=== PATIENT | male | born 1955 | race Caucasian/White ===

== ENCOUNTER → 2016-12-08 | Outpatient (CLI) | payer BC ==
[2016-12-08 08:08] LABS: ALT 30 U/L (21-72); AST 20 U/L (17-59); Alkaline Phosphatase 100 U/L (38-126); Anion Gap 9 mmol/L; Blood Urea Nitrogen 17 mg/dL (9-20); Calcium 9.3 mg/dL (8.4-10.2); Carbon Dioxide 30 mmol/L (22-30); Chloride 104 mmol/L (98-107); Cholesterol 126 mg/dL (<200); Glucose 113 mg/dL (74-99); HDL Cholesterol 47 mg/dL (40-60); Non-African American GFR(MDRD) >60 (>60 ml/min/1.73 sqM); Sodium 143 mmol/L (137-145); Total Bilirubin 0.6 mg/dL (0.2-1.3); Total Protein 6.4 g/dL (6.3-8.2); Triglycerides 88 mg/dL (<150)
== END | disposition home or self-care (01) ==
LOC: LABWHC1 07:14
PROVIDERS: ATTEND Internal Medicine Interventional Cardiology
DX: E78.2 Mixed hyperlipidemia (principal)
CPT/HCPCS: 36415; 80053; 80061

== ENCOUNTER → 2018-05-24 | Outpatient (CLI) | payer BC ==
[2018-05-24 08:29] LABS: ALT 32 U/L (21-72); AST 27 U/L (17-59); Albumin 4.2 g/dL (3.5-5.0); Alkaline Phosphatase 85 U/L (38-126); Anion Gap 8 mmol/L; Blood Urea Nitrogen 16 mg/dL (9-20); Calcium 9.2 mg/dL (8.4-10.2); Carbon Dioxide 29 mmol/L (22-30); Chloride 104 mmol/L (98-107); Cholesterol 125 mg/dL (<200); Glucose 112 mg/dL (74-99); HDL Cholesterol 41 mg/dL (40-60); LDL Cholesterol,Calculated 67 mg/dL (0-99); Potassium 3.9 mmol/L (3.5-5.1); Sodium 141 mmol/L (137-145); Total Bilirubin 0.4 mg/dL (0.2-1.3); Total Protein 6.6 g/dL (6.3-8.2); Triglycerides 85 mg/dL (<150)
== END | disposition home or self-care (01) ==
LOC: LABWHC1 07:33
PROVIDERS: ATTEND Internal Medicine Interventional Cardiology
DX: E78.2 Mixed hyperlipidemia (principal)
CPT/HCPCS: 36415; 80053; 80061

== ENCOUNTER → 2018-07-12 | Outpatient (CLI) | payer BC ==
[2018-07-12 07:46] LABS: HCT 48.6 % (39.0-53.0); HGB 15.7 gm/dL (13.0-17.5); MCH 29.7 pg (25.0-35.0); MCHC 32.4 g/dL (31.0-37.0); MCV 91.8 fL (80.0-100.0); Mean Platelet Volume 6.8; Platelet Count 315 k/uL (150-450); RDW 13.2 % (11.5-15.5); WBC 8.3 k/uL (3.8-10.6)
== END | disposition home or self-care (01) ==
LOC: LABPAT 07:17
PROVIDERS: ATTEND Surgery Plastic and Reconstructive Surgery
DX: Z01.812 Encounter for preprocedural laboratory examination (principal)
CPT/HCPCS: 36415; 85027

== ENCOUNTER 2018-07-16 05:50 | Day surgery (SDC) | payer BC ==
[2018-07-08 14:10] VITALS: BMI 31.9
[~2018-07-16 05:50] MED LIST: DEXAMETHASONE SOD PHOSPHATE 10 MG/ML 1 ML VIAL IV ONE; HEPARIN SODIUM,PORCINE 5,000 UNIT/ML 1 ML VIAL SQ ONE; LACTATED RINGERS 1,000 ML IV SCH; MIDAZOLAM 2 MG/2 ML VIAL IV PRN; ONDANSETRON 4 MG/2 ML VIAL IVP ONE; SCOPOLAMINE 1.5MG/72HR PATCH TRANSDERM ONE; ceFAZolin IN SWFI 2 GM/20 ML SYRINGE IVP ONE; fentaNYL (PF) 50 MCG/ML 2 ML AMP IV PRN
[2018-07-16] MEDS ORDERED: LIDOCAINE 1% 20 ML VIAL (10MG/ML) FOR IV START INTRADERMA ONE (06:23)
[2018-07-16] MEDS ORDERED: BUPIVACAIN-EPI 0.25%-1:200,000 30 ML VIAL SQ ONE (07:25)
--- NOTE | 2018-07-16 07:36 | P.GSHP ---
History of Present Illness H&P Date: 07/16/18 CHIEF COMPLAINT: Ventral hernia HISTORY OF PRESENT ILLNESS: The patient is a 63-year-old male who presents with a history of swelling and pain along the abdomen from a hernia. Now he presents for surgical intervention. PAST MEDICAL HISTORY: Please see list. PAST SURGICAL HISTORY: Please see list. MEDICATIONS: Please see list. ALLERGIES: Please see list. SOCIAL HISTORY: No illicit drug use FAMILY HISTORY: No reports of Crohn disease or ulcerative colitis. REVIEW OF ORGAN SYSTEMS: CONSTITUTIONAL: No reports of fevers or chills. No reports of weight loss despite prior attempts. GI: Denies any blood in stools or constipation. PHYSICAL EXAM: VITAL SIGNS: Stable GENERAL: Well-developed pleasant male in no acute distress. HEENT: No scleral icterus. Extraocular movements grossly intact. Moist buccal mucosa. NECK: Supple without lymphadenopathy. CHEST: Unlabored respirations. Equal bilateral excursions. CARDIOVASCULAR: Regular rate and rhythm. Distal 2+ pulses. ABDOMEN: Soft, nondistended. Palpable defect of the abdomen. No peritoneal signs. MUSCULOSKELETAL: No clubbing, cyanosis, or edema. ASSESSMENT: 1. Ventral hernia PLAN: 1. Recommend proceeding with robotic ventral hernia repair with mesh. 2. Benefits and risks of surgical intervention was discussed including possibility of open technique. 3. DVT prophylaxis. 4. Antibiotic prophylaxis. Past Medical History Past Medical History: Coronary Artery Disease (CAD), CVA/TIA, Hyperlipidemia, Hypertension, Myocardial Infarction ([place]) Additional Past Medical History / Comment(s): JUN 22. Last Myocardial Infarction Date:: UNKNOWN History of Any Multi-Drug Resistant Organisms: None Reported Past Surgical History: Tonsillectomy Past Anesthesia/Blood Transfusion Reactions: No Reported Reaction Past Alcohol Use History: None Reported - Past Family History Mother Family Medical History: Deep Vein Thrombosis (DVT) Medications and Allergies Home Medications Medication Instructions Recorded Confirmed Type Aspirin EC [Ecotrin] 81 mg PO HS 07/25/14 07/16/18 History Atorvastatin [Lipitor] 20 mg PO HS 07/25/14 07/16/18 History Losartan Potassium 100 mg PO QAM 07/25/14 07/16/18 History Metoprolol Succinate 25 mg PO QAM 07/25/14 07/16/18 History amLODIPine BESYLATE [Norvasc] 10 mg PO HS 07/25/14 07/16/18 History Cholecalciferol (Vitamin D3) 2,000 unit PO DAILY 02/23/15 07/16/18 History [Vitamin D] Tamsulosin HCl 0.4 mg PO DAILY 02/23/15 07/16/18 History Ubidecarenone [Co Q-10] 100 mg PO HS 02/23/15 07/16/18 History Vitamin B Complex 1 cap PO DAILY 02/23/15 07/16/18 History Clopidogrel [Plavix] 75 mg PO DAILY 07/08/18 07/16/18 History Glucosamine Sulfate 500 mg PO DAILY 07/08/18 07/16/18 History Isosorbide Mononitrate [Isosorbide 30 mg PO DAILY 07/08/18 07/16/18 History Mononitrate ER] Updraft DAILY PRN 07/16/18 History Allergies Allergy/AdvReac Type Severity Reaction Status Date / Time naproxen sodium [From Aleve] Allergy Rash/Hives Verified 07/16/18 06:14 Surgical - Exam Vital Signs Temp Pulse Resp BP Pulse Ox 97.8 F 59 L 16 102/69 95 07/16/18 06:10 07/16/18 06:10 07/16/18 06:10 07/16/18 06:10 07/16/18 06:10
[2018-07-16] MEDS ORDERED: GLYCOPYRROLATE 0.2 MG/ML 2 ML VIAL ONE (07:42)
[2018-07-16] MEDS ORDERED: LIDOCAINE 1% INJ 10MG/ML (20 ML MDV) ONE (07:42)
[2018-07-16] MEDS ORDERED: SUCCINYLCHOLINE CHLORIDE 100 MG/5 ML SYR IV ONE (07:42)
[2018-07-16] MEDS ORDERED: PROPOFOL 10 MG/ML 20 ML VIAL IV ONE (07:42)
[2018-07-16] MEDS ORDERED: NEOSTIGMINE 1 MG/ML 10 ML VIAL ONE (07:42)
[2018-07-16] MEDS ORDERED: PHENYLEPHRINE-0.9% NACL SYG 1 MG/10 ML SYRINGE ONE (07:42)
[2018-07-16] MEDS ORDERED: MIDAZOLAM 2 MG/2 ML VIAL ONE (07:42)
[2018-07-16] MEDS ORDERED: ROCURONIUM BROMIDE 10 MG/ML 10 ML VIAL IV ONE (07:42)
[2018-07-16] MEDS ORDERED: ePHEDrine SULFATE/0.9% NACL/PF 50 MG/5 ML SYRINGE IV ONE (07:42)
[2018-07-16] MEDS ORDERED: LACTATED RINGERS 1,000 ML IV ONE ×3 (08:00→10:58)
--- NOTE | 2018-07-16 09:18 | P.OP ---
Date of Procedure: 07/16/18 Description of Procedure: SURGEON: ANNA BLACKMON MD PREOPERATIVE DIAGNOSES: 1. Initial umbilical ventral hernia 2. Ischemic cardiomyopathy 3. Chronic obstructive pulmonary disease 4. Hypertensive heart disease 5. Prostatic hypertrophy disorder 6. Hyperlipidemia 7. Obesity due to excess calories, BMI 32.0 POSTOPERATIVE DIAGNOSES: 1. Initial umbilical ventral hernia, incarcerated 3 cm. 2. Ischemic cardiomyopathy 3. Chronic obstructive pulmonary disease 4. Hypertensive heart disease 5. Prostatic hypertrophy disorder 6. Hyperlipidemia 7. Obesity due to excess calories, BMI 32.0 OPERATION: 1. Robotic-assisted da Torres Xi laparoscopic repair of 3 cm initial incarcerated umbilical ventral hernia mesh, ventralight ST mesh 11.4 cm ANESTHESIA: General with local ESTIMATED BLOOD LOSS: 5 mL. SPECIMENS: None. COMPLICATIONS: None. INDICATIONS: The patient is a 63-year-old male who presents with pain along the epigastrium including periumbilical pain. Surgical intervention with laparoscopic versus robotic and open techniques were reviewed. Placement of mesh was also reviewed. Benefits and risks were thoroughly described. Informed consent was obtained. DESCRIPTION OF PROCEDURE: The patient was brought into the operating room and laid in supine position. After general induction, the abdomen had been prepped and draped in standard sterile fashion. Ioban draping was also placed. Prior to incision, a timeout protocol was confirmed with surgical team regarding the patient's name including procedures to be performed. The robot was primed prior to the procedure. A field block using local anesthetis was placed along hernia site including the proposed port sites. Initial incision was made with an #11 blade along the left upper quadrant. A 0 degree 5 mm laparoscopic trocar entry was performed. An incarcerated ventral hernia of the umbilicus was identified. A 8 mm trocar was placed along the right lateral abdominal wall approximately 12 cm lateral to the lower midline. An 8 mm port was placed along the right lower quadrant under direct localization. An 8-mm port was along the right lateral mid-abdominal wall. Placements of the ports were 15 cm from the target anatomy and 10 cm apart. The [employer] Xi robot was previously primed, prepped and draped then docked along the left side of the patient. I then sat at the robot Mirego Torres Xi console where working arms of the robot including Bovie cautery connected to robotic scissors, needle school bus driver, and graspers placed by the [employer] assistant manager. The incarcerated contents was reduced as the peritoneal fat was cleaned from the abdominal wall. Next, hemostasis was checked with cautery. The hernia defect was oversewn using #1 Stratafix with imbrication 3. Next, ventralight ST mesh 11.4 cm was placed with the rough side towards the abdominal wall. 2-0 VLOC 9 inch sutures were used to fixate the mesh. A final endoscopic imaging was obtained. All instruments and pneumoperitoneum were evacuated from the abdominal cavity. The da Torres Xi robot was undocked from the patient. I re-scrubbed into the case for closure of incisions. The incisions were reapproximated using 4-0 Monocryl in an interrupted subcuticular fashion. Liquid glue was applied to the skin after cleansing the skin with normal saline and dilute hydrogen peroxide. A dressing was placed at the umbilicus ith three(3) 4 x 4 gauze followed by Tegaderm. An abdominal binder was placed. At the end of the procedure, needle, sponge, and instrument count had been verified correct by medical surgical tech. The patient was taken to the postanesthesia care unit in stable condition. FINDINGS: 1. Ventral/Umbilical incarcerated hernia of the epigastrium, 3 x 3 cm 2. Console time 28 minutes Plan - Discharge Summary New Discharge Prescriptions: No Action Aspirin EC [Ecotrin] 81 mg PO HS amLODIPine BESYLATE [Norvasc] 10 mg PO HS Atorvastatin [Lipitor] 20 mg PO HS Metoprolol Succinate 25 mg PO QAM Losartan Potassium 100 mg PO QAM Tamsulosin HCl 0.4 mg PO DAILY Vitamin B Complex 1 cap PO DAILY Ubidecarenone [Co Q-10] 100 mg PO HS Cholecalciferol (Vitamin D3) [Vitamin D] 2,000 unit PO DAILY Isosorbide Mononitrate [Isosorbide Mononitrate ER] 30 mg PO DAILY Clopidogrel [Plavix] 75 mg PO DAILY Glucosamine Sulfate 500 mg PO DAILY Updraft DAILY PRN PRN Reason: Dyspnea Discharge Medication List Aspirin EC [Ecotrin] 81 mg PO HS 07/25/14 [History] Atorvastatin [Lipitor] 20 mg PO HS 07/25/14 [History] Losartan Potassium 100 mg PO QAM 07/25/14 [History] Metoprolol Succinate 25 mg PO QAM 07/25/14 [History] amLODIPine BESYLATE [Norvasc] 10 mg PO HS 07/25/14 [History] Cholecalciferol (Vitamin D3) [Vitamin D] 2,000 unit PO DAILY 02/23/15 [History] Tamsulosin HCl 0.4 mg PO DAILY 02/23/15 [History] Ubidecarenone [Co Q-10] 100 mg PO HS 02/23/15 [History] Vitamin B Complex 1 cap PO DAILY 02/23/15 [History] Clopidogrel [Plavix] 75 mg PO DAILY 07/08/18 [History] Glucosamine Sulfate 500 mg PO DAILY 07/08/18 [History] Isosorbide Mononitrate [Isosorbide Mononitrate ER] 30 mg PO DAILY 07/08/18 [ History] Updraft DAILY PRN 07/16/18 [History]
[2018-07-16] MEDS ORDERED: TAMSULOSIN 0.4 MG CAP.ER.24H PO STA (09:20)
[2018-07-16] MEDS ORDERED: HYDROmorphone 1 MG/ML 1 ML SYRINGE IVP ONE ×3 (09:47→15:19)
[2018-07-16] MEDS ORDERED: HYDROcodone/APAP 5-325MG 1 EACH TAB PO ONE (10:47)
[2018-07-16] MEDS ORDERED: ALBUTEROL NEBULIZED 2.5 MG/3 ML INHALATION ONE (12:49)
[2018-07-16] MEDS ORDERED: TAMSULOSIN 0.4 MG CAP.ER.24H PO ONE (14:14)
[2018-07-16] MEDS ORDERED: HYDROmorphone 1 MG/ML 1 ML SYRINGE IVP PRN (15:19)
[2018-07-16 16:24] VITALS: RESP 18
[2018-07-16] MEDS ORDERED: SODIUM CHLORIDE 0.9% 1,000 ML IV ONE (20:14)
[2018-07-16] MEDS ORDERED: ATORVASTATIN 20 MG TAB PO SCH (21:00)
[2018-07-16] MEDS ORDERED: ASPIRIN 81 MG PO SCH (21:00)
[2018-07-16] MEDS ORDERED: amLODIPine 10 MG TAB PO SCH (21:00)
[2018-07-16] MEDS ORDERED: SODIUM CHLORIDE 0.9% 1,000 ML IV SCH (21:30)
[2018-07-16] MEDS: TAMSULOSIN 0.4 MG CAP.ER.24H PO SCH (21:45)
[2018-07-16] MEDS: HYDROcodone/APAP 5-325MG 1 EACH TAB PO PRN (22:25)
[2018-07-17 01:34] VITALS: PULSE 80
[2018-07-17] MEDS: HYDROcodone/APAP 5-325MG 1 EACH TAB PO PRN ×2 (06:27→13:30)
--- NOTE | 2018-07-17 08:40 | P.PN ---
Subjective Progress Note Date: 07/16/18 HISTORY OF PRESENT ILLNESS: The patient is a 63-year-old gentleman who had a ventral hernia repair. Discharge was held secondary to inability to urinate and intraoperative low tidal volume upon induction of anesthesia. Patient has history of COPD Baseline. At the time of my assessment, pain was controlled. Patient was pending spontaneously voidance of urine. He has history of prostate disorder. PHYSICAL EXAM: GENERAL: Well-developed in no acute distress. HEENT: No scleral icterus. Extraocular movements grossly intact. Hears conversational speech. No nasal drainage. NECK: Supple without lymphadenopathy. CHEST: Nonlabored respirations with equal bilateral excursions. CARDIOVASCULAR: Regular rate and regular rhythm. Distal 2+ pulses. ABDOMEN: Obese, soft, nontender, nondistended. MUSCULOSKELETAL: No clubbing, cyanosis. Gross strength 5/5 distal lower extremities. 2+ pre-tibial pitting edema. NEURO: No focal or lateralizing signs. Cranial nerves 2 through 12 grossly within normal limits. PSYCH: Appropriate affect. Alert and oriented to person, place and time. ASSESSMENT: 1. Status post ventral hernia repair, robotic 2. Moderate to severe COPD 3. Prostatic disorder PLAN: 1. Discharge home pending spontaneous void 2. Pulmonary consultation obtained for moderate severe COPD Objective - Vital Signs Vital signs: Vital Signs Temp 97.6 F 07/16/18 23:26 Pulse 80 07/16/18 23:26 Resp 18 07/16/18 23:26 BP 136/82 07/16/18 23:26 Pulse Ox 93 L 07/16/18 23:26 Intake & Output 07/16/18 07/17/18 07/17/18 18:59 06:59 18:59 Intake Total 3588 1750 Output Total 505 2980 Balance 3083 -1230 Weight 87.09 kg Intake: IV 3050 Intake, IV Titration 1750 Amount Sodium Chloride 0.9% 1, 750 000 ml @ 50 mls/hr IV . Q20H [facility] Rx#:[id number] Sodium Chloride 0.9% 1, 1000 000 ml @ 999 mls/hr IV . Q1H1M [facility] Rx#:[id number] Oral 538 Output: Urine 500 2980 Straight 500 Estimated Blood Loss 5 Other: # Voids 4
--- NOTE | 2018-07-17 08:55 | P.DS ---
Providers Date of admission: 07/16/18 Expected date of discharge: 07/17/18 Attending physician: Erica Escalona Primary care physician: Rolly Randall - Discharge Diagnosis(es) (1) Incarcerated ventral hernia Current Visit: Yes Status: Acute (2) COPD (chronic obstructive pulmonary disease) Current Visit: Yes Status: Acute (3) Prostate disease Current Visit: Yes Status: Acute (4) Ischemic cardiomyopathy Current Visit: Yes Status: Acute Hospital Course: POSTOPERATIVE DIAGNOSES: 1. Initial umbilical ventral hernia, incarcerated 3 cm. 2. Ischemic cardiomyopathy 3. Chronic obstructive pulmonary disease 4. Hypertensive heart disease 5. Prostatic hypertrophy disorder 6. Hyperlipidemia 7. Obesity due to excess calories, BMI 32.0 COURSE: The patient is a 63-year-old male who presents with pain along the epigastrium including periumbilical pain. Surgical intervention with laparoscopic versus robotic and open techniques were reviewed. Placement of mesh was also reviewed. Benefits and risks were thoroughly described. Informed consent was obtained. Postprocedure, his pain was poorly controlled. He also had difficulty voiding. He was placed in outpatient status for prolonged postoperative recovery. Prior to discharge, he was voiding spontaneously. Patient has history of chronic COPD. He will follow up with his primary care provider as well. Follow -up in the office 3 days. Procedures: OPERATION: 1. Robotic-assisted da Torres Xi laparoscopic repair of 3 cm initial incarcerated umbilical ventral hernia mesh, ventralight ST mesh 11.4 cm ANESTHESIA: General with local ESTIMATED BLOOD LOSS: 5 mL. SPECIMENS: None. COMPLICATIONS: None. Patient Condition at Discharge: Stable Plan - Discharge Summary Discharge Rx Participant: Yes New Discharge Prescriptions: New HYDROcodone/APAP 5-325MG [[place]rill 5-325] 1 tab PO Q6HR PRN 3 Days #12 tab PRN Reason: Pain No Action Aspirin EC [Ecotrin] 81 mg PO HS amLODIPine BESYLATE [Norvasc] 10 mg PO HS Atorvastatin [Lipitor] 20 mg PO HS Metoprolol Succinate 25 mg PO QAM Losartan Potassium 100 mg PO QAM Tamsulosin HCl 0.4 mg PO DAILY Vitamin B Complex 1 cap PO DAILY Ubidecarenone [Co Q-10] 100 mg PO HS Cholecalciferol (Vitamin D3) [Vitamin D] 2,000 unit PO DAILY Isosorbide Mononitrate [Isosorbide Mononitrate ER] 30 mg PO DAILY Clopidogrel [Plavix] 75 mg PO DAILY Glucosamine Sulfate 500 mg PO DAILY Updraft DAILY PRN PRN Reason: Dyspnea Discharge Medication List Aspirin EC [Ecotrin] 81 mg PO HS 07/25/14 [History] Atorvastatin [Lipitor] 20 mg PO HS 07/25/14 [History] Losartan Potassium 100 mg PO QAM 07/25/14 [History] Metoprolol Succinate 25 mg PO QAM 07/25/14 [History] amLODIPine BESYLATE [Norvasc] 10 mg PO HS 07/25/14 [History] Cholecalciferol (Vitamin D3) [Vitamin D] 2,000 unit PO DAILY 02/23/15 [History] Tamsulosin HCl 0.4 mg PO DAILY 02/23/15 [History] Ubidecarenone [Co Q-10] 100 mg PO HS 02/23/15 [History] Vitamin B Complex 1 cap PO DAILY 02/23/15 [History] Clopidogrel [Plavix] 75 mg PO DAILY 07/08/18 [History] Glucosamine Sulfate 500 mg PO DAILY 07/08/18 [History] Isosorbide Mononitrate [Isosorbide Mononitrate ER] 30 mg PO DAILY 07/08/18 [ History] HYDROcodone/APAP 5-325MG [Morrill 5-325] 1 tab PO Q6HR PRN 3 Days #12 tab [Rx] Updraft DAILY PRN 07/16/18 [History] Follow up Appointment(s)/Referral(s): Erica Escalona MD [STAFF PHYSICIAN] - 07/19/18 Patient Instructions/Handouts: How to Use an Incentive Spirometer (ED), How to Use an Incentive Spirometer (DC), How to Use an Incentive Spirometer (GEN), Laparoscopic Herniorrhaphy (DC), Abdominal Binder (DC) Activity/Diet/Wound Care/Special Instructions: No lifting for 4 pounds in 4 weeks. May shower. Do not remove dressing. Wear abdominal binder at all times except for showering. Discharge Disposition: HOME SELF-CARE
[2018-07-17] MEDS ORDERED: LOSARTAN 50 MG TAB PO SCH (09:00)
[2018-07-17] MEDS ORDERED: NON-FORMULARY DRUG (Glucosamine Sulfate 500 MG) PO SCH (09:00)
[2018-07-17] MEDS ORDERED: METOPROLOL SUCCINATE (ER) 25 MG TAB.ER.24H PO SCH (09:00)
[2018-07-17] MEDS ORDERED: CLOPIDOGREL 75 MG TAB PO SCH (09:00)
[2018-07-17] MEDS ORDERED: ISOSORBIDE MONONITRATE ER 30 MG TAB.ER.24H PO SCH (09:00)
[2018-07-17] MEDS ORDERED: CHOLECALCIFEROL 1,000 UNIT TAB PO SCH (09:00)
[2018-07-17] MEDS: TAMSULOSIN 0.4 MG CAP.ER.24H PO SCH (09:57)
[2018-07-17 10:56] VITALS: BP 121/83; TEMP 97.8
== END 2018-07-17 13:36 | disposition home or self-care (01) ==
LOC: OR 05:50 → 3SUR 09:18 → OR 07-17 13:36
PROVIDERS: ATTEND Surgery Plastic and Reconstructive Surgery
DX: K43.6 Other and unspecified ventral hernia with obstruction, without gangrene (principal); I25.5 Ischemic cardiomyopathy; J44.9 Chronic obstructive pulmonary disease, unspecified; I25.10 Atherosclerotic heart disease of native coronary artery without angina pectoris; I11.9 Hypertensive heart disease without heart failure; I25.2 Old myocardial infarction; N40.0 Benign prostatic hyperplasia without lower urinary tract symptoms; E78.5 Hyperlipidemia, unspecified; E66.9 Obesity, unspecified; Z68.32 Body mass index [BMI] 32.0-32.9, adult; G47.33 Obstructive sleep apnea (adult) (pediatric); Z99.89 Dependence on other enabling machines and devices; Z86.73 Personal history of transient ischemic attack (TIA), and cerebral infarction without residual deficits; Z79.02 Long term (current) use of antithrombotics/antiplatelets; Z79.82 Long term (current) use of aspirin; Z79.899 Other long term (current) drug therapy; Z88.6 Allergy status to analgesic agent
CPT/HCPCS: 49653; S2900

== ENCOUNTER → 2018-12-16 | Outpatient (CLI) | payer BC ==
[2018-12-16 18:20] LABS: Albumin 4.1 g/dL (3.80-4.90); Albumin/Globulin Ratio 2.16 (1.60-3.17); Anion Gap 9.9 mmol/L (4.00-12.00); Calcium 9.5 mg/dL (8.7-10.3); Carbon Dioxide 26.1 mmol/L (21.6-31.8); Globulin 1.9 g/dL (1.6-3.3); LDL Cholesterol,Calculated 75.6 mg/dL (0.0-131.0); Potassium 4.5 mmol/L (3.5-5.5); Total Bilirubin 0.7 mg/dL (0.2-1.2); VLDL Calculation 26.4 mg/dL (5.00-40.00)
== END | disposition home or self-care (01) ==
LOC: LABWHC1 11:23
PROVIDERS: ATTEND Internal Medicine Interventional Cardiology
DX: E78.2 Mixed hyperlipidemia (principal)
CPT/HCPCS: 36415; 80053; 80061

== ENCOUNTER → 2019-04-14 | Outpatient (CLI) | payer BC ==
[2019-04-14 11:07] LABS: LDL Cholesterol,Calculated 76.4 mg/dL (0.0-131.0); VLDL Calculation 14.6 mg/dL (5.00-40.00)
== END | disposition home or self-care (01) ==
LOC: LABWHC1 06:49
PROVIDERS: ATTEND Internal Medicine Interventional Cardiology
DX: E78.2 Mixed hyperlipidemia (principal)
CPT/HCPCS: 36415; 80061; 84450; 84460

== ENCOUNTER 2019-07-09 11:00 | Emergency (ER) | payer BC ==
[2019-07-09 11:07] VITALS: BP 124/79; PULSE 57; RESP 18; TEMP 97.9
--- NOTE | 2019-07-09 11:34 | ED ---
General Adult HPI - General Chief complaint: Fall Stated complaint: fall, knee pain Time Seen by Provider: 07/09/19 11:12 Source: patient, RN notes reviewed Mode of arrival: ambulatory Limitations: no limitations - History of Present Illness Initial comments: Patient is a pleasant 64-year-old male presents emergency Department with complaints of right knee discomfort. Patient had just slipped and fallen yesterday. Patient slipped on wet floor going down the stairs. Patient twisted his knee. Patient does not believe she really landed on his knee. Patient did lightly strike his head. No headache. No loss of consciousness. No blood thinners. No weakness or confusion. Patient states he is able to ambulate on his right knee however is painful. No history of significant injury to this area previously. Discomfort is mild at rest but severe with movement. - Related Data Home Medications Medication Instructions Recorded Confirmed Aspirin EC [Ecotrin] 81 mg PO HS 07/25/14 07/09/19 Atorvastatin [Lipitor] 20 mg PO HS 07/25/14 07/09/19 Losartan Potassium 100 mg PO HS 07/25/14 07/09/19 Metoprolol Succinate 25 mg PO HS 07/25/14 07/09/19 amLODIPine BESYLATE [Norvasc] 10 mg PO HS 07/25/14 07/09/19 Cholecalciferol (Vitamin D3) 2,000 unit PO HS 02/23/15 07/09/19 [Vitamin D] Tamsulosin HCl 0.4 mg PO HS 02/23/15 07/09/19 Ubidecarenone [Co Q-10] 100 mg PO HS 02/23/15 07/09/19 Vitamin B Complex 1 cap PO HS 02/23/15 07/09/19 Clopidogrel [Plavix] 75 mg PO DAILY 07/08/18 07/16/18 Glucosamine Sulfate 500 mg PO DAILY 07/08/18 07/16/18 Isosorbide Mononitrate [Isosorbide 30 mg PO HS 07/08/18 07/09/19 Mononitrate ER] Updraft DAILY PRN 07/16/18 Tiotropium Br/Olodaterol HCl 1 spray INHALATION RT-BID 07/09/19 07/09/19 [Stiolto Respimat Inhal [place]] Previous Rx's Medication Instructions Recorded HYDROcodone/APAP 5-325MG [[place] 1 tab PO Q6HR PRN 3 Days #12 tab 07/16/18 5-325] Ibuprofen [Motrin] 600 mg PO Q6HR PRN #20 tab 07/09/19 Allergies Allergy/AdvReac Type Severity Reaction Status Date / Time naproxen sodium [From Aleve] Allergy Rash/Hives Verified 07/09/19 11:48 Review of Systems ROS Statement: Those systems with pertinent positive or pertinent negative responses have been documented in the HPI. ROS Other: All systems not noted in ROS Statement are negative. Constitutional: Denies: fever Eyes: Denies: eye pain ENT: Denies: ear pain Respiratory: Denies: cough Cardiovascular: Denies: chest pain Endocrine: Denies: fatigue Gastrointestinal: Denies: abdominal pain Genitourinary: Denies: dysuria Musculoskeletal: Denies: back pain Skin: Denies: rash Neurological: Denies: weakness Past Medical History Past Medical History: Coronary Artery Disease (CAD), CVA/TIA, Hyperlipidemia, Hypertension, Myocardial Infarction ([place]) Additional Past Medical History / Comment(s): JUN 22. Last Myocardial Infarction Date:: UNKNOWN History of Any Multi-Drug Resistant Organisms: None Reported Past Surgical History: Tonsillectomy Additional Past Surgical History / Comment(s): ventral hernia repair Past Anesthesia/Blood Transfusion Reactions: No Reported Reaction Past Psychological History: No Psychological Hx Reported Smoking Status: Former smoker Past Alcohol Use History: None Reported Past Drug Use History: None Reported - Past Family History Mother Family Medical History: Deep Vein Thrombosis (DVT) General Exam Limitations: no limitations General appearance: alert, in no apparent distress Head exam: Present: atraumatic Eye exam: Present: normal appearance Neck exam: Present: normal inspection. Absent: tenderness Respiratory exam: Present: normal lung sounds bilaterally Cardiovascular Exam: Present: regular rate, normal rhythm Expanded Peripheral pulses: 2+: Posterior Tibialis (R), Dorsalis Pedis (R) GI/Abdominal exam: Present: soft. Absent: tenderness Extremities exam: Present: other (Stable on exam. Mild swelling. Moderate tenderness. Distally the extremity is neurovascular intact.) Right Knee exam: Present: tenderness (Moderate tenderness), swelling (Mild swelling). Absent: posterior draw sign, pain/laxity with valgus, pain/laxity with varus Neurological exam: Present: alert. Absent: motor sensory deficit Psychiatric exam: Present: normal affect, normal mood Skin exam: Present: normal color Course Vital Signs 07/09/19 11:04 Temperature 97.9 F Pulse Rate 57 L Respiratory 18 Rate Blood Pressure 124/79 O2 Sat by Pulse 95 Oximetry Medical Decision Making - Medical Decision Making Patient reevaluated. Patient and family updated. - Radiology Data Radiology results: image reviewed (X-ray of the right knee shows possible small effusion, no fracture.) Disposition Clinical Impression: Fall, Knee sprain Disposition: HOME SELF-CARE Condition: Stable Instructions (If sedation given, give patient instructions): Knee Sprain (ED) Additional Instructions: Ice to affected area. Limit weightbearing. Use knee immobilizer. Please follow-up with primary care physician in the next couple days for recheck. If symptoms continue consider orthopedic evaluation. Cannot completely exclude injury to the cartilage or ligaments at this time. [id number] anti- inflammatories as needed. Return for increased pain, swelling, fever, redness, worsening symptoms or other concerns. Motrin 600 prescription has been sent to [facility] in [place] Prescriptions: Ibuprofen [Motrin] 600 mg PO Q6HR PRN #20 tab PRN Reason: Pain Is patient prescribed a controlled substance at d/c from ED?: No Referrals: Rolly Randall MD [Primary Care Provider] - 1-2 days Time of Disposition: 12:46
[2019-07-09] MEDS ORDERED: HYDROmorphone 1 MG/ML 1 ML SYRINGE IM STA (11:44)
--- NOTE | 2019-07-09 12:04 | XR ---
EXAMINATION TYPE: XR knee complete RT , 3 VIEWS DATE OF EXAM ORDERED: 07/09/2019 HISTORY: twist/fallpain. COMPARISON: None. FINDINGS: No fracture or dislocation is seen. There is fullness in the suprapatellar region suggesti ve of an effusion. IMPRESSION: 1. NO ACUTE OSSEOUS LESION. 2. I SUSPECT A SMALL JOINT EFFUSION.
[2019-07-09] MEDS ORDERED: ACET/COD 300 MG/30 MG STARTER PACK 6 TAB BTL PO STA (12:47)
== END 2019-07-09 13:05 | disposition home or self-care (01) ==
LOC: EC 11:00
DX: S83.91XA Sprain of unspecified site of right knee, initial encounter (principal); I25.10 Atherosclerotic heart disease of native coronary artery without angina pectoris; E78.5 Hyperlipidemia, unspecified; I10 Essential (primary) hypertension; I25.2 Old myocardial infarction; Z87.891 Personal history of nicotine dependence; Z88.6 Allergy status to analgesic agent; Z79.02 Long term (current) use of antithrombotics/antiplatelets; Z79.82 Long term (current) use of aspirin; Z79.899 Other long term (current) drug therapy; Z86.73 Personal history of transient ischemic attack (TIA), and cerebral infarction without residual deficits; W01.0XXA Fall on same level from slipping, tripping and stumbling without subsequent striking against object, initial encounter; W10.9XXA Fall (on) (from) unspecified stairs and steps, initial encounter; Y93.01 Activity, walking, marching and hiking
CPT/HCPCS: 73562; 99283; 96372; J1170

== ENCOUNTER → 2019-10-10 | Outpatient (CLI) | payer BC ==
[2019-10-10 17:28] LABS: African American GFR (CKD) 92.4 (60.0-200.0); Albumin 4.3 g/dL (3.80-4.90); Albumin/Globulin Ratio 2.53 (1.60-3.17); Anion Gap 6.8 mmol/L (4.00-12.00); Carbon Dioxide 29.2 mmol/L (21.6-31.8); Chol/HDL Ratio 3.07; Globulin 1.7 g/dL (1.6-3.3); LDL Cholesterol,Calculated 69.6 mg/dL (0.0-131.0); Non-African American GFR(CKD) 79.7 (60.0-200.0); Potassium 3.9 mmol/L (3.5-5.5); Total Bilirubin 0.7 mg/dL (0.2-1.2); VLDL Calculation 21.4 mg/dL (5.00-40.00)
== END | disposition home or self-care (01) ==
LOC: LABWHC1 07:38
PROVIDERS: ATTEND Nurse Practitioner Adult Health
DX: I10 Essential (primary) hypertension (principal); E78.2 Mixed hyperlipidemia; I25.5 Ischemic cardiomyopathy
CPT/HCPCS: 36415; 80053; 80061

== ENCOUNTER 2021-02-05 17:19 | Observation (INO) | payer BC, MEDICARE ==
--- NOTE | 2021-02-05 18:12 | ED ---
Chest Pain HPI - General Chief Complaint: Chest Pain Stated Complaint: Chest Pain, sent from Time Seen by Provider: 02/05/21 17:41 Source: patient, family, RN notes reviewed Mode of arrival: wheelchair Limitations: no limitations - History of Present Illness Initial Comments: This is a 66-year-old male with a parent prior history of MIs but no history of stenting or cardiovascular procedures who states she's been having exertional dyspnea and left-sided chest pain intermittently over last 2 weeks. This is new for him he was actually in [place] when he started noticing his exertional dyspnea. He was seen by his doctor's office today and sent here for further evaluation currently is not short of breath while at rest she has slight amount left-sided chest pain he points to his left lateral costal chondral junction. No cough phlegm production fevers chills sweats or other symptoms patient also states that he has been having some edema of the stroke back from [place] he does get edema after this time he has no Pain. MD Complaint: chest pain, other - Related Data Home Medications Medication Instructions Recorded Confirmed Losartan Potassium 100 mg PO DAILY 07/25/14 02/05/21 Metoprolol Succinate 25 mg PO DAILY 07/25/14 02/05/21 Tamsulosin HCl 0.4 mg PO DAILY 02/23/15 02/05/21 Ubidecarenone [Co Q-10] 100 mg PO DAILY 02/23/15 02/05/21 Vitamin B Complex 1 cap PO DAILY 02/23/15 02/05/21 Glucosamine Sulfate 500 mg PO DAILY 07/08/18 02/05/21 Isosorbide Mononitrate [Isosorbide 30 mg PO DAILY 07/08/18 02/05/21 Mononitrate ER] Albuterol Nebulized [Ventolin 2.5 mg INHALATION RT-Q6H PRN 02/05/21 02/05/21 Nebulized] Atorvastatin Calcium [Lipitor] 20 mg PO DAILY 02/05/21 02/05/21 Furosemide [Lasix] 40 mg PO DAILY PRN 02/05/21 02/05/21 amLODIPine [Norvasc] 10 mg PO DAILY 02/05/21 02/05/21 metFORMIN HCL [Glucophage] 500 mg PO DAILY 02/05/21 02/05/21 Allergies Allergy/AdvReac Type Severity Reaction Status Date / Time naproxen sodium [From Aleve] Allergy Rash/Hives Verified 02/05/21 21:20 Review of Systems ROS Statement: Those systems with pertinent positive or pertinent negative responses have been documented in the HPI. ROS Other: All systems not noted in ROS Statement are negative. EKG Findings - EKG Results: EKG: interpreted by ASHLEY, sinus rhythm (Sinus rhythm a 72 VT interval 162 QRS 102 QT since QTC 414/453 this is consistent with the 1 presented from the office from today.) Past Medical History Past Medical History: Coronary Artery Disease (CAD), CVA/TIA, Hyperlipidemia, Hypertension, Myocardial Infarction ([place]) Additional Past Medical History / Comment(s): JUN 22. Last Myocardial Infarction Date:: UNKNOWN History of Any Multi-Drug Resistant Organisms: None Reported Past Surgical History: Tonsillectomy Additional Past Surgical History / Comment(s): ventral hernia repair Past Anesthesia/Blood Transfusion Reactions: No Reported Reaction Past Psychological History: No Psychological Hx Reported Past Alcohol Use History: None Reported Past Drug Use History: None Reported - Past Family History Mother Family Medical History: Deep Vein Thrombosis (DVT) General Exam - General Exam Comments Initial Comments: This is a well-developed well-nourished awake alert oriented 3 male Limitations: no limitations General appearance: alert, in no apparent distress Head exam: Present: atraumatic, normocephalic, normal inspection Eye exam: Present: normal appearance, PERRL, EOMI. Absent: scleral icterus, conjunctival injection, periorbital swelling ENT exam: Present: normal exam, mucous membranes moist Neck exam: Present: normal inspection, full ROM, other (No stridor JVD or bruits). Absent: tenderness, meningismus, lymphadenopathy Respiratory exam: Present: normal lung sounds bilaterally, chest wall tenderness (Reproducible left-sided chest pain this does reproduce the pain the patient has been experiencing). Absent: respiratory distress, wheezes, rales, rhonchi, stridor Cardiovascular Exam: Present: regular rate, normal rhythm, normal heart sounds. Absent: systolic murmur, diastolic murmur, rubs, gallop, clicks GI/Abdominal exam: Present: soft, normal bowel sounds. Absent: distended, tenderness, guarding, rebound, rigid Extremities exam: Present: normal inspection, full ROM, normal capillary refill, pedal edema. Absent: tenderness, joint swelling, calf tenderness Back exam: Present: normal inspection Neurological exam: Present: alert, oriented X3, CN II-XII intact Psychiatric exam: Present: normal affect, normal mood Skin exam: Present: warm, dry, intact, normal color. Absent: rash Course Vital Signs 02/05/21 02/05/21 02/05/21 17:22 17:59 20:57 Temperature 97.7 F Pulse Rate 78 56 L Pulse Rate [ 72 Legal Practice Manager ] Respiratory 20 16 18 Rate Blood Pressure 174/118 124/79 O2 Sat by Pulse 92 L Oximetry Chest Pain MDM - MDM Imaging reviewed x-ray negative CT ultrasound negative for evidence of clotting. I did discuss findings with the patient and his . Patient be admitted for cardiology consultation the presentation is consistent with unstable angina. Dr. Reynolds who is covering for Dr. Borjas Disposition Clinical Impression: Chest pain, Unstable angina pectoris Disposition: ADMITTED IP TO THIS HOSP Condition: Fair Referrals: Rolly Randall MD [Primary Care Provider] - 1-2 days
[2021-02-05 18:36] LABS: Basophils # (A) 0.1 k/uL (0-0.2); Basophils % (A) 1 %; Eosinophils # (A) 0.4 k/uL (0-0.7); Eosinophils % (A) 5 %; HCT 47.9 % (39.0-53.0); HGB 16.5 gm/dL (13.0-17.5); Lymphocytes # (A) 1.6 k/uL (1.0-4.8); Lymphocytes % (A) 21 %; MCH 30.9 pg (25.0-35.0); MCHC 34.5 g/dL (31.0-37.0); MCV 89.6 fL (80.0-100.0); Mean Platelet Volume 7.7; Monocytes # (A) 0.7 k/uL (0-1.0); Monocytes % (A) 9 %; Neutrophils % (A) 63 %; Platelet Count 270 k/uL (150-450); RBC 5.35 m/uL (4.30-5.90); RDW 13.4 % (11.5-15.5); WBC 7.9 k/uL (3.8-10.6)
[2021-02-05 18:47] LABS: ALT 16 U/L (4-49); AST 26 U/L (17-59); African American GFR (CKD) >90 (>60 ml/min/1.73 sqM); Albumin 4.6 g/dL (3.5-5.0); Alkaline Phosphatase 107 U/L (38-126); Anion Gap 9 mmol/L; Blood Urea Nitrogen 15 mg/dL (9-20); Calcium 9.8 mg/dL (8.4-10.2); Carbon Dioxide 31 mmol/L (22-30); Chloride 100 mmol/L (98-107); Creatine Kinase 216 U/L (55-170); Glucose 93 mg/dL (74-99); Non-African American GFR(CKD) >90 (>60 ml/min/1.73 sqM); Potassium 4.1 mmol/L (3.5-5.1); Sodium 140 mmol/L (137-145); Total Bilirubin 0.5 mg/dL (0.2-1.3); Total Protein 7.4 g/dL (6.3-8.2)
[2021-02-05 18:50] LABS: INR 0.9 (<1.2); Partial Thromboplastin Time 23.9 sec (22.0-30.0); Prothrombin Time 9.6 sec (9.0-12.0)
--- NOTE | 2021-02-05 18:52 | XR ---
EXAMINATION TYPE: XR chest 2V DATE OF EXAM: 02/05/2021 COMPARISON: 07/20/2014 HISTORY: Chest pain TECHNIQUE: FINDINGS: There is no heart failure nor confluent pneumonic infiltrate. There is slight increased int erstitial density at the lung bases. There are no hilar masses. There are chest leads. Bony thorax is intact. IMPRESSION: Multiple fibrotic changes. Normal heart. No adverse change.
--- NOTE | 2021-02-05 20:16 | CT ---
EXAMINATION TYPE: CT angio chest DATE OF EXAM: 02/05/2021 COMPARISON: None HISTORY: chest pain CT DLP: 465.6 mGycm Automated exposure control for dose reduction was used. CONTRAST: Performed with IV Contrast, patient injected with 85cc mL of Isovue 370. Images obtained from the thoracic inlet to the diaphragm with IV contrast and 3-D post processed imag es. There is mild pulmonary emphysema. The lungs are clear of consolidation. There is some mild subsegmen kyrie atelectasis at the lung bases. Heart size is normal. There is no pleural effusion. There is no pe ricardial effusion. There is no mediastinal adenopathy. There are no hilar masses. Thoracic aorta shows mild atheromatous change. 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 There is no dissection. There is normal contrast opacification of the pulmonary arteries. There are no filling defects. Thoracic vertebra have normal spacing and alignment. Posterior elements are intact. There is no compr ession fracture. Sternum is intact. IMPRESSION: No evidence of pulmonary embolism. Normal heart. Subsegmental atelectasis at the posterior lung bases. Mild pulmonary emphysema.
--- NOTE | 2021-02-05 21:14 | US ---
EXAMINATION TYPE: US venous doppler duplex LE DATE OF EXAM: 02/05/2021 8:57 PM COMPARISON: NONE CLINICAL HISTORY: Peripheral edema with elevated d-dimer. Peripheral edema x 5 weeks. Elevated D Dime r. No hx of DVT. Patient not taking blood thinners. SIDE PERFORMED: Bilateral TECHNIQUE: The lower extremity deep venous system is examined utilizing real time linear array sonog kenneth with graded compression, doppler sonography and color-flow sonography. VESSELS IMAGED: Common Femoral Vein Deep Femoral Vein Greater Saphenous Vein * Femoral Vein Popliteal Vein Small Saphenous Vein * Proximal Calf Veins (* superficial vessels) *Limited due to edema. Right Leg: No evidence of DVT in veins imaged at this time from prox calf veins to CFV/GSV. Duplicat e popliteal vein seen. Left Leg: No evidence of DVT in veins imaged at this time from prox calf veins to CFV/GSV. IMPRESSION: No sign of deep vein thrombosis in both legs.
[2021-02-05] MEDS ORDERED: HEPARIN SODIUM 1,000 UN/ML (10ML VL) IV ONE (21:37)
[2021-02-05] MEDS ORDERED: NITROGLYCERIN SL TABS 0.4 MG TAB SUBLINGUAL PRN (21:37)
[2021-02-05] MEDS ORDERED: ASPIRIN 81 MG PO STA (21:37)
[2021-02-05] MEDS ORDERED: ALBUTEROL NEBULIZED 2.5 MG/3 ML INHALATION PRN (21:39)
[2021-02-05] MEDS ORDERED: HEPARIN SOD,PORK IN 0.45% NACL 25,000 UNIT in 0.45% NACL 1 250ML.BAG IV SCH (21:45)
[2021-02-05 23:10] LABS: Glucose,Whole Blood 140 mg/dL (75-99)
[2021-02-06 04:17] LABS: Cholesterol 138 mg/dL (<200); HDL Cholesterol 46 mg/dL (40-60); LDL Cholesterol,Calculated 80 mg/dL (0-99); Triglycerides 62 mg/dL (<150)
[2021-02-06 07:23] LABS: Glucose,Whole Blood 106 mg/dL (75-99)
[2021-02-06] MEDS ORDERED: NON FORMULARY DRUG (Glucosamine Sulfate 500 MG Cap) PO SCH (09:00)
[2021-02-06] MEDS ORDERED: FUROSEMIDE 40 MG TAB PO PRN (09:00)
[2021-02-06] MEDS ORDERED: ASPIRIN 325 MG TAB PO SCH (09:00)
[2021-02-06] MEDS ORDERED: NON FORMULARY DRUG (Ubidecarenone [Co Q-10] 100 MG Capsule) PO SCH (09:00)
[2021-02-06] MEDS: ASPIRIN 81 MG PO SCH (09:05)
[2021-02-06] MEDS: LOSARTAN 50 MG TAB PO SCH (09:05)
[2021-02-06] MEDS: TAMSULOSIN 0.4 MG CAP.ER.24H PO SCH (09:05)
[2021-02-06] MEDS: ATORVASTATIN 20 MG TAB PO SCH (09:06)
[2021-02-06] MEDS: ISOSORBIDE MONONITRATE ER 30 MG TAB.ER.24H PO SCH (09:06)
[2021-02-06] MEDS: amLODIPine 10 MG TAB PO SCH (09:06)
[2021-02-06] MEDS: metFORMIN 500 MG TAB PO SCH (09:06)
[2021-02-06] MEDS: FOLIC ACID-VIT B COMPLEX-VIT C 1 CAP PO SCH (09:39)
--- NOTE | 2021-02-06 10:25 | P.CRDCN ---
History of Present Illness Consult date: 02/06/21 History of present illness: HISTORY OF PRESENT ILLNESS: This is a 66-year-old male with a past medical history significant for myocardial infarction, coronary artery disease, CVA/TIA, hypertension, hyperlipidemia, and former nicotine dependence. Patient follows in the office with Dr. Mcneil. We have been asked to see the patient in consultation for chest pain. Patient examined at the bedside. Patient reports he has been having increased lower extremity edema for the past 4 weeks. He also reports intermittent chest pressure for the last 4 weeks. Patient states the chest pressure is in the left upper chest and occurs only with exertion. He denied any shortness of breath or radiation of the pain. Patient states he was in [place] for 2 weeks and thought his lower extremity edema was just related to the hot weather but it has not improved since being back in [place]. Patient states he went to see his primary care physician yesterday who completed an EKG and recommended that the patient come to the hospital for further evaluation. EKG reveals sinus mechanism with no signs of acute ischemia. Left axis deviation. Chest xray multiple fibrotic changes. Normal heart. Laboratory data: WBC 7.9. Hemoglobin 16.5. Platelet count 270. D-dimer 0.63. Sodium 140. Potassium 4.1. BUN 15. Creatinine 0.84. Troponin negative 3. Current home cardiac medications include Norvasc 10 mg daily, Lasix 40 mg daily, Lipitor 20 mg daily, losartan 100 mg daily, Imdur 30 mg daily, and metoprolol succinate [address]: Negative for CTA Cardiac catheterization history: 2013 revealing chronically occluded mid RCA. Moderate disease of left circumflex with mild to moderate disease of the LAD. Ejection fraction around 50%. REVIEW OF SYSTEMS: At the time of my exam: CONSTITUTIONAL: Denies fever or chills. HEENT: Denies blurred vision, vision changes, or eye pain. Denies hemoptysis CARDIOVASCULAR: Denies chest pain. Denies orthopnea. Denies PND. Denies palpitations RESPIRATORY: Denies shortness of breath. GASTROINTESTINAL: Denies abdominal pain. Denies nausea or vomiting. HEMATOLOGIC: Denies bleeding disorders. GENITOURINARY: Denies any blood in urine. SKIN: Denies pruitis. Denies rash. PHYSICAL EXAM: VITAL SIGNS: Reviewed. GENERAL: Well-developed in no acute distress. HEENT: Head is normocephalic. Pupils are equal, round. Sclerae anicteric. Mucous membranes of the mouth are moist. Neck supple. No JVD or thyromegaly LUNGS: Respirations even and unlabored. Lungs essentially clear to auscultation bilaterally. HEART: Regular rate and rhythm. S1 and S2 heard. ABDOMEN: Soft. Nondistended. Nontender. EXTREMITIES: Normal range of motion. No clubbing or cyanosis. Peripheral pulses intact. No lower extremity edema NEUROLOGIC: Awake and alert. Oriented x 3. ASSESSMENT: Chest pain and increased lower extremity edema 4 weeks Coronary artery disease Hypertension Hyperlipidemia CVA/TIA Former nicotine dependence PLAN: An acute coronary event has been ruled out Decrease aspirin to 81 mg daily Discontinue IV heparin Resume home cardiac medications Patient to undergo Dobutamine stress test today Further recommendations pending patient course Nurse practitioner note has been reviewed by physician. Signing provider agrees with the documented findings, assessment, and plan of care. Past Medical History Past Medical History: Coronary Artery Disease (CAD), CVA/TIA, Hyperlipidemia, Hypertension, Myocardial Infarction ([place]) Additional Past Medical History / Comment(s): JUN 22. Last Myocardial Infarction Date:: UNKNOWN History of Any Multi-Drug Resistant Organisms: None Reported Past Surgical History: Tonsillectomy Additional Past Surgical History / Comment(s): ventral hernia repair Past Anesthesia/Blood Transfusion Reactions: No Reported Reaction Past Psychological History: No Psychological Hx Reported Smoking Status: Former smoker Past Alcohol Use History: None Reported Past Drug Use History: None Reported - Past Family History Mother Family Medical History: Deep Vein Thrombosis (DVT) Medications and Allergies Home Medications Medication Instructions Recorded Confirmed Type Losartan Potassium 100 mg PO DAILY 07/25/14 02/05/21 History Metoprolol Succinate 25 mg PO DAILY 07/25/14 02/05/21 History Tamsulosin HCl 0.4 mg PO DAILY 02/23/15 02/05/21 History Ubidecarenone [Co Q-10] 100 mg PO DAILY 02/23/15 02/05/21 History Vitamin B Complex 1 cap PO DAILY 02/23/15 02/05/21 History Glucosamine Sulfate 500 mg PO DAILY 07/08/18 02/05/21 History Isosorbide Mononitrate [Isosorbide 30 mg PO DAILY 07/08/18 02/05/21 History Mononitrate ER] Albuterol Nebulized [Ventolin 2.5 mg INHALATION RT-Q6H PRN 02/05/21 02/05/21 History Nebulized] Atorvastatin Calcium [Lipitor] 20 mg PO DAILY 02/05/21 02/05/21 History Furosemide [Lasix] 40 mg PO DAILY PRN 02/05/21 02/05/21 History amLODIPine [Norvasc] 10 mg PO DAILY 02/05/21 02/05/21 History metFORMIN HCL [Glucophage] 500 mg PO DAILY 02/05/21 02/05/21 History Allergies Allergy/AdvReac Type Severity Reaction Status Date / Time naproxen sodium [From Aleve] Allergy Rash/Hives Verified 02/05/21 21:20 Physical Exam Vitals: Vital Signs Temp Pulse Pulse Pulse Resp BP BP 02/06/21 09:11 02/06/21 07:00 97.4 F L 63 18 124/65 02/06/21 02:30 97.5 F L 55 L 15 126/73 02/06/21 02:00 17 02/05/21 23:10 97.7 F 65 16 102/65 02/05/21 22:00 97.3 F L 65 18 103/79 02/05/21 20:57 56 L 18 124/79 02/05/21 17:59 72 16 02/05/21 17:22 97.7 F 78 20 174/118 Pulse Ox 02/06/21 09:11 97 02/06/21 07:00 92 L 02/06/21 02:30 92 L 02/06/21 02:00 02/05/21 23:10 90 L 02/05/21 22:00 95 02/05/21 20:57 02/05/21 17:59 02/05/21 17:22 92 L Intake and Output 02/05/21 02/06/21 02/06/21 22:59 06:59 14:59 Intake Total 200 Balance 200 Intake: Oral 200 Other: Voiding Method Toilet Toilet # Voids 1 2 Weight 92.533 kg Results 02/05/21 18:22 02/05/21 18:22 Cardiac Enzymes 02/05/21 02/05/21 02/05/21 Range/Units 18:22 18:22 21:58 AST 26 (17-59) U/L Troponin I <0.012 <0.012 (0.000-0.034) ng/mL 02/06/21 Range/Units 00:28 AST (17-59) U/L Troponin I <0.012 (0.000-0.034) ng/mL Coagulation 02/05/21 02/06/21 Range/Units 18:22 05:36 PT 9.6 (9.0-12.0) sec APTT 23.9 34.9 H (22.0-30.0) sec Lipids 02/06/21 Range/Units 00:28 Triglycerides 62 (<150) mg/dL Cholesterol 138 (<200) mg/dL HDL Cholesterol 46 (40-60) mg/dL CBC 02/05/21 Range/Units 18:22 WBC 7.9 (3.8-10.6) k/uL RBC 5.35 (4.30-5.90) m/uL Hgb 16.5 (13.0-17.5) gm/dL Hct 47.9 (39.0-53.0) % Plt Count 270 (150-450) k/uL Comprehensive Metabolic Panel 02/05/21 Range/Units 18:22 Sodium 140 (137-145) mmol/L Potassium 4.1 (3.5-5.1) mmol/L Chloride 100 (98-107) mmol/L Carbon Dioxide 31 H (22-30) mmol/L BUN 15 (9-20) mg/dL Creatinine 0.84 (0.66-1.25) mg/dL Glucose 93 (74-99) mg/dL Calcium 9.8 (8.4-10.2) mg/dL AST 26 (17-59) U/L ALT 16 (4-49) U/L Alkaline Phosphatase 107 (38-126) U/L Total Protein 7.4 (6.3-8.2) g/dL Albumin 4.6 (3.5-5.0) g/dL Current Medications Generic Name Dose Route Start Last Admin Trade Name Freq PRN Reason Stop Dose Admin Albuterol Sulfate 2.5 mg 02/05/21 21:39 Albuterol Nebulized 2.5 Mg/3 Ml INHALATION RT-Q6H PRN Shortness Of Breath Amlodipine Besylate 10 mg 02/06/21 09:00 02/06/21 09:06 Amlodipine 10 Mg Tab PO 10 mg DAILY AVELINO Administration Aspirin 81 mg 04/14/21 09:00 02/06/21 09:05 Aspirin 81 Mg PO 81 mg DAILY AVELINO Administration Atorvastatin Calcium 20 mg 02/06/21 09:00 02/06/21 09:06 Atorvastatin 20 Mg Tab PO 20 mg DAILY AVELINO Administration Furosemide 40 mg 02/06/21 09:00 Furosemide 40 Mg Tab PO DAILY PRN Edema Isosorbide Mononitrate 30 mg 02/06/21 09:00 02/06/21 09:06 Isosorbide Mononitrate Er 30 Mg Tab.Er.24h PO 30 mg DAILY AVELINO Administration Losartan Potassium 100 mg 02/06/21 09:00 02/06/21 09:05 Losartan 50 Mg Tab PO 100 mg DAILY AVELINO Administration Metformin HCl 500 mg 02/06/21 09:00 02/06/21 09:06 Metformin 500 Mg Tab PO 500 mg DAILY AVELINO Administration Metoprolol Succinate 25 mg 02/06/21 09:00 Metoprolol Succinate (Er) 25 Mg Tab.Er.24h PO DAILY [facility] Multivit/Ca Carb/B Cmplx/FA/Prenat 1 each 02/06/21 09:00 02/06/21 09:39 Folic Acid-Vit B Complex-Vit C 1 Cap PO 1 each DAILY AVELINO Administration Nitroglycerin 0.4 mg 02/05/21 21:37 Nitroglycerin Sl Tabs 0.4 Mg Tab SUBLINGUAL Q5M PRN Chest Pain Tamsulosin HCl 0.4 mg 02/06/21 09:00 02/06/21 09:05 Tamsulosin 0.4 Mg Cap.Er.24h PO 0.4 mg DAILY AVELINO Administration Intake and Output 02/05/21 02/06/21 02/06/21 22:59 06:59 14:59 Intake Total 200 Balance 200 Intake: Oral 200 Other: Voiding Method Toilet Toilet # Voids 1 2 Weight 92.533 kg 02/05/21 18:22 02/05/21 18:22
[2021-02-06] MEDS: METOPROLOL SUCCINATE (ER) 25 MG TAB.ER.24H PO SCH (10:52)
[2021-02-06] MEDS ORDERED: DOBUTamine DRIP for NUC MED 500 MG in DEXTROSE/WATER 1 250ML.BAG IV PRN (11:00)
[2021-02-06] MEDS ORDERED: ATROPINE SULFATE 0.1 MG/ML 10ML SYRINGE ONE (11:22)
--- NOTE | 2021-02-06 11:59 | ECHOF ---
Referral Reason:Chest pain, lv function MEASUREMENTS -------- HEIGHT: 165.1 cm WEIGHT: 92.5 kg BP: 126/73 RVIDd: 3.8 cm (< 3.3) IVSd: 1.5 cm (0.6 - 1.1) LVIDd: 4.0 cm (3.9 - 5.3) LVPWd: 1.4 cm (0.6 - 1.1) IVSs: 2.1 cm LVIDs: 2.7 cm LVPWs: 1.8 cm LA Diam: 3.5 cm (2.7 - 3.8) Ao Diam: 3.3 cm (2.0 - 3.7) AV Cusp: 2.0 cm (1.5 - 2.6) MV EXCURSION: 12.148 mm (> 18.000) MV EF SLOPE: 39 mm/s (70 - 150) EPSS: 0.5 cm MV E Greg: 0.64 m/s MV DecT: 291 ms MV A Greg: 0.83 m/s MV E/A Ratio: 0.78 RAP: 5.00 mmHg RVSP: 34.14 mmHg FINDINGS -------- Resting bradycardia (HR<60bpm). This was a technically adequate study. The left ventricular size is normal. There is moderate concentric left ventricular hypertrophy. O verall left ventricular systolic function is low-normal with, an EF between 50 - 55 %. Basal inferi or LV wall motion is hypokinetic. The right ventricle is mild to moderately enlarged. The left atrium is normal in size. The right atrium is normal in size. 5.0mg of Lumason was utilized for enhancement of images Interatrial and interventricular septum intact. There is mild aortic valve sclerosis. Mild mitral annular calcification present. Mild tricuspid regurgitation present. There is borderline pulmonary artery hypertension. The righ t ventricular systolic pressure, as measured by Doppler, is 34.14mmHg. There is no pulmonic regurgitation present. The aortic root size is normal. Normal inferior vena cava with normal inspiratory collapse consistent with estimated right atrial pre ssure of 5 mmHg. There is no pericardial effusion. CONCLUSIONS -------- 1. Resting bradycardia (HR<60bpm). 2. The left ventricular size is normal. 3. There is moderate concentric left ventricular hypertrophy. 4. Overall left ventricular systolic function is low-normal with, an EF between 50 - 55 %. 5. Basal inferior LV wall motion is hypokinetic. 6. The right ventricle is mild to moderately enlarged. 7. 5.0mg of Lumason was utilized for enhancement of images 8. There is mild aortic valve sclerosis. 9. Mild mitral annular calcification present. 10. Mild tricuspid regurgitation present. 11. There is borderline pulmonary artery hypertension. 12. The right ventricular systolic pressure, as measured by Doppler, is 34.14mmHg. 13. There is no pericardial effusion. FOOD PREPARATION SUPERVISOR: Moon Singleton RDCS
[2021-02-06 12:14] LABS: Glucose,Whole Blood 114 mg/dL (75-99)
[2021-02-06] MEDS: BUDESONIDE 1 MG/2 ML NEBU INHALATION SCH ×2 (12:15→20:25)
[2021-02-06] MEDS: FORMOTEROL FUMARATE 20 MCG/2 ML NEBU INHALATION SCH ×2 (12:15→20:25)
[2021-02-06] MEDS: IPRATROPIUM-ALBUTEROL 3 ML NEB INHALATION SCH ×3 (12:17→20:25)
--- NOTE | 2021-02-06 13:18 | ECHOS ---
STRESS ECHOCARDIOGRAM LUMASON: N/A Vial INDICATIONS: Chest pain. MEDICATIONS: BASELINE HEART RATE: 55 BASELINE BLOOD PRESSURE: 119/79 MAXIMUM HEART RATE: 132 MAXIMUM BLOOD PRESSURE: 119/79 85% MPHR: 132 100% MPHR: 155 METS: N/A MAXIMUM STAGE REACHED: 5 TOTAL EXERCISE TIME: CLINICAL INFORMATION: Baseline EKG shows sinus rhythm, poor R-wave progression. The patient was given intravenous dobutamine over a period of 15 minutes as per protocol. The patient also received 0.5 mg of atropine, achieving 85% of predicted maximal heart rate without chest pain or diagnostic ST-segment depression. Occasional PVCs were noted during dobutamine infusion. Baseline echo shows normal left ventricular size and systolic function with an ejection fraction of 60%. Basal inferior wall is hypokinetic at rest. Post dobutamine infusion, there is normal hyperdynamic response of the anterior wall, lateral wall, septum, proximal and mid inferior wall. Basal inferior wall remains unchanged. CONCLUSIONS: 1. Negative stress test by EKG criteria. 2. Negative dobutamine echo. 3. Basal inferior wall motion abnormality suggestive of prior small inferior wall myocardial infarction. MMODL / IJN: [id number] /
[2021-02-06] MEDS: methylPREDNISolone SOD SUCCI 40 MG/ML 1 ML VIAL IV SCH ×2 (13:19→21:05)
[2021-02-06 17:20] LABS: Glucose,Whole Blood 187 mg/dL (75-99)
[2021-02-06 20:52] LABS: Glucose,Whole Blood 241 mg/dL (75-99)
--- NOTE | 2021-02-06 21:43 | P.HPIM ---
History of Present Illness H&P Date: 02/06/21 Chief Complaint: Chest pain/shortness of breath History of presenting complaint: This is a pleasant 66-year-old patient of Dr. Rolly Randall. Chronic stable medical conditions include coronary artery disease with prior CT in 2013 with no coronary intervention, hypertension, hyperlipidemia. Patient is noticed some leg leg swelling for about a month. Patient has noticed increasing short of breath. Also noticed left infraclavicular chest pain. Increase with activity better with rest. Patient getting easily short winded. On 2 episodes he had some perspiration. No dizziness or lightheadedness. Patient also has been wheezing. No fever no chills. Denies any orthopnea. Review of systems: GEN.: Tired EYES: None HEENT: None NECK: None RESPIRATORY: As above CARDIOVASCULAR: As above GASTROINTESTINAL: None GENITOURINARY: None MUSCULOSKELETAL: None LYMPHATICS: None HEMATOLOGICAL: None PSYCHIATRY: None NEUROLOGICAL: None Past medical history to include: Coronary artery disease with CT in 2014 with no intervention, stroke, hypertension, hyperlipidemia Social history: Patient smoked about 2 packs a day for 45 years stopped about 3 years ago. . Retired from [employer]. No alcohol. Physical examination: VITAL SIGNS: 97.7, 78, 20, 1 24 x 79, 92% room air GENERAL: BMI 33.9, sitting up, awake. EYES: Pupils equal. Conjunctiva normal. HEENT: External appearance of nose and ears normal, oral cavity grossly normal. NECK: JVD not raised; masses not palpable. HEART: First and second heart sounds are normal; no edema. LUNGS: Respiratory rate increased, diminished breath sounds prolonged expiration. ABDOMEN: Soft, nontender, liver spleen not palpable, no masses palpable. PSYCH: Alert and oriented x3; mood and affect normal. NEUROLOGICAL: Cranial nerves grossly intact; no facial asymmetry, power and sensation grossly intact. LYMPHATICS: No lymph nodes palpable in the axilla and neck INVESTIGATIONS, reviewed in the clinical context: WBC 7.9 hemoglobin 16.5 platelets 270 d-dimer 0.63 potassium 4.1 creatinine 0.84 Troponin I 3 negative LDL 80 Coronavirus [PCR] not detected EKG tracing personally reviewed by me-poor R-wave progression. Normal sinus rhythm Doppler ultrasound of lower extremities: Negative in both the legs Chest x-ray film personally reviewed by me-borderline cardiomegaly. Prominent pulmonary artery 2-D echocardiogram: Moderate concentric LVH. EF 50-55% basal inferior LV wall is hypokinetic. Assessment and plan: -Possible unstable angina in a patient with known coronary artery disease. Trop onin 3 negative. Patient having a stress test. Was placed on IV heparin in the ER. Aspirin. Stress test -Coronary artery disease with prior CT 3 years ago On beta dima, Cozaar -Acute COPD exacerbation in a previous smoker Patient be started on nebulized bronchodilators, IV steroids, inhaled steroids, long-acting beta agonist -Diabetes mellitus type 2 on oral hypoglycemic Follow Accu-Cheks BPH: Continue with Flomax Care was discussed with the patient. Questions answered. Stress test pending. Past Medical History Past Medical History: Coronary Artery Disease (CAD), CVA/TIA, Hyperlipidemia, Hypertension, Myocardial Infarction (CT) Additional Past Medical History / Comment(s): JUN 22. Last Myocardial Infarction Date:: UNKNOWN History of Any Multi-Drug Resistant Organisms: None Reported Past Surgical History: Tonsillectomy Additional Past Surgical History / Comment(s): ventral hernia repair Past Anesthesia/Blood Transfusion Reactions: No Reported Reaction Past Psychological History: No Psychological Hx Reported Smoking Status: Former smoker Past Alcohol Use History: None Reported Past Drug Use History: None Reported - Past Family History Mother Family Medical History: Deep Vein Thrombosis (DVT) Medications and Allergies Home Medications Medication Instructions Recorded Confirmed Type Losartan Potassium 100 mg PO DAILY 07/25/14 02/05/21 History Metoprolol Succinate 25 mg PO DAILY 07/25/14 02/05/21 History Tamsulosin HCl 0.4 mg PO DAILY 02/23/15 02/05/21 History Ubidecarenone [Co Q-10] 100 mg PO DAILY 02/23/15 02/05/21 History Vitamin B Complex 1 cap PO DAILY 02/23/15 02/05/21 History Glucosamine Sulfate 500 mg PO DAILY 07/08/18 02/05/21 History Isosorbide Mononitrate [Isosorbide 30 mg PO DAILY 07/08/18 02/05/21 History Mononitrate ER] Albuterol Nebulized [Ventolin 2.5 mg INHALATION RT-Q6H PRN 02/05/21 02/05/21 History Nebulized] Atorvastatin Calcium [Lipitor] 20 mg PO DAILY 02/05/21 02/05/21 History Furosemide [Lasix] 40 mg PO DAILY PRN 02/05/21 02/05/21 History amLODIPine [Norvasc] 10 mg PO DAILY 02/05/21 02/05/21 History metFORMIN HCL [Glucophage] 500 mg PO DAILY 02/05/21 02/05/21 History Aspirin 81 mg PO DAILY #90 chewable 02/06/21 Rx Nitroglycerin Sl Tabs [Nitrostat] 0.4 mg SUBLINGUAL Q5M PRN #25 tab 02/06/21 Rx Allergies Allergy/AdvReac Type Severity Reaction Status Date / Time naproxen sodium [From Aleve] Allergy Rash/Hives Verified 02/05/21 21:20 Physical Exam Vitals: Vital Signs Temp Pulse Pulse Pulse Resp BP BP 02/06/21 09:11 02/06/21 07:00 97.4 F L 63 18 124/65 02/06/21 02:30 97.5 F L 55 L 15 126/73 02/06/21 02:00 17 02/05/21 23:10 97.7 F 65 16 102/65 02/05/21 22:00 97.3 F L 65 18 103/79 02/05/21 20:57 56 L 18 124/79 02/05/21 17:59 72 16 02/05/21 17:22 97.7 F 78 20 174/118 Pulse Ox 02/06/21 09:11 97 02/06/21 07:00 92 L 02/06/21 02:30 92 L 02/06/21 02:00 02/05/21 23:10 90 L 02/05/21 22:00 95 02/05/21 20:57 02/05/21 17:59 02/05/21 17:22 92 L Intake and Output 02/05/21 02/06/21 02/06/21 22:59 06:59 14:59 Intake Total 200 Balance 200 Intake: Oral 200 Other: Voiding Method Toilet Toilet # Voids 1 2 Weight 92.533 kg Results CBC & Chem 7: 02/05/21 18:22 02/05/21 18:22 Labs: Abnormal Lab Results - Last 24 Hours (Table) 02/05/21 02/05/21 02/05/21 Range/Units 18:22 18:22 23:09 APTT (22.0-30.0) sec D-Dimer 0.63 H (<0.60) mg/L FEU Carbon Dioxide 31 H (22-30) mmol/L POC Glucose (mg/dL) 140 H (75-99) mg/dL Creatine Kinase 216 H (55-170) U/L 02/06/21 02/06/21 Range/Units 05:36 07:22 APTT 34.9 H (22.0-30.0) sec D-Dimer (<0.60) mg/L FEU Carbon Dioxide (22-30) mmol/L POC Glucose (mg/dL) 106 H (75-99) mg/dL Creatine Kinase (55-170) U/L Thrombosis Risk Factor Assmnt - Choose All That Apply Any of the Below Risk Factors Present?: Yes Each Factor Represents 1 point: Obesity (BMI >25), Swollen legs (current) Other Risk Factors: Yes Each Risk Factor Represents 2 Points: Age 61-74 years Other congenital or acquired thrombophilia - If yes, enter type in comment: No Thrombosis Risk Factor Assessment Total Risk Factor Score: 4 Thrombosis Risk Factor Assessment Level: Moderate Risk
[2021-02-07] MEDS: methylPREDNISolone SOD SUCCI 40 MG/ML 1 ML VIAL IV SCH (03:49)
[2021-02-07] MEDS: IPRATROPIUM-ALBUTEROL 3 ML NEB INHALATION SCH ×2 (07:04→10:45)
[2021-02-07] MEDS: FORMOTEROL FUMARATE 20 MCG/2 ML NEBU INHALATION SCH (07:04)
[2021-02-07] MEDS: BUDESONIDE 1 MG/2 ML NEBU INHALATION SCH (07:04)
[2021-02-07 07:08] VITALS: RESP 18
[2021-02-07 07:14] LABS: Glucose,Whole Blood 177 mg/dL (75-99)
[2021-02-07] MEDS: metFORMIN 500 MG TAB PO SCH (09:02)
[2021-02-07] MEDS: TAMSULOSIN 0.4 MG CAP.ER.24H PO SCH (09:02)
[2021-02-07] MEDS: ATORVASTATIN 20 MG TAB PO SCH (09:02)
[2021-02-07] MEDS: amLODIPine 10 MG TAB PO SCH (09:02)
[2021-02-07] MEDS: LOSARTAN 50 MG TAB PO SCH (09:02)
[2021-02-07] MEDS: METOPROLOL SUCCINATE (ER) 25 MG TAB.ER.24H PO SCH (09:02)
[2021-02-07] MEDS: ASPIRIN 81 MG PO SCH (09:02)
[2021-02-07] MEDS: ISOSORBIDE MONONITRATE ER 30 MG TAB.ER.24H PO SCH (09:03)
[2021-02-07] MEDS: FOLIC ACID-VIT B COMPLEX-VIT C 1 CAP PO SCH (09:03)
[2021-02-07 09:52] VITALS: BP 119/80; TEMP 97.6
[2021-02-07 10:57] VITALS: PULSE 70
--- NOTE | 2021-02-07 13:35 | P.PN ---
Subjective Progress Note Date: 02/07/21 HISTORY OF PRESENT ILLNESS: This is a 66-year-old male with a past medical history significant for myocardial infarction, coronary artery disease, CVA/TIA, hypertension, hyperlipidemia, and former nicotine dependence. Patient follows in the office with Dr. Mcneil. We have been asked to see the patient in consultation for chest pain. Patient examined at the bedside. Patient reports he has been having increased lower extremity edema for the past 4 weeks. He also reports intermi ttent chest pressure for the last 4 weeks. Patient states the chest pressure is in the left upper chest and occurs only with exertion. He denied any shortness of breath or radiation of the pain. Patient states he was in [place] for 2 weeks and thought his lower extremity edema was just related to the hot weather but it has not improved since being back in [place]. Patient states he went to see his primary care physician yesterday who completed an EKG and recommended that the patient come to the hospital for further evaluation. EKG reveals sinus mechanism with no signs of acute ischemia. Left axis deviation. Chest xray multiple fibrotic changes. Normal heart. Laboratory data: WBC 7.9. Hemoglobin 16.5. Platelet count 270. D-dimer 0.63. Sodium 140. Potassium 4.1. BUN 15. Creatinine 0.84. Troponin negative 3. Current home cardiac medications include Norvasc 10 mg daily, Lasix 40 mg daily, Lipitor 20 mg daily, losartan 100 mg daily, Imdur 30 mg daily, and metoprolol succinate [address]: Negative for CTA Cardiac catheterization history: 2013 revealing chronically occluded mid RCA. Moderate disease of left circumflex with mild to moderate disease of the LAD. Ejection fraction around 50%. 02/07/2021 Patient examined this morning at the bedside. Patient denies chest pain or pressure. He denies shortness of breath. Patient underwent a dobutamine stress test yesterday which was negative for stress-induced ischemia. Echocardiogram completed revealed ejection fraction 50-55%, basal inferior LV wall hypokinesis, mild tricuspid regurgitation, and borderline pulmonary artery hypertension. PHYSICAL EXAM: VITAL SIGNS: Reviewed. GENERAL: Well-developed in no acute distress. HEENT: Head is normocephalic. Pupils are equal, round. Sclerae anicteric. Mucous membranes of the mouth are moist. Neck supple. No JVD or thyromegaly LUNGS: Respirations even and unlabored. Lungs essentially clear to auscultation bilaterally. HEART: Regular rate and rhythm. S1 and S2 heard. ABDOMEN: Soft. Nondistended. Nontender. EXTREMITIES: Normal range of motion. No clubbing or cyanosis. Peripheral pulses intact. No lower extremity edema NEUROLOGIC: Awake and alert. Oriented x 3. ASSESSMENT: Chest pain and increased lower extremity edema 4 weeks Coronary artery disease Hypertension Hyperlipidemia CVA/TIA Former nicotine dependence PLAN: Patient is currently stable from a cardiac standpoint Patient to follow up outpatient with Dr. Mcneil Nurse practitioner note has been reviewed by physician. Signing provider agrees with the documented findings, assessment, and plan of care. Objective - Vital Signs Vital signs: Vital Signs Temp 97.6 F 02/07/21 07:52 Pulse 70 02/07/21 10:57 Resp 18 02/07/21 10:57 BP 119/80 02/07/21 07:52 Pulse Ox 93 L 02/07/21 07:52 Intake & Output 02/06/21 02/07/21 02/07/21 18:59 06:59 18:59 Intake Total 800 Balance 800 Weight 92.53 kg Intake: Oral 800 Other: Voiding Method Toilet Toilet Toilet # Voids 2 - Labs CBC & Chem 7: 02/05/21 18:22 02/05/21 18:22 Labs: Abnormal Lab Results - Last 24 Hours (Table) 02/06/21 02/06/21 02/07/21 Range/Units 17:19 20:51 07:13 POC Glucose (mg/dL) 187 H 241 H 177 H (75-99) mg/dL
--- NOTE | 2021-02-09 00:43 | P.DS ---
Providers Date of admission: 02/05/21 21:40 Expected date of discharge: 02/07/21 Attending physician: Sourav Borjas Consults: 02/05/21 21:37 Consult Physician Urgent Consulting Provider: Danilo Roy Consult Reason/Comments: Chest pain Do you want consulting provider notified?: Yes, Notify in am Primary care physician: Rolly Randall [facility] Course: Chief Complaint: Chest pain/shortness of breath History of presenting complaint: This is a pleasant 66-year-old patient of Dr. Rolly Randall. Chronic stable medical conditions include coronary artery disease with prior NE in 2013 with no coronary intervention, hypertension, hyperlipidemia. Patient is noticed some leg leg swelling for about a month. Patient has noticed increasing short of breath. Also noticed left infraclavicular chest pain. Increase with activity better with rest. Patient getting easily short winded. On 2 episodes he had some perspiration. No dizziness or lightheadedness. Patient also has been wheezing. No fever no chills. Denies any orthopnea. Admitted with some anterior chest pain. And COPD exacerbation. Troponin is negative. Dobutamine stress echocardiogram was negative. Treated with a burst of steroids bronchodilators. Today: Respiratory symptoms are greatly improved. Care was discussed with the patient. Patient to follow-up with cardiology is an outpatient. Consultation: Dr. Haroon Barry from cardiology Past medical history to include: Coronary artery disease with NE in 2013 with no intervention, stroke, hypertension, hyperlipidemia Social history: Patient smoked about 2 packs a day for 45 years stopped about 3 years ago. . Retired from [employer]. No alcohol. Physical examination: VITAL SIGNS: 97.6, 79, 18, 119/80, 93% on room air GENERAL: Sitting up, comfortable EYES: Pupils equal. Conjunctiva normal. HEENT: External appearance of nose and ears normal, oral cavity grossly normal. NECK: JVD not raised; masses not palpable. HEART: First and second heart sounds are normal; no edema. LUNGS: Respiratory rate normal, improved air entry ABDOMEN: Soft, nontender, liver spleen not palpable, no masses palpable. PSYCH: Alert and oriented x3; mood and affect normal. INVESTIGATIONS, reviewed in the clinical context: WBC 7.9 hemoglobin 16.5 platelets 270 d-dimer 0.63 potassium 4.1 creatinine 0.84 Troponin I 3 negative LDL 80 Coronavirus [PCR] not detected EKG tracing personally reviewed by me-poor R-wave progression. Normal sinus rhythm Doppler ultrasound of lower extremities: Negative in both the legs Chest x-ray film personally reviewed by me-borderline cardiomegaly. Prominent pulmonary artery 2-D echocardiogram: Moderate concentric LVH. EF 50-55% basal inferior LV wall is hypokinetic. Dobutamine stress echocardiogram negative for ischemia Assessment and plan: -Possible unstable angina in a patient with known coronary artery disease. Troponin 3 negative. Negative dobutamine stress echocardiogram -Coronary artery disease with prior NE 3 years ago On beta dima, Cozaar -Acute COPD exacerbation in a previous smoker Patient be started on nebulized bronchodilators, IV steroids, inhaled steroids, long-acting beta agonist-improved -Diabetes mellitus type 2 on oral hypoglycemic Follow Accu-Cheks BPH: Continue with Flomax Disposition: Home Patient Condition at Discharge: Fair Plan - Discharge Summary Discharge Rx Participant: No New Discharge Prescriptions: New Aspirin 81 mg PO DAILY #90 chewable Nitroglycerin Sl Tabs [Nitrostat] 0.4 mg SUBLINGUAL Q5M PRN #25 tab PRN Reason: Chest Pain Ipratropium-Albuterol Nebulize [Duoneb 0.5 mg-3 mg/3 ml Soln] 3 ml INHALATION TID #90 ml predniSONE 10 mg PO DAILY #30 tab Budesonide/Formoterol Fumarate [Symbicort 80-4.5 Mcg Inhaler] 1 puff INHALATION BID #1 inhaler Continue Metoprolol Succinate 25 mg PO DAILY Losartan Potassium 100 mg PO DAILY Tamsulosin HCl 0.4 mg PO DAILY Vitamin B Complex 1 cap PO DAILY Ubidecarenone [Co Q-10] 100 mg PO DAILY Isosorbide Mononitrate [Isosorbide Mononitrate ER] 30 mg PO DAILY Glucosamine Sulfate 500 mg PO DAILY Furosemide [Lasix] 40 mg PO DAILY PRN PRN Reason: Edema metFORMIN HCL [Glucophage] 500 mg PO DAILY amLODIPine [Norvasc] 10 mg PO DAILY Atorvastatin Calcium [Lipitor] 20 mg PO DAILY Albuterol Nebulized [Ventolin Nebulized] 2.5 mg INHALATION RT-Q6H PRN PRN Reason: Shortness Of Breath Discharge Medication List Losartan Potassium 100 mg PO DAILY 07/25/14 [History] Metoprolol Succinate 25 mg PO DAILY 07/25/14 [History] Tamsulosin HCl 0.4 mg PO DAILY 02/23/15 [History] Ubidecarenone [Co Q-10] 100 mg PO DAILY 02/23/15 [History] Vitamin B Complex 1 cap PO DAILY 02/23/15 [History] Glucosamine Sulfate 500 mg PO DAILY 07/08/18 [History] Isosorbide Mononitrate [Isosorbide Mononitrate ER] 30 mg PO DAILY 07/08/18 [History] Albuterol Nebulized [Ventolin Nebulized] 2.5 mg INHALATION RT-Q6H PRN 02/05/21 [History] Atorvastatin Calcium [Lipitor] 20 mg PO DAILY 02/05/21 [History] Furosemide [Lasix] 40 mg PO DAILY PRN 02/05/21 [History] amLODIPine [Norvasc] 10 mg PO DAILY 02/05/21 [History] metFORMIN HCL [Glucophage] 500 mg PO DAILY 02/05/21 [History] Aspirin 81 mg PO DAILY #90 chewable 02/06/21 [Rx] Nitroglycerin Sl Tabs [Nitrostat] 0.4 mg SUBLINGUAL Q5M PRN #25 tab 02/06/21 [Rx] Budesonide/Formoterol Fumarate [Symbicort 80-4.5 Mcg Inhaler] 1 puff INHALATION BID #1 inhaler 02/07/21 [Rx] Ipratropium-Albuterol Nebulize [Duoneb 0.5 mg-3 mg/3 ml Soln] 3 ml INHALATION TID #90 ml 02/07/21 [Rx] predniSONE 10 mg PO DAILY #30 tab 02/07/21 [Rx] Follow up Appointment(s)/Referral(s): Nadine Mcneil MD [STAFF PHYSICIAN] - 2 Weeks Rolly Randall MD [Primary Care Provider] - 1-2 days Patient Instructions/Handouts: Chest Pain (DC), COPD (Chronic Obstructive Pulmonary Disease) (DC) Discharge Disposition: HOME SELF-CARE
== END 2021-02-07 12:15 | disposition home or self-care (01) ==
LOC: EC 17:19 → 6NMEDSUR 21:40
PROVIDERS: ADMIT Hospitalist; ATTEND Hospitalist
DX: R07.89 Other chest pain (principal); I25.10 Atherosclerotic heart disease of native coronary artery without angina pectoris; J43.9 Emphysema, unspecified; I10 Essential (primary) hypertension; E78.5 Hyperlipidemia, unspecified; R60.0 Localized edema; E11.9 Type 2 diabetes mellitus without complications; N40.0 Benign prostatic hyperplasia without lower urinary tract symptoms; E66.9 Obesity, unspecified; Z68.33 Body mass index [BMI] 33.0-33.9, adult; I07.1 Rheumatic tricuspid insufficiency; Z20.822 Contact with and (suspected) exposure to COVID-19; Z79.84 Long term (current) use of oral hypoglycemic drugs; Z79.899 Other long term (current) drug therapy; Z88.6 Allergy status to analgesic agent; I25.2 Old myocardial infarction; Z86.73 Personal history of transient ischemic attack (TIA), and cerebral infarction without residual deficits; Z87.891 Personal history of nicotine dependence; Z98.890 Other specified postprocedural states; Z82.49 Family history of ischemic heart disease and other diseases of the circulatory system
CPT/HCPCS: 96376 ×4; 96365 ×2; 96366 ×2; 96375; 93005 ×2; 99285; 36415; 94640 ×4; 94760 ×2; 93351; 85379; 83880; 80061; 80053; 82550; 83735; 84484 ×2; 85025; 85610; 85730 ×2; 87635; 71046; 93970; 71275; G0378 ×3; C8929; J1250; J2920 ×2; J0461; J1644 ×2; Q9950; Q9967; 93306

== ENCOUNTER → 2021-06-25 | Outpatient (CLI) | payer MEDICARE ==
--- NOTE | 2021-06-25 12:01 | US ---
EXAMINATION TYPE: US venous doppler duplex LE LT DATE OF EXAM: 06/25/2021 11:54 AM COMPARISON: US CLINICAL HISTORY: R79.1 ddimer above range. D Dimer above range. No hx of DVT. Patient is on blood th inner, unsure what kind. SIDE PERFORMED: Left TECHNIQUE: The lower extremity deep venous system is examined utilizing real time linear array sonog kenneth with graded compression, doppler sonography and color-flow sonography. VESSELS IMAGED: Common Femoral Vein Deep Femoral Vein Greater Saphenous Vein * Femoral Vein Popliteal Vein Small Saphenous Vein * Proximal Calf Veins (* superficial vessels) Left Leg: No evidence of DVT in veins imaged at this time. IMPRESSION: 1. Left lower extremity ultrasound negative for deep venous thrombosis.
== END | disposition home or self-care (01) ==
LOC: RADUSWWP 11:24
PROVIDERS: ATTEND Family Medicine
DX: R79.1 Abnormal coagulation profile (principal)

== ENCOUNTER → 2021-06-25 | Outpatient (CLI) | payer MEDICARE ==
--- NOTE | 2021-06-25 14:26 | XR ---
EXAMINATION TYPE: XR knee limited LT DATE OF EXAM: 06/25/2021 COMPARISON: None HISTORY: Pain in left knee TECHNIQUE: Left knee is examined in 2 views FINDINGS: Minimal narrowing of the medial lateral compartments is present. Minimal joint effusion may be present. No acute fractures or dislocations are evident. IMPRESSION: 1. Suggestion of a minimal joint effusion with mild joint space narrowing.
== END | disposition home or self-care (01) ==
LOC: RADXRMAIN 10:41
PROVIDERS: ATTEND Nurse Practitioner Adult Health
DX: M25.562 Pain in left knee (principal)

== ENCOUNTER → 2021-08-05 | Outpatient (CLI) | payer MEDICARE ==
[2021-08-05 16:48] LABS: Albumin 4.3 g/dL (3.8-4.9); Albumin/Globulin Ratio 2.03 (1.60-3.17); Anion Gap 11.2 mmol/L (4.00-12.00); BUN/Creat Ratio 15.39 Ratio (12.00-20.00); Blood Urea Nitrogen 15.7 mg/dL (9.0-27.0); Calcium 9.5 mg/dL (8.7-10.3); Carbon Dioxide 26.3 mmol/L (21.6-31.8); Chol/HDL Ratio 3.33 Ratio; Globulin 2.1 g/dL (1.6-3.3); HDL Cholesterol 44.2 mg/dL (40.00-60.00); Non-African American GFR(CKD) 76.8 (60.0-200.0); Total Bilirubin 0.4 mg/dL (0.30-1.20); Total Protein 6.5 g/dL (6.2-8.2); Triglycerides 83.9 mg/dL (0.00-149.00); VLDL Calculation 16.78 mg/dL (5.00-40.00)
== END | disposition home or self-care (01) ==
LOC: LABWHC1 08:27
PROVIDERS: ATTEND Internal Medicine Interventional Cardiology
DX: E78.2 Mixed hyperlipidemia (principal)
CPT/HCPCS: 36415; 80053; 80061

== ENCOUNTER → 2022-01-07 | Outpatient (CLI) | payer MEDICARE ==
[2022-01-07 19:14] LABS: ALT 13 U/L (10-49); AST 18 U/L (14-35)
[2022-01-07 19:15] LABS: Chol/HDL Ratio 3.87 Ratio; LDL Cholesterol,Calculated 93.3 mg/dL (0.0-131.0)
== END | disposition home or self-care (01) ==
LOC: LABWHC1 09:52
PROVIDERS: ATTEND Internal Medicine Interventional Cardiology
DX: E78.2 Mixed hyperlipidemia (principal)
CPT/HCPCS: 36415; 80061; 84450; 84460

== ENCOUNTER → 2023-01-26 | Outpatient (CLI) | payer MEDICARE ==
[2023-01-26 10:51] LABS: ALT 14 U/L (10-49); AST 15 U/L (14-35); African American GFR (CKD) 80.1 (60.0-200.0); Albumin/Globulin Ratio 1.74 (1.60-3.17); Alkaline Phosphatase 100 U/L (41-126); BUN/Creat Ratio 16.55 Ratio (12.00-20.00); Blood Urea Nitrogen 18.2 mg/dL (9.0-27.0); Calcium 9.5 mg/dL (8.7-10.3); Carbon Dioxide 29.8 mmol/L (20.0-27.5); Chloride 103 mmol/L (96-109); Chol/HDL Ratio 3.52 Ratio; Globulin 2.3 g/dL (1.6-3.3); Glucose 114 mg/dL (70-110); LDL Cholesterol,Calculated 81.5 mg/dL (0.0-131.0); Non-African American GFR(CKD) 69.1 (60.0-200.0); Potassium 4.8 mmol/L (3.5-5.5); Sodium 140 mmol/L (135-145); Total Protein 6.3 g/dL (6.2-8.2); VLDL Calculation 17.34 mg/dL (5.00-40.00)
== END | disposition home or self-care (01) ==
LOC: LABWHC1 07:31
PROVIDERS: ATTEND Internal Medicine Interventional Cardiology
DX: I10 Essential (primary) hypertension (principal); E78.2 Mixed hyperlipidemia
CPT/HCPCS: 36415; 80053; 80061

== ENCOUNTER → 2023-06-30 | Outpatient (CLI) | payer MEDICARE ==
--- NOTE | 2023-07-09 09:16 | EST ---
EXERCISE STRESS The patient was monitored between the and 07 July 2023. The rhythm strip revealed atrial fibrillation. The patient had converted back to sinus mechanism with a conversion pause of 2.8 seconds on the 30 of June. Single PVCs were noted. Quality of the tracings was suboptimal. No symptoms were reported. GISELE / ABDI: [id number] /
== END | disposition home or self-care (01) ==
LOC: RADECHMAIN 11:36
PROVIDERS: ATTEND Family Medicine
DX: I48.91 Unspecified atrial fibrillation (principal)
CPT/HCPCS: 93270

== ENCOUNTER → 2023-07-01 | Outpatient (CLI) | payer MEDICARE ==
[2023-07-01 16:55] LABS: ALT 16 U/L (10-49); AST 20 U/L (14-35); Chol/HDL Ratio 2.98 Ratio; LDL Cholesterol,Calculated 74.7 mg/dL (0.0-131.0)
== END | disposition home or self-care (01) ==
LOC: LABWHC1 08:45
PROVIDERS: ATTEND Internal Medicine Interventional Cardiology
DX: E78.2 Mixed hyperlipidemia (principal)
CPT/HCPCS: 36415; 80061; 84450; 84460

== ENCOUNTER → 2023-09-29 | Outpatient (CLI) | payer MEDICARE ==
[2023-09-29 11:02] LABS: ALT 18 U/L (4-49); AST 22 U/L (17-59); African American GFR (CKD) >90 (>60 ml/min/1.73 sqM); Albumin 4.1 g/dL (3.5-5.0); Albumin/Globulin Ratio 1.5; Alkaline Phosphatase 103 U/L (38-126); Anion Gap 9 mmol/L; Blood Urea Nitrogen 20 mg/dL (9-20); Calcium 9.6 mg/dL (8.4-10.2); Carbon Dioxide 29 mmol/L (22-30); Chloride 97 mmol/L (98-107); Globulin 2.7 g/dL; Glucose 99 mg/dL (74-99); Non-African American GFR(CKD) 83 (>60 ml/min/1.73 sqM); Potassium 4.7 mmol/L (3.5-5.1); Sodium 135 mmol/L (137-145); Total Bilirubin 0.7 mg/dL (0.2-1.3); Total Protein 6.8 g/dL (6.3-8.2)
[2023-09-29 11:09] LABS: NT-Pro-B-Type Natriuretic Pept 83 pg/mL
== END | disposition home or self-care (01) ==
LOC: LABWHC1 09:37
PROVIDERS: ATTEND Internal Medicine Interventional Cardiology
DX: I25.5 Ischemic cardiomyopathy (principal)
CPT/HCPCS: 36415; 80053; 83880

== ENCOUNTER → 2024-01-20 | Outpatient (CLI) | payer MEDICARE ==
[2024-01-20 16:39] LABS: ALT 15 U/L (10-49); AST 14 U/L (14-35); Chol/HDL Ratio 2.72 Ratio; LDL Cholesterol,Calculated 75.2 mg/dL (0.0-131.0); VLDL Calculation 11.48 mg/dL (5.00-40.00)
== END | disposition home or self-care (01) ==
LOC: LABWHC1 08:52
PROVIDERS: ATTEND Internal Medicine Interventional Cardiology
DX: E78.2 Mixed hyperlipidemia (principal)
CPT/HCPCS: 36415; 80061; 84450; 84460

== ENCOUNTER → 2024-07-01 | Outpatient (CLI) | payer MEDICARE ==
--- NOTE | 2024-07-01 17:23 | CT ---
EXAMINATION TYPE: CT abdomen pelvis wo con CT DLP: 497.6 mGycm, Automated exposure control for dose reduction was used. DATE OF EXAM: 07/01/2024 5:09 PM COMPARISON: None eCLINICAL INDICATION: Male, 69 years old with history of R10.31 RIGHT LOWER QUADRANT PAIN; Abdominal pain in RLQ x1 week. TECHNIQUE: Axial CT abdomen pelvis wo con;Sagittal and coronal reformats were created on a separate workstation. Contrast used: mL of , (none if empty) Oral contrast used: without Oral Contrast (none if empty) FINDINGS: LOWER CHEST: Unremarkable ABDOMEN LIVER: Unremarkable GALLBLADDER AND BILE DUCTS: Unremarkable. PANCREAS: Unremarkable. SPLEEN: Unremarkable. ADRENAL GLANDS: Unremarkable. KIDNEYS AND URETERS: No evidence of hydronephrosis or renal calculus. The ureters are unremarkable. P robable right renal cyst. PELVIS BLADDER: Unremarkable REPRODUCTIVE: Unremarkable. ABDOMEN & PELVIS STOMACH AND BOWEL: No evidence of bowel obstruction. Scattered colonic diverticula. The appendix is v isualized and has some mild inflammation changes around it measures at the upper limits of normal sli ghtly enlarged for thickness at 9 mm. No organizing fluid collection. PERITONEUM/RETROPERITONEUM: No evidence of pneumoperitoneum or free fluid. 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 Se levar atherosclerosis of the arterial vasculature. MUSCULOSKELETAL: No acute osseous abnormalities LYMPH NODES: No gross evidence for lymphadenopathy. SOFT TISSUE/ABDOMINAL WALL: Unremarkable IMPRESSION: 1. Prominent appendix thickness with mild inflammation changes correlate for appendicitis. 2. Colonic diverticulosis. No definitive evidence for diverticulitis. 3. No obstructive uropathy or renal calculus. 4. 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
== END | disposition home or self-care (01) ==
LOC: RADCTMAIN 16:40
PROVIDERS: ATTEND Family Medicine
DX: K57.30 Diverticulosis of large intestine without perforation or abscess without bleeding (principal)
CPT/HCPCS: 74176

== ENCOUNTER 2024-07-04 12:32 | Inpatient (IN) | payer MEDICARE ==
--- NOTE | 2024-07-04 13:18 | ED ---
General Adult HPI - General Chief complaint: Recheck/Abnormal Lab/Rx Stated complaint: PCP referral Time Seen by Provider: 07/04/24 13:04 Source: patient, RN notes reviewed Mode of arrival: ambulatory Limitations: no limitations - History of Present Illness Initial comments: Patient is a 69-year-old male presenting to the emergency department with abnor mal labs. Patient had blood work done today with reported abnormal troponin. Patient has had fatigue over the past month. Patient did have dark stool several weeks ago followed by abdominal discomfort. Outpatient CT scan was concerning for possible appendicitis and patient was advised to follow-up with surgery. Patient states abdominal discomfort has near resolved at this time. Patient does have dyspnea at this worse with exertion however this is chronic and unchanged, no chest pain. - Related Data Home Medications Medication Instructions Recorded Confirmed Losartan Potassium 100 mg PO DAILY 07/25/14 02/05/21 Metoprolol Succinate 25 mg PO DAILY 07/25/14 02/05/21 Tamsulosin HCl 0.4 mg PO DAILY 02/23/15 02/05/21 Ubidecarenone [Co Q-10] 100 mg PO DAILY 02/23/15 02/05/21 Vitamin B Complex 1 cap PO DAILY 02/23/15 02/05/21 Glucosamine Sulfate 500 mg PO DAILY 07/08/18 02/05/21 Isosorbide Mononitrate [Isosorbide 30 mg PO DAILY 07/08/18 02/05/21 Mononitrate ER] Albuterol Nebulized [Ventolin 2.5 mg INHALATION RT-Q6H PRN 02/05/21 02/05/21 Nebulized] Atorvastatin Calcium [Lipitor] 20 mg PO DAILY 02/05/21 02/05/21 Furosemide [Lasix] 40 mg PO DAILY PRN 02/05/21 02/05/21 amLODIPine [Norvasc] 10 mg PO DAILY 02/05/21 02/05/21 metFORMIN HCL [Glucophage] 500 mg PO DAILY 02/05/21 02/05/21 Previous Rx's Medication Instructions Recorded Aspirin 81 mg PO DAILY #90 chewable 02/06/21 Nitroglycerin Sl Tabs [Nitrostat] 0.4 mg SUBLINGUAL Q5M PRN #25 tab 02/06/21 Budesonide/Formoterol Fumarate 1 puff INHALATION BID #1 inhaler 02/07/21 [Symbicort 80-4.5 Mcg Inhaler] Ipratropium-Albuterol Nebulize 3 ml INHALATION TID #90 ml 02/07/21 [Duoneb 0.5 mg-3 mg/3 ml Soln] predniSONE 10 mg PO DAILY #30 tab 02/07/21 Allergies Allergy/AdvReac Type Severity Reaction Status Date / Time naproxen sodium [From Aleve] Allergy Rash/Hives Verified 07/04/24 12:39 Review of Systems ROS Statement: Those systems with pertinent positive or pertinent negative responses have been documented in the HPI. ROS Other: All systems not noted in ROS Statement are negative. Constitutional: Denies: fever Eyes: Denies: eye pain ENT: Denies: ear pain Respiratory: Reports: as per HPI Cardiovascular: Denies: chest pain Endocrine: Denies: fatigue Gastrointestinal: Reports: as per HPI Past Medical History Past Medical History: Coronary Artery Disease (CAD), CVA/TIA, Hyperlipidemia, Hypertension, Myocardial Infarction ([place]) Additional Past Medical History / Comment(s): JUN 22. Last Myocardial Infarction Date:: UNKNOWN History of Any Multi-Drug Resistant Organisms: None Reported Past Surgical History: Tonsillectomy Additional Past Surgical History / Comment(s): ventral hernia repair Past Anesthesia/Blood Transfusion Reactions: No Reported Reaction Past Psychological History: No Psychological Hx Reported Smoking Status: Former smoker Past Alcohol Use History: None Reported Past Drug Use History: None Reported - Past Family History Mother Family Medical History: Deep Vein Thrombosis (DVT) General Exam Limitations: no limitations General appearance: alert, in no apparent distress Head exam: Present: normocephalic Eye exam: Present: normal appearance Neck exam: Present: normal inspection Respiratory exam: Present: normal lung sounds bilaterally Cardiovascular Exam: Present: regular rate, normal rhythm Expanded Peripheral pulses: 2+: Dorsalis Pedis (R), Dorsalis Pedis (L) GI/Abdominal exam: Present: soft. Absent: distended, tenderness, pulsatile mass Extremities exam: Present: normal inspection. Absent: pedal edema, calf tenderness Neurological exam: Present: alert Psychiatric exam: Present: normal affect, normal mood Skin exam: Present: normal color Course Vital Signs 07/04/24 07/04/24 12:37 14:46 Temperature 97.4 F L Pulse Rate 76 65 Respiratory 16 16 Rate Blood Pressure 130/90 124/87 O2 Sat by Pulse 91 L 93 L Oximetry EKG Findings - EKG Results: EKG: interpreted by ERMD (Q wave V1 V2. Nonspecific T waves. frequent premature supraventricular complexes), sinus rhythm, normal axis Medical Decision Making - Medical Decision Making Macro was pt. sent in by a medical professional or institution (, [facility], THERAPEUTIC RADIOLOGIST, urgent care, hospital, or correction...) When possible be specific @ -Patient was sent in by primary care physician office Did you speak to anyone other than the patient for history (EMS, parent, family, police, friend...)? What history was obtained from this source @ - is present helps provide history including recent abnormal CT Did you review nursing and triage notes (agree or disagree)? Why? @ -I reviewed and agree with nursing and triage notes Were old charts reviewed (outside hosp., previous admission, EMS record, old EKG, old radiological studies, urgent care reports/EKG's, correction records)? Report findings @ -CT scan reviewed from 3 days ago with concern for appendicitis Differential Diagnosis (chest pain, altered mental status, abdominal pain women, abdominal pain men, vaginal bleeding, weakness, fever, dyspnea, syncope, headache, dizziness, GI bleed, back pain, seizure, CVA, palpatations, mental health, musculoskeletal)? @ -Differential Chest Pain: Stable Angina, Unstable Angina, STEMI, NSTEMI Aortic Dissection, Pneumothorax, Musculoskeletal, Esophageal Spasm GERD, Cholecystitis, Pancreatitis, Zoster, this is not meant to be an all-inclusive list. Differential Abdominal Pain Men: Appendicitis, cholecystitis, diverticulosis, ischemic bowel, pancreatitis, hepa titis, UTI, gastroenteritis, AAA, incarcerated hernia, bowel obstruction, constipation, inflammatory bowel, hepatitis, peptic ulcer disease, splenic infarction, perforated viscus, testicular torsion, this is not meant to be an all-inclusive list EKG interpreted by me (3pts min.). @ -As above X-rays interpreted by me (1pt min.). @ -Chest and abdominal x-rays do not reveal acute abnormality CT interpreted by me (1pt min.). @ -None done U/S interpreted by me (1pt. min.). @ -None done What testing was considered but not performed or refused? (CT, X-rays, U/S, labs)? Why? @ -None What meds were considered but not given or refused? Why? @ -Considered heparin however recent abnormal CT scan. Patient will be admitted with consult Did you discuss the management of the patient with other professionals (professionals i.e. , PA, THERAPEUTIC RADIOLOGIST, lab, RT, psych nurse, marriage and family social worker, stoner hand, teacher, recreation officer, therapeutic case manager)? Give summary @ -Case was discussed with Dr. Luna who will admit covering Dr. Randall Was smoking cessation discussed for >3mins.? @ -No Was critical care preformed (if so, how long)? @ -No Were there social determinants of health that impacted care today? How? (Homeles sness, low income, unemployed, alcoholism, drug addiction, transportation, low edu. Level, literacy, decrease access to med. care, group home, rehab)? @ -No Was there de-escalation of care discussed even if they declined (Discuss DNR or withdrawal of care, Hospice)? DNR status @ -No What co-morbidities impacted this encounter? (DM, HTN, Smoking, COPD, CAD, Cancer, CVA, ARF, Chemo, Hep., AIDS, mental health diagnosis, sleep apnea, morbid obesity)? @ -None Was patient admitted / discharged? Hospital course, mention meds given and route, prescriptions, significant lab abnormalities, going to OR and other pertinent info. @ -Patient presents with fatigue and concern with abnormal troponin. Repeat troponin is similar. Patient will be admitted with cardiac consult. Also recent CT scan with abnormality and surgical consult will be placed. Patient was advised to see Dr. Escalona as an outpatient Undiagnosed new problem with uncertain prognosis? @ -No Drug Therapy requiring intensive monitoring for toxicity (Heparin, Nitro, Insulin, Cardizem)? @ -No Were any procedures done? @ -No Diagnosis/symptom? @ -Fatigue, indeterminate troponin Acute, or Chronic, or Acute on Chronic? @ -Acute, acute Uncomplicated (without systemic symptoms) or Complicated (systemic symptoms)? @ -with recent abnormal CT scan Side effects of treatment? @ -No Exacerbation, Progression, or Severe Exacerbation? @ -No Poses a threat to life or bodily function? How? (Chest pain, [place], SC, pneumonia, PE, COPD, DKA, ARF, appy, cholecystitis, CVA, Diverticulitis, Homicidal, Suicidal, threat to staff... and all critical care pts) @ -Threat to cardiac and bowel function - Lab Data Result diagrams: 07/04/24 13:26 07/04/24 13:26 Lab Results 07/04/24 07/04/24 07/04/24 Range/Units 13:26 13:26 13:26 WBC 11.2 H (3.8-10.6) k/uL RBC 4.72 (4.30-5.90) m/uL Hgb 14.5 (13.0-17.5) gm/dL Hct 43.1 (39.0-53.0) % MCV 91.4 (80.0-100.0) fL MCH 30.7 (25.0-35.0) pg MCHC 33.6 (31.0-37.0) g/dL RDW 13.1 (11.5-15.5) % Plt Count 352 (150-450) k/uL MPV 7.2 Neutrophils % 78 % Lymphocytes % 13 % Monocytes % 6 % Eosinophils % 1 % Basophils % 1 % Neutrophils # 8.7 H (1.3-7.7) k/uL Lymphocytes # 1.4 (1.0-4.8) k/uL Monocytes # 0.7 (0-1.0) k/uL Eosinophils # 0.2 (0-0.7) k/uL Basophils # 0.1 (0-0.2) k/uL PT 12.4 (10.0-12.5) sec INR 1.2 H (<1.2) APTT 29.9 (22.0-30.0) sec Sodium 134 L (137-145) mmol/L Potassium 4.0 (3.5-5.1) mmol/L Chloride 99 (98-107) mmol/L Carbon Dioxide 29 (22-30) mmol/L Anion Gap 6 mmol/L BUN 10 (9-20) mg/dL Creatinine 0.73 (0.66-1.25) mg/dL Est GFR (CKD-EPI)AfAm >90 (>60 ml/min/1.73 sqM) Est GFR (CKD-EPI)NonAf >90 (>60 ml/min/1.73 sqM) Glucose 101 H (74-99) mg/dL Calcium 8.9 (8.4-10.2) mg/dL Total Bilirubin 0.7 (0.2-1.3) mg/dL AST 35 (17-59) U/L ALT 27 (4-49) U/L Alkaline Phosphatase 78 (38-126) U/L Troponin I (0.000-0.034) ng/mL Total Protein 6.1 L (6.3-8.2) g/dL Albumin 3.6 (3.5-5.0) g/dL Amylase 35 (30-110) U/L Lipase 64 (23-300) U/L 07/04/24 Range/Units 13:26 WBC (3.8-10.6) k/uL RBC (4.30-5.90) m/uL Hgb (13.0-17.5) gm/dL Hct (39.0-53.0) % MCV (80.0-100.0) fL MCH (25.0-35.0) pg MCHC (31.0-37.0) g/dL RDW (11.5-15.5) % Plt Count (150-450) k/uL MPV Neutrophils % % Lymphocytes % % Monocytes % % Eosinophils % % Basophils % % Neutrophils # (1.3-7.7) k/uL Lymphocytes # (1.0-4.8) k/uL Monocytes # (0-1.0) k/uL Eosinophils # (0-0.7) k/uL Basophils # (0-0.2) k/uL PT (10.0-12.5) sec INR (<1.2) APTT (22.0-30.0) sec Sodium (137-145) mmol/L Potassium (3.5-5.1) mmol/L Chloride (98-107) mmol/L Carbon Dioxide (22-30) mmol/L Anion Gap mmol/L BUN (9-20) mg/dL Creatinine (0.66-1.25) mg/dL Est GFR (CKD-EPI)AfAm (>60 ml/min/1.73 sqM) Est GFR (CKD-EPI)NonAf (>60 ml/min/1.73 sqM) Glucose (74-99) mg/dL Calcium (8.4-10.2) mg/dL Total Bilirubin (0.2-1.3) mg/dL AST (17-59) U/L ALT (4-49) U/L Alkaline Phosphatase (38-126) U/L Troponin I 0.076 H* (0.000-0.034) ng/mL Total Protein (6.3-8.2) g/dL Albumin (3.5-5.0) g/dL Amylase (30-110) U/L Lipase (23-300) U/L Disposition Clinical Impression: Elevated troponin level Disposition: ADMITTED IP TO THIS HOSP Is patient prescribed a controlled substance at d/c from ED?: No Referrals: Rolly Randall MD [Primary Care Provider] - 1-2 days Time of Disposition: 15:21
[2024-07-04] MEDS: PANTOPRAZOLE 40 MG/10 ML VIAL IVP STA (13:28)
[2024-07-04] MEDS: SODIUM CHLORIDE 0.9% 1,000 ML IV STA (13:28)
[2024-07-04 13:37] LABS: Basophils # (A) 0.1 k/uL (0-0.2); Basophils % (A) 1 %; Eosinophils # (A) 0.2 k/uL (0-0.7); Eosinophils % (A) 1 %; HCT 43.1 % (39.0-53.0); HGB 14.5 gm/dL (13.0-17.5); Lymphocytes # (A) 1.4 k/uL (1.0-4.8); Lymphocytes % (A) 13 %; MCH 30.7 pg (25.0-35.0); MCHC 33.6 g/dL (31.0-37.0); MCV 91.4 fL (80.0-100.0); Mean Platelet Volume 7.2; Monocytes # (A) 0.7 k/uL (0-1.0); Monocytes % (A) 6 %; Neutrophils # (A) 8.7 k/uL (1.3-7.7); Neutrophils % (A) 78 %; Platelet Count 352 k/uL (150-450); RBC 4.72 m/uL (4.30-5.90); RDW 13.1 % (11.5-15.5); WBC 11.2 k/uL (3.8-10.6)
[2024-07-04 13:46] LABS: INR 1.2 (<1.2); Partial Thromboplastin Time 29.9 sec (22.0-30.0); Prothrombin Time 12.4 sec (10.0-12.5)
[2024-07-04 13:56] LABS: ALT 27 U/L (4-49); AST 35 U/L (17-59); African American GFR (CKD) >90 (>60 ml/min/1.73 sqM); Albumin 3.6 g/dL (3.5-5.0); Alkaline Phosphatase 78 U/L (38-126); Amylase 35 U/L (30-110); Anion Gap 6 mmol/L; Blood Urea Nitrogen 10 mg/dL (9-20); Calcium 8.9 mg/dL (8.4-10.2); Carbon Dioxide 29 mmol/L (22-30); Chloride 99 mmol/L (98-107); Glucose 101 mg/dL (74-99); Lipase 64 U/L (23-300); Non-African American GFR(CKD) >90 (>60 ml/min/1.73 sqM); Sodium 134 mmol/L (137-145); Total Bilirubin 0.7 mg/dL (0.2-1.3); Total Protein 6.1 g/dL (6.3-8.2)
--- NOTE | 2024-07-04 14:03 | XR ---
EXAMINATION TYPE: XR chest 2V DATE OF EXAM: 07/04/2024 COMPARISON: 02/05/21 HISTORY: Shortness of breath TECHNIQUE: Frontal and lateral views of the chest are obtained. FINDINGS: Scattered senescent parenchymal changes noted. Hyperinflation compatible with COPD. No evidence for infiltrate. No evidence for atelectasis. Heart size is stable. Mediastinal structures are stable and grossly unremarkable. No evidence for hilar prominence. Degenerative changes dorsal spine. IMPRESSION: 1. No evidence for acute pulmonary disease.
--- NOTE | 2024-07-04 14:04 | XR ---
EXAMINATION TYPE: XR abdomen 2V DATE OF EXAM: 07/04/2024 HISTORY: Pain. Technique: 3 views of the abdomen are submitted. Comparison: None. Findings: There is no convincing evidence of pneumoperitoneum. The Bowel gas pattern is nonspecific and nonobstructive. No sizable air-fluid levels are seen. No mass effects are noted. No renal calcifications are identified. IMPRESSION: 1. Nonspecific nonobstructive bowel gas pattern
[2024-07-04] MEDS ORDERED: HYDROmorphone 0.5 MG/0.5 ML SYRINGE IVP PRN (15:21)
[2024-07-04] MEDS ORDERED: NALOXONE 0.4 MG/ML 1 ML VIAL IV PRN (15:21)
[2024-07-04] MEDS ORDERED: FUROSEMIDE 40 MG TAB PO PRN (16:14)
--- NOTE | 2024-07-04 16:18 | P.HPIM ---
History of Present Illness H&P Date: 07/04/24 69 year old M with PMH of CAD, AFib on Xarelto, COPD, BPH, HTN presents to the ED for abnormal lab work. He reports melenotic stools and diarrhea (> 8 episodes/day) that started over Labor Day weekend. Symptoms were associated with periumbillical pain. Symptoms lasted for 4 days. 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 He was started on Cipro and Flagyl which improved his symptoms. His symptoms spontaneously returned today. reports fatigue and sleepiness which is out of character for him. He had lab work done today which resulted in a Troponin of 0.081 and was told to come to the ED. He denies any chest pain. In the ED he underwent extensive evaluation. BP 130/90, HR 76, T 97.4F, RR 16, 91% on RA. CBC, Coag panel, CMP significant for WBC 11.2, INR 1.2, Na 134, glu 101, total protein 6.1. Troponin 0.076, EKG sinus rhythm with PVCs and Q wave in V1 and V2. CXR negative. KUB non specific bowel gas pat tern. Patient is admitted for further workup and management. General: Nontoxic, no distress, appears at stated age Derm: Warm, dry Head: Atraumatic, normocephalic, symmetric Eyes: EOMI, no lid lag, anicteric sclera Mouth: No lip lesion, mucus membranes moist Cardiovascular: RRR. Normal S1 S2. No murmurs, rubs, gallops Lungs: Decreased BS BL, no accessory muscle use, 2L NC Abdominal: Soft, non distended, TTP periumbillical area and RLQ without rebound Ext: No gross muscle atrophy, no edema, no contractures Psych: Alert, oriented, appropriate affect Based on my assessment of this patient, this patient meets a high complexity level of care. Acute appendicitis: As seen on CT AP. Mild leukocytosis. Start Zosyn 3.375g IV TID. Does not meet sepsis criteria. NS at 50 cc/hr. Consult Surgery. Melena: Obtain stool occult blood. C-scope 2014 sigmoid diverticulosis. Protonix 40 mg IV BID. Repeat CBC tomorrow morning. Troponin elevation: Flat. Trend Trop/EKG to rule out ACS. Obtain Echo. Telemetry monitoring. Cardiology consult. Fatigue: Possibly related to above. Obtain TSH. CAD: Echo 2020 EF 50-55% with moderate concentric LVH, basal inferior LV hypokinesis. Hold ASA. Metoprolol 50 mg PO QD. Lipitor 40 mg PO QHS. AFib on Xarelto: Hold Xarelto. Metoprolol as above. COPD: Albuterol neb Q6H PRN SOB/wheezing. No in acute exacerbation. BPH: Flomax 0.4 mg PO QD. HTN: Imdur 30 mg PO QD. Amlodipine 10 mg PO QD. Metoprolol as above. CODE STATUS: FULL CODE DVT Prophylaxis: SCD GI Prophylaxis: Protonix IV Designated medical POA if patient is not able to make medical decisions for themselves: I have reviewed the following enterprise resource planning consultant notes: ED note I have reviewed the results of the following tests: As above. I have ordered the following tests: As above. I have discussed the care of this patient with the following independent historian: I have independently interpreted the following test below: CXR I have discussed the management of this patient with the following physician: Dr. Henry Past Medical History Past Medical History: Coronary Artery Disease (CAD), CVA/TIA, Hyperlipidemia, Hypertension, Myocardial Infarction ([place]) Additional Past Medical History / Comment(s): JUN 22. Last Myocardial Infarction Date:: UNKNOWN History of Any Multi-Drug Resistant Organisms: None Reported Past Surgical History: Tonsillectomy Additional Past Surgical History / Comment(s): ventral hernia repair Past Anesthesia/Blood Transfusion Reactions: No Reported Reaction Past Psychological History: No Psychological Hx Reported Smoking Status: Former smoker Past Alcohol Use History: None Reported Past Drug Use History: None Reported - Past Family History Mother Family Medical History: Deep Vein Thrombosis (DVT) Medications and Allergies Home Medications Medication Instructions Recorded Confirmed Type Losartan Potassium 100 mg PO DAILY 07/25/14 07/04/24 History Tamsulosin HCl 0.4 mg PO DAILY 02/23/15 07/04/24 History Ubidecarenone [Co Q-10] 100 mg PO DAILY 02/23/15 07/04/24 History Vitamin B Complex 1 cap PO DAILY 02/23/15 07/04/24 History Glucosamine Sulfate 500 mg PO DAILY 07/08/18 07/04/24 History Isosorbide Mononitrate [Isosorbide 30 mg PO DAILY 07/08/18 07/04/24 History Mononitrate ER] Albuterol Nebulized [Ventolin 2.5 mg INHALATION RT-Q6H PRN 02/05/21 07/04/24 History Nebulized] Furosemide [Lasix] 40 mg PO DAILY PRN 02/05/21 07/04/24 History amLODIPine [Norvasc] 10 mg PO DAILY 02/05/21 07/04/24 History Aspirin 81 mg PO DAILY #90 chewable 02/06/21 07/04/24 Rx Nitroglycerin Sl Tabs [Nitrostat] 0.4 mg SUBLINGUAL Q5M PRN #25 tab 02/06/21 07/04/24 Rx Atorvastatin Calcium [Lipitor] 40 mg PO HS 07/04/24 07/04/24 History Budesonide/Glycopyr/Formoterol 2 puff INHALATION RT-BID 07/04/24 07/04/24 History [Breztri Aerosphere Inhaler] Ciprofloxacin HCl [Cipro] 500 mg PO Q12HR 07/04/24 07/04/24 History Dapagliflozin Propanediol [Farxiga] 10 mg PO DAILY 07/04/24 07/04/24 History Latanoprost [Latanoprost 0.005%] 1 drop BOTH EYES HS 07/04/24 07/04/24 History Metoprolol Succinate (ER) [Toprol 50 mg PO DAILY 07/04/24 07/04/24 History Xl] Rivaroxaban [Xarelto] 20 mg PO DAILY 07/04/24 07/04/24 History hydrOXYzine HCL [Atarax] 25 mg PO HS 07/04/24 07/04/24 History metroNIDAZOLE [Flagyl] 500 mg PO TID 07/04/24 07/04/24 History Allergies Allergy/AdvReac Type Severity Reaction Status Date / Time naproxen sodium [From Aleve] Allergy Rash/Hives Verified 07/04/24 15:18 Physical Exam Vitals: Vital Signs Temp Pulse Resp BP Pulse Ox 07/04/24 14:46 65 16 124/87 93 L 07/04/24 12:37 97.4 F L 76 16 130/90 91 L Intake and Output 07/04/24 07/04/24 07/04/24 06:59 14:59 22:59 Other: Weight 77.111 kg Results CBC & Chem 7: 07/04/24 13:26 07/04/24 13:26 Labs: Abnormal Lab Results - Last 24 Hours (Table) 07/04/24 07/04/24 07/04/24 Range/Units 13:26 13:26 13:26 WBC 11.2 H (3.8-10.6) k/uL Neutrophils # 8.7 H (1.3-7.7) k/uL INR 1.2 H (<1.2) Sodium 134 L (137-145) mmol/L Glucose 101 H (74-99) mg/dL Troponin I (0.000-0.034) ng/mL Total Protein 6.1 L (6.3-8.2) g/dL 07/04/24 Range/Units 13:26 WBC (3.8-10.6) k/uL Neutrophils # (1.3-7.7) k/uL INR (<1.2) Sodium (137-145) mmol/L Glucose (74-99) mg/dL Troponin I 0.076 H* (0.000-0.034) ng/mL Total Protein (6.3-8.2) g/dL
[2024-07-04] MEDS: PIPERACILLIN-TAZOBACTAM 3.375 GM in SODIUM CHLORIDE 0.9% 100 ML IVPB SCH (17:08)
[2024-07-04] MEDS: SODIUM CHLORIDE 0.9% 1,000 ML IV SCH (17:14)
[2024-07-04] MEDS: ATORVASTATIN 40 MG TAB PO SCH (21:17)
[2024-07-04] MEDS: PANTOPRAZOLE 40 MG/10 ML VIAL IVP SCH (21:18)
[2024-07-04] MEDS: ALBUTEROL NEBULIZED 2.5 MG/3 ML INHALATION PRN (22:12)
[2024-07-04] MEDS: LATANOPROST 0.005% OPHTH DROPS 2.5 ML BTL BOTH EYES SCH (22:21)
[2024-07-05] MEDS: DILTIAZEM 125 MG in SODIUM CHLORIDE 0.9% 100 ML IV SCH (02:08)
[2024-07-05] MEDS: DILTIAZEM DRIP BOLUS FROM BAG 1 MG SOLN IV ONE (02:08)
[2024-07-05 05:24] LABS: Basophils # (A) 0.1 k/uL (0-0.2); Basophils % (A) 1 %; Eosinophils # (A) 0.2 k/uL (0-0.7); Eosinophils % (A) 1 %; HCT 46.7 % (39.0-53.0); HGB 15.6 gm/dL (13.0-17.5); Lymphocytes # (A) 1.2 k/uL (1.0-4.8); Lymphocytes % (A) 10 %; MCH 30.7 pg (25.0-35.0); MCHC 33.4 g/dL (31.0-37.0); MCV 91.8 fL (80.0-100.0); Mean Platelet Volume 7.4; Monocytes # (A) 0.7 k/uL (0-1.0); Monocytes % (A) 6 %; Neutrophils # (A) 9.2 k/uL (1.3-7.7); Neutrophils % (A) 80 %; Platelet Count 356 k/uL (150-450); RBC 5.08 m/uL (4.30-5.90); RDW 13.4 % (11.5-15.5); WBC 11.4 k/uL (3.8-10.6)
[2024-07-05 05:41] LABS: ALT 25 U/L (4-49); AST 29 U/L (17-59); African American GFR (CKD) >90 (>60 ml/min/1.73 sqM); Albumin 3.4 g/dL (3.5-5.0); Alkaline Phosphatase 82 U/L (38-126); Anion Gap 8 mmol/L; Blood Urea Nitrogen 6 mg/dL (9-20); Calcium 8.7 mg/dL (8.4-10.2); Carbon Dioxide 28 mmol/L (22-30); Chloride 101 mmol/L (98-107); Glucose 86 mg/dL (74-99); Non-African American GFR(CKD) >90 (>60 ml/min/1.73 sqM); Potassium 3.8 mmol/L (3.5-5.1); Sodium 137 mmol/L (137-145); Total Bilirubin 0.8 mg/dL (0.2-1.3); Total Protein 5.7 g/dL (6.3-8.2)
[2024-07-05] MEDS ORDERED: PANTOPRAZOLE 40 MG/10 ML VIAL IV SCH (09:00)
[2024-07-05] MEDS: DEXTROSE 5% IN WATER 100 ML with AMIODARONE 150 MG IV ONE (09:13)
[2024-07-05] MEDS: AMIODARONE 360 MG in DEXTROSE 5% IN WATER 200 ML IV ONE (09:30)
[2024-07-05] MEDS: DAPAGLIFLOZIN PROPANEDIOL 10 MG TABLET PO SCH (10:06)
[2024-07-05] MEDS: amLODIPine 10 MG TAB PO SCH (10:06)
[2024-07-05] MEDS: ISOSORBIDE MONONITRATE ER 30 MG TAB.ER.24H PO SCH (10:06)
[2024-07-05] MEDS: TAMSULOSIN 0.4 MG CAP.ER.24H PO SCH (10:07)
[2024-07-05] MEDS: METOPROLOL SUCCINATE (ER) 50 MG TAB.ER.24H PO SCH (10:07)
--- NOTE | 2024-07-05 10:33 | CA ---
Transthoracic Echo Report Name: Sriram Nguyen Age: 69 Gender: M : 1955 Exam Date: 07/04/2024 18:23 Exam Location: [facility] Ht (in): 64 Wt (lb): 170 Ordering Physician: Sena Mistry MD Attending/Referring Phys: Housekeeping Laundry Worker Tamy Davis RDCS Procedure CPT: Indications: trop Cardiac Hx: Technical Quality: Technically difficult study Contrast 1: Definity Total Dose (mL): 2 Contrast 2: Total Dose (mL): MEASUREMENTS (Male / Female) Normal Values 2D ECHO LV Diastolic Diameter PLAX 5.8 cm 4.2 - 5.9 / 3.9 - 5.3 cm LV Systolic Diameter PLAX 4.6 cm IVS Diastolic Thickness 0.8 cm 0.6 - 1.0 / 0.6 - 0.9 cm LVPW Diastolic Thickness 0.9 cm 0.6 - 1.0 / 0.6 - 0.9 cm LV Relative Wall Thickness 0.3 LVOT Diameter 2.2 cm LV Diastolic Volume MOD BP 162.8 cm??? 67 - 155 / 56 - 104 cm??? LV Systolic Volume MOD BP 93.0 cm??? 22 - 58 / 19 - 49 cm??? LV Ejection Fraction MOD BP 42.9 % >= 55 % LV Cardiac Index MOD BP 2587.9 cm???/min???m??? LV Diastolic Volume MOD 4C 168.4 cm??? LV Systolic Volume MOD 4C 92.4 cm??? LV Ejection Fraction MOD 4C 45.1 % LV Cardiac Index MOD 4C 2814.8 cm???/min???m??? LV Diastolic Length 4C 8.2 cm LV Systolic Length 4C 7.2 cm LV Diastolic Volume MOD 2C 157.1 cm??? LV Systolic Volume MOD 2C 91.8 cm??? LV Ejection Fraction MOD 2C 41.6 % LV Cardiac Index MOD 2C 2419.5 cm???/min???m??? LV Diastolic Length 2C 8.2 cm LV Systolic Length 2C 7.4 cm LA Volume 73.6 cm??? 18 - 58 / 22 - 52 cm??? LA Volume Index 38.9 cm???/m??? 16 - 28 cm???/m??? DOPPLER AV Peak Velocity 136.5 cm/s AV Peak Gradient 7.5 mmHg AV Mean Velocity 97.6 cm/s AV Mean Gradient 4.2 mmHg AV Velocity Time Integral 28.2 cm LVOT Peak Velocity 88.1 cm/s LVOT Peak Gradient 3.1 mmHg LVOT Velocity Time Integral 18.9 cm LVOT Stroke Volume 74.8 cm??? LVOT Stroke Volume Index 41.0 ml/m??? LVOT Cardiac Index 2771.5 cm???/min???m??? AV Area Cont Eq vti 2.7 cm??? AV Area Cont Eq pk 2.6 cm??? MV Area PHT 3.8 cm??? Mitral E Point Velocity 48.3 cm/s Mitral A Point Velocity 59.9 cm/s Mitral E to A Ratio 0.8 MV Deceleration Time 198.6 ms FINDINGS Left Ventricle Left ventricular ejection fraction is estimated at -40 %. Mildly increased left ventricular diastolic volume. . Mildly decreased left ventricular ejection fraction. Right Ventricle Moderate to severe ventricular dilatation with mildly reduced function. Unable to estimate the right ventricular systolic pressure. Right Atrium Severe right atrial dilatation. Left Atrium Moderately increased left atrial volume. Mitral Valve Structurally normal mitral valve. No mitral stenosis, regurgitation or prolapse. Aortic Valve Trileaflet aortic valve. No aortic stenosis. Trace aortic regurgitation. Tricuspid Valve Structurally normal tricuspid valve. No tricuspid stenosis. No tricuspid regurgitation. Pulmonic Valve Pulmonic valve not well visualized. No pulmonic stenosis. No pulmonic regurgitation. Pericardium No pericardial effusion. Aorta Aortic annulus normal. CONCLUSIONS Moderate LV systolic dysfunction with a dilated left ventricle Dilated right ventricle Technically suboptimal study Previewed by: Dr. Brandon Barry MD (Electronically Signed) Final Date: 05 July 2024 10:32
--- NOTE | 2024-07-05 12:19 | P.CRDCN ---
History of Present Illness Consult date: 07/05/24 Consult reason: other (Elevated troponin) History of present illness: HISTORY OF PRESENT ILLNESS: This is a 61-year-old male with past medical history of CAD, A-fib on Xarelto, COPD, hypertension, and cardiomyopathy. Patient follows in the office with Dr. Mcneil. We have been asked to see the patient in consultation for chest pain and elevated troponins. Patient was examined at the bedside in the emergency room. Patient states he has been having melanotic stools and diarrhea that started over Labor Day weekend. PCP had ordered a CTAP which showed prominent appendix thickness with mild inflammatory changes concerning for appendicitis and was started on Cipro and Flagyl, which improved his symptoms but then they returned. Patient had blood work done yesterday morning and the doctor called and told him to come in due to elevated troponins. Patient denies chest pain, shortness of breath, fevers or chills at this time DIAGNOSTICS: - EKG #1: Nonspecific changes #2: ST changes inferior leads, tachycardia, ST elevation in aVR, ST depressions #3: Atrial flutter - Chest xray shows no acute process - Laboratory data: WBCs 11.4. Troponin x 3: 0.06, 0.073, 0.089. - Current home cardiac medications include Farxiga 10 mg daily, Xarelto 20 mg daily, atorvastatin 40 mg daily, Toprol XL 50 mg daily, aspirin 81 mg daily, losartan 100 mg daily, isosorbide mononitrate 30 mg daily, Lasix 40 mg daily as needed, amlodipine 10 mg daily Most recent echocardiogram July 04, 2024 showed LVEF estimated 40%, moderate LV systolic dysfunction with dilated left ventricle, dilated right ventricle REVIEW OF SYSTEMS: At the time of my exam: CONSTITUTIONAL: Denies fever or chills. HEENT: Denies blurred vision, vision changes, or eye pain. Denies hemoptysis CARDIOVASCULAR: Denies chest pain. Denies orthopnea. Denies PND. Denies p alpitations RESPIRATORY: Endorses shortness of breath, but states improved. GASTROINTESTINAL: Endorses abdominal pain. Denies nausea or vomiting. HEMATOLOGIC: Denies bleeding disorders. GENITOURINARY: Denies any blood in urine. SKIN: Denies pruitis. Denies rash. PHYSICAL EXAM: VITAL SIGNS: Reviewed. Afebrile. Normotensive. Tachycardic 130s, satting well on 2 L nasal cannula GENERAL: Well-developed in no acute distress. HEENT: Head is normocephalic. Pupils are equal, round. Sclerae anicteric. Mucous membranes of the mouth are moist. Neck supple. No JVD or thyromegaly LUNGS: Respirations even and unlabored. Some crackles bilaterally. HEART: Irregular rate and rhythm. S1 and S2 heard. ABDOMEN: Soft, nondistended, tender to palpation periumbilical area and RLQ without rebound EXTREMITIES: Normal range of motion. No clubbing or cyanosis. Peripheral pulses intact. NEUROLOGIC: Awake and alert. Oriented x 3. ASSESSMENT: Acute appendicitis Troponin elevation: Flat Atrial flutter History of CAD History of A-fib Hypertension Hyperlipidemia Tobacco use PLAN: Surgery on board Given IV amiodarone bolus then per protocol Continue home cardiac meds except Xarelto which was held yesterday due to possible surgery Patient is not currently on any anticoagulation, nurse instructed to start IV heparin if no plans for surgical intervention Patient is cleared from cardiac standpoint for surgical intervention regarding appendicitis. Further recommendations to follow based upon clinical course Thank you kindly for this consultation. Past Medical History Past Medical History: Coronary Artery Disease (CAD), CVA/TIA, Hyperlipidemia, Hypertension, Myocardial Infarction ([place]) Additional Past Medical History / Comment(s): JUN 22. Last Myocardial Infarction Date:: UNKNOWN History of Any Multi-Drug Resistant Organisms: None Reported Past Surgical History: Tonsillectomy Additional Past Surgical History / Comment(s): ventral hernia repair Past Anesthesia/Blood Transfusion Reactions: No Reported Reaction Past Psychological History: No Psychological Hx Reported Smoking Status: Former smoker Past Alcohol Use History: None Reported Past Drug Use History: None Reported - Past Family History Mother Family Medical History: Deep Vein Thrombosis (DVT) Medications and Allergies Home Medications Medication Instructions Recorded Confirmed Type Losartan Potassium 100 mg PO DAILY 07/25/14 07/04/24 History Tamsulosin HCl 0.4 mg PO DAILY 02/23/15 07/04/24 History Ubidecarenone [Co Q-10] 100 mg PO DAILY 02/23/15 07/04/24 History Vitamin B Complex 1 cap PO DAILY 02/23/15 07/04/24 History Glucosamine Sulfate 500 mg PO DAILY 07/08/18 07/04/24 History Isosorbide Mononitrate [Isosorbide 30 mg PO DAILY 07/08/18 07/04/24 History Mononitrate ER] Albuterol Nebulized [Ventolin 2.5 mg INHALATION RT-Q6H PRN 02/05/21 07/04/24 History Nebulized] Furosemide [Lasix] 40 mg PO DAILY PRN 02/05/21 07/04/24 History amLODIPine [Norvasc] 10 mg PO DAILY 02/05/21 07/04/24 History Aspirin 81 mg PO DAILY #90 chewable 02/06/21 07/04/24 Rx Nitroglycerin Sl Tabs [Nitrostat] 0.4 mg SUBLINGUAL Q5M PRN #25 tab 02/06/21 07/04/24 Rx Atorvastatin Calcium [Lipitor] 40 mg PO HS 07/04/24 07/04/24 History Budesonide/Glycopyr/Formoterol 2 puff INHALATION RT-BID 07/04/24 07/04/24 History [Breztri Aerosphere Inhaler] Ciprofloxacin HCl [Cipro] 500 mg PO Q12HR 07/04/24 07/04/24 History Dapagliflozin Propanediol [Farxiga] 10 mg PO DAILY 07/04/24 07/04/24 History Latanoprost [Latanoprost 0.005%] 1 drop BOTH EYES HS 07/04/24 07/04/24 History Metoprolol Succinate (ER) [Toprol 50 mg PO DAILY 07/04/24 07/04/24 History Xl] Rivaroxaban [Xarelto] 20 mg PO DAILY 07/04/24 07/04/24 History hydrOXYzine HCL [Atarax] 25 mg PO HS 07/04/24 07/04/24 History metroNIDAZOLE [Flagyl] 500 mg PO TID 07/04/24 07/04/24 History Allergies Allergy/AdvReac Type Severity Reaction Status Date / Time naproxen sodium [From Aleve] Allergy Rash/Hives Verified 07/04/24 15:18 Physical Exam Vitals: Vital Signs Temp Pulse Pulse Resp BP Pulse Ox 07/05/24 10:39 97.9 F 129 H 17 105/88 96 07/05/24 10:04 130 H 07/05/24 08:20 97.0 F L 135 H 22 112/82 94 L 07/05/24 08:14 134 H 07/05/24 08:05 95 07/05/24 08:03 134 H 07/05/24 06:10 137 H 18 97/72 93 L 07/05/24 03:15 134 H 17 124/81 07/05/24 02:00 135 H 18 111/90 93 L 07/05/24 01:00 97.5 F L 131 H 16 111/90 96 07/05/24 00:10 87 18 112/90 93 L 07/04/24 22:23 76 07/04/24 22:13 72 07/04/24 21:21 71 18 90 L 07/04/24 19:37 70 18 139/93 91 L 07/04/24 18:30 61 17 142/99 90 L 07/04/24 16:00 70 17 129/90 92 L 07/04/24 14:46 65 16 124/87 93 L 07/04/24 12:50 59 L 07/04/24 12:37 97.4 F L 76 16 130/90 91 L Intake and Output 07/04/24 07/05/24 07/05/24 22:59 06:59 14:59 Intake Total 5.5 Balance 5.5 Intake: Intake, IV Titration 5.5 Amount Diltiazem 125 mg In 5.5 Sodium Chloride 0.9% 100 ml @ 5 MG/HR 5 mls/hr IV .Q24H [facility] Rx#:[id number] Results 07/05/24 04:51 07/05/24 04:51 Cardiac Enzymes 07/04/24 07/04/24 07/04/24 Range/Units 13:26 13:26 16:08 AST 35 (17-59) U/L Troponin I 0.076 H* 0.073 H* (0.000-0.034) ng/mL 07/04/24 07/05/24 Range/Units 19:12 04:51 AST 29 (17-59) U/L Troponin I 0.089 H* (0.000-0.034) ng/mL Coagulation 07/04/24 Range/Units 13:26 PT 12.4 (10.0-12.5) sec APTT 29.9 (22.0-30.0) sec CBC 07/04/24 07/05/24 Range/Units 13:26 04:51 WBC 11.2 H 11.4 H (3.8-10.6) k/uL RBC 4.72 5.08 (4.30-5.90) m/uL Hgb 14.5 15.6 (13.0-17.5) gm/dL Hct 43.1 46.7 (39.0-53.0) % Plt Count 352 356 (150-450) k/uL Comprehensive Metabolic Panel 07/04/24 07/05/24 Range/Units 13:26 04:51 Sodium 134 L 137 (137-145) mmol/L Potassium 4.0 3.8 (3.5-5.1) mmol/L Chloride 99 101 (98-107) mmol/L Carbon Dioxide 29 28 (22-30) mmol/L BUN 10 6 L (9-20) mg/dL Creatinine 0.73 0.66 (0.66-1.25) mg/dL Glucose 101 H 86 (74-99) mg/dL Calcium 8.9 8.7 (8.4-10.2) mg/dL AST 35 29 (17-59) U/L ALT 27 25 (4-49) U/L Alkaline Phosphatase 78 82 (38-126) U/L Total Protein 6.1 L 5.7 L (6.3-8.2) g/dL Albumin 3.6 3.4 L (3.5-5.0) g/dL Current Medications Generic Name Dose Route Start Last Admin Trade Name Freq PRN Reason Stop Dose Admin Albuterol Sulfate 2.5 mg 07/04/24 16:14 07/05/24 08:02 Albuterol Nebulized 2.5 Mg/3 Ml INHALATION 2.5 mg RT-Q6H PRN Administration Shortness Of Breath Amlodipine Besylate 10 mg 07/05/24 09:00 07/05/24 10:06 Amlodipine 10 Mg Tab PO Not Given DAILY [facility] Atorvastatin Calcium 40 mg 07/04/24 21:00 07/04/24 21:17 Atorvastatin 40 Mg Tab PO 40 mg HS [facility] Administration Dapagliflozin 10 mg 07/05/24 09:00 07/05/24 10:06 Dapagliflozin Propanediol 10 Mg Tablet PO Not Given DAILY [facility] Furosemide 40 mg 07/04/24 16:14 Furosemide 40 Mg Tab PO DAILY PRN Edema Hydromorphone HCl 0.5 mg 07/04/24 15:21 Hydromorphone 0.5 Mg/0.5 Ml Syringe IVP Q3HR PRN Moderate Pain (Scale 4 to 6) Piperacillin Sod/Tazobactam 100 mls @ 25 mls/hr 07/04/24 16:00 07/05/24 08:22 Sod 3.375 gm/ Sodium Chloride IVPB 25 mls/hr Q8HR [facility] Administration Protocol Diltiazem HCl 125 mg/ Sodium 125 mls @ 5 mls/hr 07/05/24 02:00 07/05/24 03:14 Chloride IV 10 mg/hr .Q24H [facility] 10 mls/hr Infusion 5 MG/HR Amiodarone HCl 360 mg/ 200 mls @ 33.333 mls/hr 07/05/24 08:17 07/05/24 09:30 Dextrose/Water IV 07/05/24 14:16 1 mg/min .Q6H ONE 33.333 mls/hr Administration Protocol 1 MG/MIN Amiodarone HCl 450 mg/ 250 mls @ 16.667 mls/hr 07/05/24 14:30 Dextrose/Water IV 07/06/24 08:29 .Q15H [facility] Protocol 0.5 MG/MIN Isosorbide Mononitrate 30 mg 07/05/24 09:00 07/05/24 10:06 Isosorbide Mononitrate Er 30 Mg Tab.Er.24h PO Not Given DAILY [facility] Latanoprost 1 drops 07/04/24 21:00 07/04/24 22:21 Latanoprost 0.005% Ophth Drops 2.5 Ml Btl BOTH EYES 1 drops HS [facility] Administration Metoprolol Succinate 50 mg 07/05/24 09:00 07/05/24 10:07 Metoprolol Succinate (Er) 50 Mg Tab.Er.24h PO Not Given DAILY [facility] Naloxone HCl 0.2 mg 07/04/24 15:21 Naloxone 0.4 Mg/Ml 1 Ml Vial IV Q2M PRN Opioid Reversal Pantoprazole Sodium 40 mg 07/04/24 21:00 07/05/24 08:36 Pantoprazole 40 Mg/10 Ml Vial IVP 40 mg BID [facility] Administration Tamsulosin HCl 0.4 mg 07/05/24 09:00 07/05/24 10:07 Tamsulosin 0.4 Mg Cap.Er.24h PO Not Given DAILY [facility] Intake and Output 07/04/24 07/05/24 07/05/24 22:59 06:59 14:59 Intake Total 5.5 Balance 5.5 Intake: Intake, IV Titration 5.5 Amount Diltiazem 125 mg In 5.5 Sodium Chloride 0.9% 100 ml @ 5 MG/HR 5 mls/hr IV .Q24H [facility] Rx#:[id number] 07/05/24 04:51 07/05/24 04:51
--- NOTE | 2024-07-05 13:43 | CT ---
EXAMINATION TYPE: CT abdomen pelvis w con CT DLP: 838.7 mGycm, Automated exposure control for dose reduction was used. DATE OF EXAM: 07/05/2024 1:14 PM COMPARISON: 07/01/2024 CLINICAL INDICATION: Male, 69 years old with history of lower abdominal pain; rlq pain TECHNIQUE: Axial CT abdomen pelvis w con;Sagittal and coronal reformats were created on a separate w orkstation. Contrast used:100 ml mL of Isovue 300 with IV Contrast, (none if empty) Oral contrast used: without Oral Contrast (none if empty) FINDINGS: LOWER CHEST: Unremarkable ABDOMEN LIVER: Unremarkable GALLBLADDER AND BILE DUCTS: Unremarkable. PANCREAS: Unremarkable. SPLEEN: Unremarkable. ADRENAL GLANDS: Unremarkable. KIDNEYS AND URETERS: No evidence of hydronephrosis or renal calculus. The ureters are unremarkable. P robable right renal cyst. PELVIS BLADDER: Unremarkable REPRODUCTIVE: Unremarkable. ABDOMEN & PELVIS STOMACH AND BOWEL: No evidence of bowel obstruction. Scattered colonic diverticula. The appendix agai n is visualized and has mild fat stranding changes around it measures at the upper limits of normal s lightly enlarged for thickness at 9 mm. No organizing fluid collection. There are multiple stones in the right lower quadrant also present. PERITONEUM/RETROPERITONEUM: No evidence of pneumoperitoneum or free fluid. 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 Se levar atherosclerosis of the arterial vasculature. Dilation of the infrarenal abdominal aorta measurin g up to 4.5 cm. MUSCULOSKELETAL: No acute osseous abnormalities LYMPH NODES: No gross evidence for lymphadenopathy. SOFT TISSUE/ABDOMINAL WALL: Unremarkable IMPRESSION: 1. The appendix remains prominent with mild inflammation changes and mild dilation. 2. Colonic diverticulosis. No definitive evidence for diverticulitis. 3. No obstructive uropathy or renal calculus. 4. Infrarenal abdominal aortic aneurysm measuring up to 4.5 cm. 5. 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
--- NOTE | 2024-07-05 15:37 | P.GSCN ---
History of Present Illness Consult date: 07/05/24 History of present illness: 69-year-old male presented to the emergency department after lab work showed increased troponin level. He does state that over the past week since weekend he has had dark-colored stool along with loose stool. He states he had minimal abdominal pain. He was sent as an outpatient for a CT scan of the abdomen and pelvis on 07/01/2024 with finding of dilated appendix with inflammatory surrounding changes and to correlate for appendicitis. He states that he was placed on oral antibiotics and has been taking them since that time. He currently denies any abdominal pain. He denies any nausea or vomiting. He states that his bowel function is somewhat improved. Is somewhat improved. Denies nausea or vomiting. No other complaints at this time. He is on anticoagulation. Review of Systems All systems: negative Past Medical History Past Medical History: Coronary Artery Disease (CAD), CVA/TIA, Hyperlipidemia, Hypertension, Myocardial Infarction ([place]) Additional Past Medical History / Comment(s): JUN 22. Last Myocardial Infarction Date:: UNKNOWN History of Any Multi-Drug Resistant Organisms: None Reported Past Surgical History: Tonsillectomy Additional Past Surgical History / Comment(s): ventral hernia repair Past Anesthesia/Blood Transfusion Reactions: No Reported Reaction Past Psychological History: No Psychological Hx Reported Smoking Status: Former smoker Past Alcohol Use History: None Reported Past Drug Use History: None Reported - Past Family History Mother Family Medical History: Deep Vein Thrombosis (DVT) Medications and Allergies Home Medications Medication Instructions Recorded Confirmed Type Losartan Potassium 100 mg PO DAILY 07/25/14 07/04/24 History Tamsulosin HCl 0.4 mg PO DAILY 02/23/15 07/04/24 History Ubidecarenone [Co Q-10] 100 mg PO DAILY 02/23/15 07/04/24 History Vitamin B Complex 1 cap PO DAILY 02/23/15 07/04/24 History Glucosamine Sulfate 500 mg PO DAILY 07/08/18 07/04/24 History Isosorbide Mononitrate [Isosorbide 30 mg PO DAILY 07/08/18 07/04/24 History Mononitrate ER] Albuterol Nebulized [Ventolin 2.5 mg INHALATION RT-Q6H PRN 02/05/21 07/04/24 History Nebulized] Furosemide [Lasix] 40 mg PO DAILY PRN 02/05/21 07/04/24 History amLODIPine [Norvasc] 10 mg PO DAILY 02/05/21 07/04/24 History Aspirin 81 mg PO DAILY #90 chewable 02/06/21 07/04/24 Rx Nitroglycerin Sl Tabs [Nitrostat] 0.4 mg SUBLINGUAL Q5M PRN #25 tab 02/06/21 07/04/24 Rx Atorvastatin Calcium [Lipitor] 40 mg PO HS 07/04/24 07/04/24 History Budesonide/Glycopyr/Formoterol 2 puff INHALATION RT-BID 07/04/24 07/04/24 History [Breztri Aerosphere Inhaler] Ciprofloxacin HCl [Cipro] 500 mg PO Q12HR 07/04/24 07/04/24 History Dapagliflozin Propanediol [Farxiga] 10 mg PO DAILY 07/04/24 07/04/24 History Latanoprost [Latanoprost 0.005%] 1 drop BOTH EYES HS 07/04/24 07/04/24 History Metoprolol Succinate (ER) [Toprol 50 mg PO DAILY 07/04/24 07/04/24 History Xl] Rivaroxaban [Xarelto] 20 mg PO DAILY 07/04/24 07/04/24 History hydrOXYzine HCL [Atarax] 25 mg PO HS 07/04/24 07/04/24 History metroNIDAZOLE [Flagyl] 500 mg PO TID 07/04/24 07/04/24 History Allergies Allergy/AdvReac Type Severity Reaction Status Date / Time naproxen sodium [From Aleve] Allergy Rash/Hives Verified 07/04/24 15:18 Surgical - Exam Osteopathic Statement: *. No significant issues noted on an osteopathic structural exam other than those noted in the History and Physical/Consult. Vital Signs Temp Pulse Resp BP Pulse Ox 97.4 F L 76 16 130/90 91 L 07/04/24 12:37 07/04/24 12:37 07/04/24 12:37 07/04/24 12:37 07/04/24 12:37 - General well nourished, no distress - Eyes normal ocular movement - ENT no hearing loss - Neck trachea midline - Respiratory normal respiratory effort - Abdomen Soft, nontender, nondistended, no rebound, no guarding. - Neurologic normal coordination, normal sensation - Psychiatric oriented to time, oriented to person, oriented to place Results - Labs 07/05/24 04:51 07/05/24 04:51 Abnormal Lab Results - Last 24 Hours (Table) 07/04/24 07/04/24 07/05/24 Range/Units 16:08 19:12 04:51 WBC 11.4 H (3.8-10.6) k/uL Neutrophils # 9.2 H (1.3-7.7) k/uL BUN (9-20) mg/dL Troponin I 0.073 H* 0.089 H* (0.000-0.034) ng/mL Total Protein (6.3-8.2) g/dL Albumin (3.5-5.0) g/dL 07/05/24 Range/Units 04:51 WBC (3.8-10.6) k/uL Neutrophils # (1.3-7.7) k/uL BUN 6 L (9-20) mg/dL Troponin I (0.000-0.034) ng/mL Total Protein 5.7 L (6.3-8.2) g/dL Albumin 3.4 L (3.5-5.0) g/dL Diabetes panel 07/05/24 Range/Units 04:51 Sodium 137 (137-145) mmol/L Potassium 3.8 (3.5-5.1) mmol/L Chloride 101 (98-107) mmol/L Carbon Dioxide 28 (22-30) mmol/L BUN 6 L (9-20) mg/dL Creatinine 0.66 (0.66-1.25) mg/dL Glucose 86 (74-99) mg/dL Calcium 8.7 (8.4-10.2) mg/dL AST 29 (17-59) U/L ALT 25 (4-49) U/L Alkaline Phosphatase 82 (38-126) U/L Total Protein 5.7 L (6.3-8.2) g/dL Albumin 3.4 L (3.5-5.0) g/dL Thyroid panel 07/05/24 Range/Units 04:51 TSH 1.540 (0.465-4.680) mIU/L Calcium panel 07/05/24 Range/Units 04:51 Calcium 8.7 (8.4-10.2) mg/dL Albumin 3.4 L (3.5-5.0) g/dL Pituitary panel 07/05/24 Range/Units 04:51 Sodium 137 (137-145) mmol/L Potassium 3.8 (3.5-5.1) mmol/L Chloride 101 (98-107) mmol/L Carbon Dioxide 28 (22-30) mmol/L BUN 6 L (9-20) mg/dL Creatinine 0.66 (0.66-1.25) mg/dL Glucose 86 (74-99) mg/dL Calcium 8.7 (8.4-10.2) mg/dL TSH 1.540 (0.465-4.680) mIU/L Adrenal panel 07/05/24 Range/Units 04:51 Sodium 137 (137-145) mmol/L Potassium 3.8 (3.5-5.1) mmol/L Chloride 101 (98-107) mmol/L Carbon Dioxide 28 (22-30) mmol/L BUN 6 L (9-20) mg/dL Creatinine 0.66 (0.66-1.25) mg/dL Glucose 86 (74-99) mg/dL Calcium 8.7 (8.4-10.2) mg/dL Total Bilirubin 0.8 (0.2-1.3) mg/dL AST 29 (17-59) U/L ALT 25 (4-49) U/L Alkaline Phosphatase 82 (38-126) U/L Total Protein 5.7 L (6.3-8.2) g/dL Albumin 3.4 L (3.5-5.0) g/dL Assessment and Plan Plan: 69-year-old male with concern for appendicitis that was diagnosed on CT on 07/01/2024. Since that time, he has been on oral antibiotics and states that he has no abdominal pain. Currently, his chief complaint is elevated troponin level. Cardiology is evaluating the patient. I did order repeat CT of the abdomen and pelvis with similar finding from previous CT 4 days ago with dilated appendix and minimal fat stranding around the appendix. He has been on IV antibiotics since his admission. I discussed the case in depth with the patient and the patient's . As he is not having any significant symptoms of appendicitis and since the appendicitis has been diagnosed via imaging 4 days ago without any progression since, it is reasonable to continue antibiotics as the patient is not eager to have surgical intervention without any symptoms. We will continue antibiotics at this time and have further discussions based on his clinical progress.
[2024-07-05] MEDS: AMIODARONE 450 MG in DEXTROSE 5% IN WATER 250 ML IV SCH (15:52)
[2024-07-05] MEDS: HEPARIN SOD,PORK IN 0.45% NACL 25,000 UNIT in 0.45% NACL 1 250ML.BAG IV SCH (17:25)
[2024-07-05] MEDS: HEPARIN SODIUM 1,000 UN/ML (10ML VL) IV PRN (17:26)
--- NOTE | 2024-07-05 17:46 | P.PN ---
Subjective Progress Note Date: 07/05/24 Subjective: Patient seen and examined at the bedside. No acute events overnight. Patient is complaining of mild periumbilical pain. Denies nausea, vomiting, fever, chills, shortness of breath, chest pain. All Systems reviewed and pertinent positives and negatives noted in HPI, all other symptoms are negative Objective: Vital signs reviewed. General: non toxic, no distress, appears at stated age, overweight Derm: no unusual rashes/lesions, warm Head: atraumatic, normocephalic, symmetric Eyes: EOMI, no lid lag, anicteric sclera, pupils equal round reactive to light ENT: Nose and ears atraumatic Neck: No cervical lymphadenopathy, trachea midline, supple Mouth: no lip lesion, mucus membranes moist Cardiovascular: S1S2 irregular, no murmur, positive dorsalis pedis pulse bilateral, no edema Lungs: Decreased breath sounds bilaterally, no rhonchi, no rales, no accessory muscle use Abdominal: soft, nontender to palpation, no guarding Ext: muscle strength 5 out of 5 in all 4 extremities grossly, no gross muscle atrophy, no contractures, Neuro: CN II-XI grossly intact, no gross focal neuro deficits Psych: Alert, oriented, appropriate affect Data reviewed today: Labs: WBC 11.4, hemoglobin 15.6, MCV 91.8, platelet count 356, sodium 137, potassium 3.8, BUN 6, creatinine 0.66. Images: CT abdomen and pelvis shows mildly inflamed appendix, colonic diverticulosis, infrarenal abdominal aortic aneurysm measuring up to 4.5 cm and 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 Echocardiogram shows LVEF at 40%. Moderate LV systolic dysfunction with a dilated left ventricle. Assessment and Plan: 61-year-old male with PMH of CAD, A-fib on Xarelto, COPD, BPH, HTN presents to the ER for abnormal lab work. 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 His outpatient troponin I was also elevated. Patient was admitted for appendicitis and elevated troponin likely ACS. #Acute appendicitis As seen on CT abdomen pelvis. Mild leukocytosis. Continue with Zosyn 3.375g IV TID. Does not meet sepsis criteria. Surgery consulted; no surgical intervention at this time, patient to continue on IV antibiotics with transition to oral antibiotics #Melena Obtain stool occult blood. C-scope 2014 sigmoid diverticulosis. Protonix 40 mg IV BID. Repeat CBC tomorrow morning. #A-fib with RVR #Troponin elevation, ACS unlikely Troponin I trended flat at 0.076, 0.073, 0.089 Echocardiogram shows LVEF at 40%. Moderate LV systolic dysfunction with a dilated left ventricle. Telemetry monitoring. Cardiology consulted; started on IV amiodarone and continue with metoprolol 50 mg p.o. daily Low-dose heparin drip #Fatigue Possibly related to above. TSH 1.54, hemoglobin 15.4 Chronic conditions: CAD: Echo 2020 EF 50-55% with moderate concentric LVH, basal inferior LV hypokinesis. Hold ASA. Metoprolol 50 mg PO QD. Lipitor 40 mg PO QHS. Farxiga 10 mg p.o. daily COPD: Albuterol neb Q6H PRN SOB/wheezing. No in acute exacerbation. BPH: Flomax 0.4 mg PO QD. HTN: Imdur 30 mg PO QD. Amlodipine 10 mg PO QD. Metoprolol as above. F: None E: Replete as needed N: N.p.o. A: Ambulatory DVT ppx: Low-dose heparin drip GI prophylaxis: IV Protonix 40 mg twice daily Code Status: Full code Anticipated discharge place: Pending clinical course Anticipated discharge date: Pending clinical course I have seen and evaluated the patient today. Discussed with the resident and agree with the residents finding and plan as documented in the resident's note. Objective - Vital Signs Vital signs: Vital Signs Temp 97.9 F 07/05/24 10:39 Pulse 112 H 07/05/24 15:07 Resp 22 07/05/24 15:07 BP 94/83 07/05/24 15:07 Pulse Ox 97 07/05/24 15:07 FiO2 Intake & Output 07/04/24 07/05/24 07/05/24 18:59 06:59 18:59 Intake Total 5.5 119.5 Output Total 700 Balance 5.5 -580.5 Weight 77.111 kg Intake: Intake, IV Titration 5.5 119.5 Amount Diltiazem 125 mg In 5.5 119.5 Sodium Chloride 0.9% 100 ml @ 5 MG/HR 5 mls/hr IV .Q24H [facility] Rx#:[id number] Output: Urine 700 - Labs CBC & Chem 7: 07/05/24 04:51 07/05/24 04:51 Labs: Abnormal Lab Results - Last 24 Hours (Table) 07/04/24 07/05/24 07/05/24 Range/Units 19:12 04:51 04:51 WBC 11.4 H (3.8-10.6) k/uL Neutrophils # 9.2 H (1.3-7.7) k/uL BUN 6 L (9-20) mg/dL Troponin I 0.089 H* (0.000-0.034) ng/mL Total Protein 5.7 L (6.3-8.2) g/dL Albumin 3.4 L (3.5-5.0) g/dL
--- NOTE | 2024-07-06 08:16 | P.PN ---
Subjective Progress Note Date: 07/06/24 Patient seen and examined at bedside. Continues to deny abdominal pain. States he is hungry and would like advancement of diet. He was started on heparin drip. Objective - Vital Signs Vital signs: Vital Signs Temp 97.9 F 07/05/24 10:39 Pulse 110 H 07/06/24 02:00 Resp 18 07/06/24 02:00 BP 116/72 07/06/24 02:00 Pulse Ox 92 L 07/06/24 02:00 FiO2 Intake & Output 07/05/24 07/06/24 07/06/24 18:59 06:59 18:59 Intake Total 599.5 552 Output Total 700 700 Balance -100.5 -148 Weight 77.111 kg 77.6 kg Intake: Intake, IV Titration 119.5 312 Amount Amiodarone 450 mg In 140 Dextrose 5% in Water 250 ml @ 0.5 MG/MIN 16.667 mls/hr IV .Q15H [facility] Rx#: [id number] Diltiazem 125 mg In 119.5 Sodium Chloride 0.9% 100 ml @ 5 MG/HR 5 mls/hr IV .Q24H [facility] Rx#:[id number] Heparin Sod,Pork in 0.45% 72 NaCl 25,000 unit In 0.45 % NaCl 1 250ml.bag @ 12 UNITS/KG/HR 9.253 mls/hr IV .Q24H [facility] Rx#: [id number] Piperacillin-Tazobactam 3 100 .375 gm In Sodium Chloride 0.9% 100 ml @ 25 mls/hr IVPB Q8HR [facility] Rx# :[id number] Oral 480 240 Output: Urine 700 700 - Constitutional General appearance: Present: cooperative, no acute distress - Respiratory Details: No difficulty with respiration - Gastrointestinal Gastrointestinal Comment(s): Soft, nontender, nondistended, no rebound, no guarding - Psychiatric Psychiatric: Present: A&O x's 3 - Labs CBC & Chem 7: 07/05/24 04:51 07/05/24 04:51 Labs: Abnormal Lab Results - Last 24 Hours (Table) 07/05/24 Range/Units 22:11 APTT 50.3 H (22.0-30.0) sec Assessment and Plan Plan: 69-year-old male with concern for possible appendicitis. Continues to be asymptomatic. Denies abdominal pain. No abdominal pain on exam. Appendicitis may have been diagnosed as early appendicitis and as patient was started on antibiotics early, he may be resolving as based on CODA trial. I discussed surgical option again today and as he continues to have no symptoms, he would like to continue with antibiotic therapy rather than surgical intervention. He is asking for advancement of diet and we will advance his diet today. He is on anticoagulation with heparin drip at this time per cardiology.
[2024-07-06] MEDS: AMIODARONE 200 MG TAB PO SCH (09:04)
[2024-07-06 10:06] LABS: Basophils # (A) 0.1 k/uL (0-0.2); Basophils % (A) 1 %; Eosinophils # (A) 0.2 k/uL (0-0.7); Eosinophils % (A) 2 %; HCT 49.5 % (39.0-53.0); HGB 15.8 gm/dL (13.0-17.5); Lymphocytes % (A) 8 %; MCH 30.2 pg (25.0-35.0); MCHC 31.9 g/dL (31.0-37.0); MCV 94.4 fL (80.0-100.0); Mean Platelet Volume 7.5; Monocytes # (A) 0.8 k/uL (0-1.0); Monocytes % (A) 7 %; Neutrophils # (A) 9.9 k/uL (1.3-7.7); Neutrophils % (A) 81 %; Platelet Count 442 k/uL (150-450); RBC 5.24 m/uL (4.30-5.90); RDW 13.2 % (11.5-15.5); WBC 12.1 k/uL (3.8-10.6)
[2024-07-06 10:15] LABS: INR 1.1 (<1.2); Prothrombin Time 11.8 sec (10.0-12.5)
--- NOTE | 2024-07-06 10:34 | P.PN ---
Subjective Progress Note Date: 07/06/24 Subjective: Patient seen and examined at the bedside. No acute events overnight. Patient denies abdominal pain. Patient states that he has melanotic bowel movement overnight. No bright red blood per rectum. All Systems reviewed and pertinent positives and negatives noted in HPI, all other symptoms are negative Objective: Vital signs reviewed. General: non toxic, no distress, appears at stated age, overweight Derm: no unusual rashes/lesions, warm Head: atraumatic, normocephalic, symmetric Eyes: EOMI, no lid lag, anicteric sclera, pupils equal round reactive to light ENT: Nose and ears atraumatic Neck: No cervical lymphadenopathy, trachea midline, supple Mouth: no lip lesion, mucus membranes moist Cardiovascular: S1S2 irregular, no murmur, positive dorsalis pedis pulse bilateral, no edema Lungs: Decreased breath sounds bilaterally, no rhonchi, no rales, no accessory muscle use Abdominal: soft, nontender to palpation, no guarding Ext: muscle strength 5 out of 5 in all 4 extremities grossly, no gross muscle atrophy, no contractures, Neuro: CN II-XI grossly intact, no gross focal neuro deficits Psych: Alert, oriented, appropriate affect Data reviewed today: Labs: WBC 12.1, hemoglobin 15.8, neutrophil count 9.9, ABG 36.7 Images: CT abdomen and pelvis shows mildly inflamed appendix, colonic diverticulosis, infrarenal abdominal aortic aneurysm measuring up to 4.5 cm and 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 Echocardiogram shows LVEF at 40%. Moderate LV systolic dysfunction with a dilated left ventricle. Assessment and Plan: 61-year-old male with PMH of CAD, A-fib on Xarelto, COPD, BPH, HTN presents to the ER for abnormal lab work. 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 His outpatient troponin I was also elevated. Patient was admitted for appendicitis and elevated troponin likely ACS. Surgery consulted. No surgical intervention at this time patient to be managed medically. Patient on IV antibiotics. #Acute appendicitis As seen on CT abdomen pelvis. Mild leukocytosis. Continue with Zosyn 3.375g IV TID. Surgery consulted; no surgical intervention at this time, patient to continue on IV antibiotics with transition to oral antibiotics Low fiber diet #Melena Obtain stool occult blood. C-scope 2014 sigmoid diverticulosis. Protonix 40 mg IV BID. Repeat CBC tomorrow morning. #A-fib with RVR #Troponin elevation, ACS unlikely Troponin I trended flat at 0.076, 0.073, 0.089 Echocardiogram shows LVEF at 40%. Moderate LV systolic dysfunction with a dilated left ventricle. Telemetry monitoring. Cardiology consulted; rate control managed with IV Cardizem, IV amiodarone and metoprolol 50 mg p.o. daily Low-dose heparin drip for anticoagulation #Fatigue Possibly related to above. TSH 1.54, hemoglobin 15.4 Chronic conditions: CAD: Echo 2020 EF 50-55% with moderate concentric LVH, basal inferior LV hypokinesis. Hold ASA. Metoprolol 50 mg PO QD. Lipitor 40 mg PO QHS. Farxiga 10 mg p.o. daily COPD: Albuterol neb Q6H PRN SOB/wheezing. No in acute exacerbation. BPH: Flomax 0.4 mg PO QD. HTN: Imdur 30 mg PO QD. Amlodipine 10 mg PO QD. Metoprolol as above. F: None E: Replete as needed N: Low fiber diet A: Ambulatory DVT ppx: Low-dose heparin drip GI prophylaxis: IV Protonix 40 mg twice daily Code Status: Full code Anticipated discharge place: Pending clinical course Anticipated discharge date: Pending clinical course I have seen and evaluated the patient today. Discussed with the resident and agree with the residents finding and plan as documented in the resident's note. Patient had one small BM watery and black. HR 118 on telemetry. Surgery recommends no surgical intervention. Amiodarone drip switched to PO. Maintained on Cardizem drip and Heparin drip. Discussed with LORNA Ramirez stool occult pending. Objective - Vital Signs Vital signs: Vital Signs Temp 97.6 F 07/06/24 08:00 Pulse 122 H 07/06/24 08:00 Resp 16 07/06/24 08:00 BP 100/71 07/06/24 08:00 Pulse Ox 96 07/06/24 08:00 FiO2 Intake & Output 07/05/24 07/06/24 07/06/24 18:59 06:59 18:59 Intake Total 599.5 552 200 Output Total 700 700 Balance -100.5 -148 200 Weight 77.111 kg 77.6 kg Intake: Intake, IV Titration 119.5 312 Amount Amiodarone 450 mg In 140 Dextrose 5% in Water 250 ml @ 0.5 MG/MIN 16.667 mls/hr IV .Q15H [facility] Rx#: [id number] Diltiazem 125 mg In 119.5 Sodium Chloride 0.9% 100 ml @ 5 MG/HR 5 mls/hr IV .Q24H [facility] Rx#:[id number] Heparin Sod,Pork in 0.45% 72 NaCl 25,000 unit In 0.45 % NaCl 1 250ml.bag @ 12 UNITS/KG/HR 9.253 mls/hr IV .Q24H [facility] Rx#: [id number] Piperacillin-Tazobactam 3 100 .375 gm In Sodium Chloride 0.9% 100 ml @ 25 mls/hr IVPB Q8HR [facility] Rx# :[id number] Oral 480 240 200 Output: Urine 700 700 - Labs CBC & Chem 7: 07/06/24 09:13 07/05/24 04:51 Labs: Abnormal Lab Results - Last 24 Hours (Table) 07/05/24 07/06/24 07/06/24 Range/Units 22:11 09:13 09:13 WBC 12.1 H (3.8-10.6) k/uL Neutrophils # 9.9 H (1.3-7.7) k/uL APTT 50.3 H 36.7 H (22.0-30.0) sec
[2024-07-06] MEDS: FUROSEMIDE 10 MG/ML 4 ML VIAL IV SCH (14:39)
--- NOTE | 2024-07-06 17:29 | P.PN ---
Subjective Progress Note Date: 07/06/24 HISTORY OF PRESENT ILLNESS: This is a 61-year-old male with past medical history of CAD, A-fib on Xarelto, COPD, hypertension, and cardiomyopathy. Patient follows in the office with Dr. Mcneil. We have been asked to see the patient in consultation for chest pain and elevated troponins. Patient was examined at the bedside in the emergency room. Patient states he has been having melanotic stools and diarrhea that started over Labor Day weekend. PCP had ordered a CTAP which showed prominent appendix thickness with mild inflammatory changes concerning for appendicitis and was started on Cipro and Flagyl, which improved his symptoms but then they returned. Patient had blood work done yesterday morning and the doctor called and told him to come in due to elevated troponins. Patient denies chest pain, shortness of breath, fevers or chills at this time Most recent echocardiogram July 04, 2024 showed LVEF estimated 40%, moderate LV systolic dysfunction with dilated left ventricle, dilated right ventricle Labs today show WBC 12.1. PTT 36.7. 07/06 Patient's blood pressure is 100/71. Heart rate is in the 120s. Satting 94% on 2 L nasal cannula. Patient denies any abdominal pain and states he is hungry diet will be advanced per surgery. PHYSICAL EXAMINATION Vital signs reviewed. Head: Normocephalic. Eyes: Sclerae nonicteric. Neck: Brisk carotid upstroke, no jugular venous distention. Lungs: Clear to auscultation. No significant wheezing or rhonchi appreciated Heart: Irregular rhythm, S1-S2, no murmur or rub. Abdomen: Soft nontender, positive bowel sounds. Extremities: 2+ bilateral lower extremity edema Neuro: Alert, oritented, no focal deficits. Detailed neuro exam was not performed. ASSESSMENT Acute appendicitis Troponin elevation: Flat Atrial flutter History of CAD History of A-fib Hypertension Hyperlipidemia Tobacco use PLAN Surgery on board, recommending conservative approach Discontinued amlodipine Started Lasix 40 mg IV twice daily IV amiodarone has been transitioned to 400 mg PO daily Continue Cardizem drip Continue home cardiac meds except Xarelto which has been substituted with heparin due to potential surgical intervention Patient is cleared from cardiac standpoint for surgical intervention regarding appendicitis. Monitor renal function Monitor vital signs Further recommendations to follow based upon clinical course Objective - Vital Signs Vital signs: Vital Signs Temp 97.6 F 07/06/24 08:00 Pulse 133 H 07/06/24 16:00 Resp 16 07/06/24 16:00 BP 90/51 07/06/24 16:00 Pulse Ox 94 L 07/06/24 16:00 FiO2 Intake & Output 07/05/24 07/06/24 07/06/24 18:59 06:59 18:59 Intake Total 599.5 552 791.305 Output Total 700 700 Balance -100.5 -148 791.305 Weight 77.111 kg 77.6 kg Intake: Intake, IV Titration 119.5 312 351.305 Amount Amiodarone 450 mg In 140 Dextrose 5% in Water 250 ml @ 0.5 MG/MIN 16.667 mls/hr IV .Q15H [facility] Rx#: [id number] Diltiazem 125 mg In 119.5 124.833 Sodium Chloride 0.9% 100 ml @ 5 MG/HR 5 mls/hr IV .Q24H [facility] Rx#:[id number] Heparin Sod,Pork in 0.45% 72 226.472 NaCl 25,000 unit In 0.45 % NaCl 1 250ml.bag @ 12 UNITS/KG/HR 9.253 mls/hr IV .Q24H [facility] Rx#: [id number] Piperacillin-Tazobactam 3 100 .375 gm In Sodium Chloride 0.9% 100 ml @ 25 mls/hr IVPB Q8HR [facility] Rx# :[id number] Oral 480 240 440 Output: Urine 700 700 - Labs CBC & Chem 7: 07/06/24 09:13 07/05/24 04:51 Labs: Abnormal Lab Results - Last 24 Hours (Table) 07/05/24 07/06/24 07/06/24 Range/Units 22:11 09:13 09:13 WBC 12.1 H (3.8-10.6) k/uL Neutrophils # 9.9 H (1.3-7.7) k/uL APTT 50.3 H 36.7 H (22.0-30.0) sec
[2024-07-07 08:00] LABS: Basophils # (A) 0.1 k/uL (0-0.2); Basophils % (A) 1 %; Eosinophils # (A) 0.2 k/uL (0-0.7); Eosinophils % (A) 2 %; HCT 46.1 % (39.0-53.0); HGB 15.4 gm/dL (13.0-17.5); Lymphocytes # (A) 1.1 k/uL (1.0-4.8); Lymphocytes % (A) 10 %; MCH 30.8 pg (25.0-35.0); MCHC 33.4 g/dL (31.0-37.0); MCV 92.1 fL (80.0-100.0); Monocytes # (A) 0.7 k/uL (0-1.0); Monocytes % (A) 6 %; Neutrophils # (A) 8.8 k/uL (1.3-7.7); Neutrophils % (A) 80 %; Platelet Count 396 k/uL (150-450); RBC 5.01 m/uL (4.30-5.90); RDW 13.4 % (11.5-15.5)
[2024-07-07 09:14] LABS: African American GFR (CKD) >90 (>60 ml/min/1.73 sqM); Anion Gap 7 mmol/L; Blood Urea Nitrogen 9 mg/dL (9-20); Calcium 9.2 mg/dL (8.4-10.2); Carbon Dioxide 28 mmol/L (22-30); Chloride 103 mmol/L (98-107); Glucose 112 mg/dL (74-99); Non-African American GFR(CKD) >90 (>60 ml/min/1.73 sqM); Potassium 3.8 mmol/L (3.5-5.1); Sodium 138 mmol/L (137-145)
--- NOTE | 2024-07-07 11:55 | XR ---
EXAMINATION TYPE: XR chest 1V portable DATE OF EXAM: 07/07/2024 HISTORY: Shortness of breath. COMPARISON: 07/04/2024 TECHNIQUE: Single view of the chest is submitted. FINDINGS: Demonstrated are scattered senescent parenchymal change. There is no evidence for focal infiltrate. The heart is stable. Hilar and mediastinal structures are within normal limits. Degenerative changes are seen of the dorsal spine. IMPRESSION: 1. Chronic changes without evidence for acute pulmonary disease.
--- NOTE | 2024-07-07 15:13 | P.PN ---
Subjective Progress Note Date: 07/07/24 Subjective: Patient seen and examined at the bedside. No acute events overnight. Patient denies abdominal pain. Continues melanoti to have bowel movement. No bright red blood per rectum. All Systems reviewed and pertinent positives and negatives noted in HPI, all other symptoms are negative Objective: Vital signs reviewed. General: non toxic, no distress, appears at stated age, overweight Derm: no unusual rashes/lesions, warm Head: atraumatic, normocephalic, symmetric Eyes: EOMI, no lid lag, anicteric sclera, pupils equal round reactive to light ENT: Nose and ears atraumatic Neck: No cervical lymphadenopathy, trachea midline, supple Mouth: no lip lesion, mucus membranes moist Cardiovascular: S1S2 regular, s3, no murmur, positive dorsalis pedis pulse bilateral, no edema Lungs: Decreased breath sounds Left base no rhonchi, no rales, no accessory muscle use Abdominal: soft, nontender to palpation, no guarding Ext: muscle strength 5 out of 5 in all 4 extremities grossly, no gross muscle atrophy, no contractures, Neuro: CN II-XI grossly intact, no gross focal neuro deficits Psych: Alert, oriented, appropriate affect Data reviewed today: Labs: WBC 11.0, hemoglobin 15.4, APTT 132.7, sodium 138, potassium 3.8, creatinine 0.78, BUN 9, glucose 112 Stool occult blood is negative. No new imaging. Assessment and Plan: 61-year-old male with PMH of CAD, A-fib on Xarelto, COPD, BPH, HTN presents to the ER for abnormal lab work. 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 His outpatient troponin I was also elevated. Patient was admitted for appendicitis and elevated troponin with concerns for ACS. Cardiology consulted. ACS ruled out. Surgery consulted. No surgical intervention at this time patient to be managed medically. Patient on IV antibiotics. #Acute appendicitis, abdominal pain resolved Patient denies abdominal pain Continue with Zosyn 3.375g IV TID. Surgery consulted; no surgical intervention at this time, patient to continue on IV antibiotics with transition to oral antibiotics Continue with low fiber diet #Melena Stool occult blood test is negative. Patient continued to have black-colored stools. C-scope 2014 showed sigmoid diverticulosis. Protonix 40 mg IV BID. Repeat CBC tomorrow morning. Patient likely need outpatient C-scope for further investigation. #A-fib with RVR #Troponin elevation, ACS unlikely Troponin I trended flat at 0.076, 0.073, 0.089; stop trending Echocardiogram shows LVEF at 40%. Moderate LV systolic dysfunction with a dilated left ventricle. Telemetry monitoring. Cardiology consulted; rate control with IV Cardizem, amiodarone 400 mg p.o. twice daily and metoprolol 50 mg p.o. daily Xarelto 20 mg p.o. daily for anticoagulation MPI stress test tomorrow #Fatigue Possibly related to above. TSH 1.54, hemoglobin 15.4 Chronic conditions: CAD: Echo 2020 EF 50-55% with moderate concentric LVH, basal inferior LV hypokinesis. Hold ASA. Metoprolol 50 mg PO QD. Lipitor 40 mg PO QHS. Farxiga 10 mg p.o. daily COPD: Albuterol neb Q6H PRN SOB/wheezing. No in acute exacerbation. BPH: Flomax 0.4 mg PO QD. HTN: Imdur 30 mg PO QD (on hold). continue with amlodipine 10 mg PO QD. M etoprolol as above. F: None E: Replete as needed N: Low fiber diet A: Ambulatory DVT ppx: Low-dose heparin drip GI prophylaxis: IV Protonix 40 mg twice daily Code Status: Full code Anticipated discharge place: Pending clinical course Anticipated discharge date: Pending clinical course I have seen and evaluated the patient today. Discussed with the resident and agree with the residents finding and plan as documented in the resident's note. Patient had one small BM watery and black. Stool occult negative. Converted to sinus rhythm. Cardiology plans for stress test tomorrow. Continued on Heparin drip. Objective - Vital Signs Vital signs: Vital Signs Temp 97.5 F L 07/07/24 08:00 Pulse 62 07/07/24 08:00 Resp 16 07/07/24 08:00 BP 107/67 07/07/24 08:00 Pulse Ox 95 07/07/24 08:00 FiO2 Intake & Output 07/06/24 07/07/24 07/07/24 18:59 06:59 18:59 Intake Total 791.305 57.333 180 Output Total 200 Balance 791.305 -142.667 180 Weight 76.7 kg Intake: Intake, IV Titration 351.305 57.333 Amount Diltiazem 125 mg In 124.833 57.333 Sodium Chloride 0.9% 100 ml @ 5 MG/HR 5 mls/hr IV .Q24H [facility] Rx#:[id number] Heparin Sod,Pork in 0.45% 226.472 NaCl 25,000 unit In 0.45 % NaCl 1 250ml.bag @ 12 UNITS/KG/HR 9.253 mls/hr IV .Q24H [facility] Rx#: [id number] Oral 440 180 Output: Urine 200 Other: # Voids 3 1 - Labs CBC & Chem 7: 07/07/24 16:42 07/07/24 07:26 Labs: Abnormal Lab Results - Last 24 Hours (Table) 07/06/24 07/07/24 07/07/24 Range/Units 17:20 07:26 07:26 WBC 11.0 H (3.8-10.6) k/uL Neutrophils # 8.8 H (1.3-7.7) k/uL APTT 45.9 H (22.0-30.0) sec Glucose 112 H (74-99) mg/dL 07/07/24 Range/Units 07:26 WBC (3.8-10.6) k/uL Neutrophils # (1.3-7.7) k/uL APTT 132.7 H* (22.0-30.0) sec Glucose (74-99) mg/dL
[2024-07-07] MEDS: RIVAROXABAN 20 MG TAB PO SCH (16:16)
[2024-07-07] MEDS ORDERED: HEPARIN SODIUM 1,000 UN/ML (10ML VL) IV PRN (16:18)
[2024-07-07] MEDS: HEPARIN SOD,PORK IN 0.45% NACL 25,000 UNIT in 0.45% NACL 1 250ML.BAG IV SCH (16:29)
[2024-07-07 16:57] LABS: Basophils % (A) 0 %; Eosinophils # (A) 0.2 k/uL (0-0.7); Eosinophils % (A) 2 %; HCT 46.3 % (39.0-53.0); Hypochromasia Slight; Lymphocytes % (A) 10 %; MCH 30.6 pg (25.0-35.0); MCHC 32.5 g/dL (31.0-37.0); MCV 94.3 fL (80.0-100.0); Mean Platelet Volume 7.1; Monocytes # (A) 0.6 k/uL (0-1.0); Monocytes % (A) 6 %; Neutrophils # (A) 8.1 k/uL (1.3-7.7); Neutrophils % (A) 79 %; Platelet Count 374 k/uL (150-450); RBC 4.91 m/uL (4.30-5.90); RDW 13.2 % (11.5-15.5); WBC 10.3 k/uL (3.8-10.6)
[2024-07-07 17:11] LABS: Partial Thromboplastin Time 50.6 sec (22.0-30.0)
--- NOTE | 2024-07-07 18:11 | P.PN ---
Subjective Progress Note Date: 07/07/24 HISTORY OF PRESENT ILLNESS: This is a 61-year-old male with past medical history of CAD, A-fib on Xarelto, COPD, hypertension, and cardiomyopathy. Patient follows in the office with Dr. Mcneil. We have been asked to see the patient in consultation for chest pain and elevated troponins. Patient was examined at the bedside in the emergency room. Patient states he has been having melanotic stools and diarrhea that started over Labor Day weekend. PCP had ordered a CTAP which showed prominent appendix thickness with mild inflammatory changes concerning for appendicitis and was started on Cipro and Flagyl, which improved his symptoms but then they returned. Patient had blood work done yesterday morning and the doctor called and told him to come in due to elevated troponins. Patient denies chest pain, shortness of breath, fevers or chills at this time Most recent echocardiogram July 04, 2024 showed LVEF estimated 40%, moderate LV systolic dysfunction with dilated left ventricle, dilated right ventricle Labs today show WBC 12.1. PTT 36.7. 07/06 Patient's blood pressure is 100/71. Heart rate is in the 120s. Satting 94% on 2 L nasal cannula. Patient denies any abdominal pain and states he is hungry diet will be advanced per surgery. 07/07 Yesterday, patient was started on IV Lasix 40 mg twice daily. He has been maintained on heparin drip for 48 hours. Patient has converted to a sinus rhythm and heart rate is running in the 90s. Blood pressure 107/67, pulse ox 95% on room air. Patient denies having any chest pain. He has been seen and followed by general surgery with no plan for surgery for appendectomy. Patient is agreeable to move forward tomorrow with Lexiscan stress test. PHYSICAL EXAMINATION Vital signs reviewed. Head: Normocephalic. Eyes: Sclerae nonicteric. Neck: Brisk carotid upstroke, no jugular venous distention. Lungs: Clear to auscultation. No significant wheezing or rhonchi appreciated Heart: Irregular rhythm, S1-S2, no murmur or rub. Abdomen: Soft nontender, positive bowel sounds. Extremities: 2+ bilateral lower extremity edema Neuro: Alert, oritented, no focal deficits. Detailed neuro exam was not performed. ASSESSMENT Acute appendicitis with no plan for surgical intervention Troponin elevation: Flat Atrial flutter, typical, with RVR converted to sinus rhythm History of CAD History of A-fib Hypertension Hyperlipidemia Tobacco use PLAN Continue Lasix 40 mg IV twice daily for another 24 hours Continue the following cardiac medications: Amiodarone 400 mg twice daily, atorvastatin 40 mg at bedtime, Farxiga 10 mg daily, Toprol XL 50 mg daily 400 mg PO daily Discontinue Cardizem drip, if needed will increase beta-dima for rate control Continue heparin drip and hold Xarelto Schedule patient for Lexiscan stress test tomorrow N.p.o. after midnight Monitor MITCHELL, daily weights, electrolytes and renal function Further recommendations to follow based upon clinical course Nurse practitioner note has been reviewed, I agree with documented findings and plan of care. Patient was seen and examined. Objective - Vital Signs Vital signs: Vital Signs Temp 98.4 F 07/07/24 11:52 Pulse 56 L 07/07/24 11:52 Resp 15 07/07/24 11:52 BP 104/67 07/07/24 11:52 Pulse Ox 95 07/07/24 08:00 FiO2 Intake & Output 07/06/24 07/07/24 07/07/24 18:59 06:59 18:59 Intake Total 791.305 57.333 375.588 Output Total 200 Balance 791.305 -142.667 375.588 Weight 76.7 kg Intake: Intake, IV Titration 351.305 57.333 195.588 Amount Diltiazem 125 mg In 124.833 57.333 Sodium Chloride 0.9% 100 ml @ 5 MG/HR 5 mls/hr IV .Q24H [facility] Rx#:[id number] Heparin Sod,Pork in 0.45% 226.472 195.588 NaCl 25,000 unit In 0.45 % NaCl 1 250ml.bag @ 12 UNITS/KG/HR 9.253 mls/hr IV .Q24H [facility] Rx#: [id number] Oral 440 180 Output: Urine 200 Other: # Voids 3 1 - Labs CBC & Chem 7: 07/07/24 16:42 07/07/24 07:26 Labs: Abnormal Lab Results - Last 24 Hours (Table) 07/06/24 07/07/24 07/07/24 Range/Units 17:20 07:26 07:26 WBC 11.0 H (3.8-10.6) k/uL Neutrophils # 8.8 H (1.3-7.7) k/uL APTT 45.9 H (22.0-30.0) sec Glucose 112 H (74-99) mg/dL 07/07/24 Range/Units 07:26 WBC (3.8-10.6) k/uL Neutrophils # (1.3-7.7) k/uL APTT 132.7 H* (22.0-30.0) sec Glucose (74-99) mg/dL
--- NOTE | 2024-07-07 22:43 | P.PN ---
Subjective Patient seen and evaluated at bedside. Patient doing well, tolerating diet, no pain. Objective - Vital Signs Vital signs: Vital Signs Temp 97.9 F 07/07/24 20:00 Pulse 64 07/07/24 20:00 Resp 18 07/07/24 20:00 BP 109/66 07/07/24 20:00 Pulse Ox 95 07/07/24 20:00 FiO2 Intake & Output 07/07/24 07/07/24 07/08/24 06:59 18:59 06:59 Intake Total 57.333 1335.588 Output Total 200 Balance -377.215 7093.588 Weight 76.7 kg Intake: Intake, IV Titration 57.333 195.588 Amount Diltiazem 125 mg In 57.333 Sodium Chloride 0.9% 100 ml @ 5 MG/HR 5 mls/hr IV .Q24H [facility] Rx#:[id number] Heparin Sod,Pork in 0.45% 195.588 NaCl 25,000 unit In 0.45 % NaCl 1 250ml.bag @ 12 UNITS/KG/HR 9.253 mls/hr IV .Q24H [facility] Rx#: [id number] Oral 1140 Output: Urine 200 Other: # Voids 2 - Exam gen: nad cv: rrr pul: non labored abd: soft, non distended, non tender - Labs CBC & Chem 7: 07/07/24 16:42 07/07/24 07:26 Labs: Abnormal Lab Results - Last 24 Hours (Table) 07/07/24 07/07/24 07/07/24 Range/Units 07:26 07:26 07:26 WBC 11.0 H (3.8-10.6) k/uL Neutrophils # 8.8 H (1.3-7.7) k/uL APTT 132.7 H* (22.0-30.0) sec Glucose 112 H (74-99) mg/dL 07/07/24 07/07/24 07/07/24 Range/Units 16:42 16:42 21:56 WBC (3.8-10.6) k/uL Neutrophils # 8.1 H (1.3-7.7) k/uL APTT 50.6 H 43.3 H (22.0-30.0) sec Glucose (74-99) mg/dL Assessment and Plan Assessment: 69 w/ suspected appendicitis -patient asx, tolerating diet, receive abx outpatient -stable for discharge Time with Patient: Less than 30
[2024-07-08 04:32] LABS: Basophils # (A) 0.1 k/uL (0-0.2); Basophils % (A) 1 %; Eosinophils # (A) 0.2 k/uL (0-0.7); Eosinophils % (A) 2 %; HCT 44.1 % (39.0-53.0); HGB 14.1 gm/dL (13.0-17.5); Lymphocytes # (A) 1.1 k/uL (1.0-4.8); Lymphocytes % (A) 13 %; MCH 29.7 pg (25.0-35.0); MCHC 31.9 g/dL (31.0-37.0); MCV 93.1 fL (80.0-100.0); Mean Platelet Volume 7.3; Monocytes # (A) 0.5 k/uL (0-1.0); Monocytes % (A) 6 %; Neutrophils # (A) 6.3 k/uL (1.3-7.7); Neutrophils % (A) 76 %; Platelet Count 361 k/uL (150-450); RBC 4.74 m/uL (4.30-5.90); RDW 13.3 % (11.5-15.5); WBC 8.3 k/uL (3.8-10.6)
[2024-07-08 04:42] LABS: Partial Thromboplastin Time 39.4 sec (22.0-30.0); Prothrombin Time 11.3 sec (10.0-12.5)
[2024-07-08 04:44] LABS: African American GFR (CKD) >90 (>60 ml/min/1.73 sqM); Anion Gap 3 mmol/L; Blood Urea Nitrogen 8 mg/dL (9-20); Calcium 8.9 mg/dL (8.4-10.2); Carbon Dioxide 34 mmol/L (22-30); Chloride 101 mmol/L (98-107); Glucose 114 mg/dL (74-99); Non-African American GFR(CKD) 89 (>60 ml/min/1.73 sqM); Potassium 3.6 mmol/L (3.5-5.1); Sodium 138 mmol/L (137-145)
[2024-07-08] MEDS ORDERED: CAFFEINE CITRATE 60 MG/3 ML VIAL IV PRN (06:00)
[2024-07-08] MEDS ORDERED: AMINOPHYLLINE 500 MG/20 ML VIAL IV PRN (06:00)
[2024-07-08] MEDS ORDERED: REGADENOSON 0.4 MG/5 ML SYRINGE IV PRN (07:00)
[2024-07-08] MEDS ORDERED: REGADENOSON 0.4 MG/5 ML SYRINGE IV ONE ×2 (08:00)
[2024-07-08 09:00] LABS: African American GFR (CKD) >90 (>60 ml/min/1.73 sqM); Anion Gap 3 mmol/L; Blood Urea Nitrogen 8 mg/dL (9-20); Calcium 9.1 mg/dL (8.4-10.2); Carbon Dioxide 35 mmol/L (22-30); Chloride 100 mmol/L (98-107); Glucose 105 mg/dL (74-99); Magnesium 1.8 mg/dL (1.6-2.3); Non-African American GFR(CKD) >90 (>60 ml/min/1.73 sqM); Potassium 3.8 mmol/L (3.5-5.1); Sodium 138 mmol/L (137-145)
--- NOTE | 2024-07-08 11:06 | CA ---
Lexiscan Nuclear Stress Test Report Name: Sriram Nguyen Exam Date: 07/08/2024 09:06 Exam Location: [facility] Ht (in): 64 Wt (lb): 169 BSA: 1.82 Ordering Phys: Ibeth Siegel Referring Phys: WAN, Technologist: Yash Costa Age: 69 Gender: M : 1955 Procedure CPT: Indications: Reflex order-Stress test ICD-10 Codes: Patient History: DIFFICULTY IN BREATHING, PALPITATIONS, HTN, PRIOR STROKE, HYPERCHOLESTEROLEMIA, PRIOR AK, PRIOR SMOKER, COPD Medications: Meds past 24 hrs: Pretest Chest Pain: STRESS TEST Lexiscan Protocol Exercise Duration (min:sec): 01:[address] Depressions (mm): Angina Score: Ellis Score: Resting HR (bpm): 53 Peak HR (bpm): 69 Resting BP (mmHg): 130 / 93 Peak BP (mmHg): 130 / 93 MPHR: 152 Target HR: 129 % MPHR: 45 METS: 1.0 Total Dose: Peak Dose: Atropine: Double Product: 8970 BP Response: Stress Termination: INFUSION COMPLETE Stress Symptoms: NO SYMPTOMS Stress Summary: ECG ANALYSIS Resting ECG: Sinus bradycardia and poor R-wave progression nonspecific ST-T wave changes Stress ECG: Patient was given intravenous Lexiscan as a protocol did not have chest pain or diagnostic ST segment depression CONCLUSIONS Inconclusive EKG part of the stress test due to baseline EKG abnormalities Cardiolite portion of the stress test will be reported separately Dr. Brandon Barry MD (Electronically Signed) Final Date: 08 July 2024 11:05
--- NOTE | 2024-07-08 14:09 | P.PN ---
Subjective Progress Note Date: 07/08/24 HISTORY OF PRESENT ILLNESS: This is a 61-year-old male with past medical history of CAD, A-fib on Xarelto, COPD, hypertension, and cardiomyopathy. Patient follows in the office with Dr. Mcneil. We have been asked to see the patient in consultation for chest pain and elevated troponins. Patient was examined at the bedside in the emergency room. Patient states he has been having melanotic stools and diarrhea that started over Labor Day weekend. PCP had ordered a CTAP which showed prominent appendix thickness with mild inflammatory changes concerning for appendicitis and was started on Cipro and Flagyl, which improved his symptoms but then they returned. Patient had blood work done yesterday morning and the doctor called and told him to come in due to elevated troponins. Patient denies chest pain, shortness of breath, fevers or chills at this time Most recent echocardiogram July 04, 2024 showed LVEF estimated 40%, moderate LV systolic dysfunction with dilated left ventricle, dilated right ventricle Labs today show WBC 12.1. PTT 36.7. 07/06 Patient's blood pressure is 100/71. Heart rate is in the 120s. Satting 94% on 2 L nasal cannula. Patient denies any abdominal pain and states he is hungry diet will be advanced per surgery. 07/07 Yesterday, patient was started on IV Lasix 40 mg twice daily. He has been maintained on heparin drip for 48 hours. Patient has converted to a sinus rhythm and heart rate is running in the 90s. Blood pressure 107/67, pulse ox 95% on room air. Patient denies having any chest pain. He has been seen and followed by general surgery with no plan for surgery for appendectomy. Patient is agreeable to move forward tomorrow with Lexiscan stress test. 07/08 Patient is scheduled for Lexiscan stress test today. Blood pressure 104/61, heart rate 45, pulse ox 90% on room air. Repeat blood work reveals BUN 8 creatinine 0.77. Patient has been maintained on IV Lasix 40 mg twice daily. Patient remains on a heparin drip until results of Lexiscan is available. Xarelto remains on hold PHYSICAL EXAMINATION Vital signs reviewed. Head: Normocephalic. Eyes: Sclerae nonicteric. Neck: Brisk carotid upstroke, no jugular venous distention. Lungs: Clear to auscultation. No significant wheezing or rhonchi appreciated Heart: Irregular rhythm, S1-S2, no murmur or rub. Abdomen: Soft nontender, positive bowel sounds. Extremities: 2+ bilateral lower extremity edema Neuro: Alert, oritented, no focal deficits. Detailed neuro exam was not perform ed. ASSESSMENT Acute appendicitis with no plan for surgical intervention Troponin elevation: Flat Atrial flutter, typical, with RVR converted to sinus rhythm History of CAD History of A-fib Hypertension Hyperlipidemia Tobacco use PLAN Transition IV Lasix to oral 40 mg twice daily Continue the following cardiac medications: Amiodarone 400 mg twice daily, atorvastatin 40 mg at bedtime, Farxiga 10 mg daily, Toprol XL 50 mg daily 400 mg PO daily Continue heparin drip and hold Xarelto Schedule patient for Lexiscan stress test today Monitor MITCHELL, daily weights, electrolytes and renal function Further recommendations to follow based upon clinical course Nurse practitioner note has been reviewed, I agree with documented findings and plan of care. Patient was seen and examined. Objective - Vital Signs Vital signs: Vital Signs Temp 97.6 F 07/08/24 04:00 Pulse 60 07/08/24 11:59 Resp 16 07/08/24 08:00 BP 104/61 07/08/24 08:00 Pulse Ox 90 L 07/08/24 08:00 FiO2 Intake & Output 07/07/24 07/08/24 07/08/24 18:59 06:59 18:59 Intake Total 1335.588 96.211 Output Total 400 325 Balance 1335.588 -303.789 -325 Weight 78.5 kg Intake: Intake, IV Titration 195.588 96.211 Amount Heparin Sod,Pork in 0.45% 96.211 NaCl 25,000 unit In 0.45 % NaCl 1 250ml.bag @ 12 UNITS/KG/HR 9.204 mls/hr IV .Q24H [facility] Rx#: [id number] Heparin Sod,Pork in 0.45% 195.588 NaCl 25,000 unit In 0.45 % NaCl 1 250ml.bag @ 12 UNITS/KG/HR 9.253 mls/hr IV .Q24H [facility] Rx#: [id number] Oral 1140 Output: Urine 400 325 Other: # Voids 2 1 - Labs CBC & Chem 7: 07/08/24 03:59 07/08/24 08:00 Labs: Abnormal Lab Results - Last 24 Hours (Table) 07/07/24 07/07/24 07/07/24 Range/Units 16:42 16:42 21:56 Neutrophils # 8.1 H (1.3-7.7) k/uL APTT 50.6 H 43.3 H (22.0-30.0) sec Carbon Dioxide (22-30) mmol/L BUN (9-20) mg/dL Glucose (74-99) mg/dL 07/08/24 07/08/24 07/08/24 Range/Units 03:59 03:59 08:00 Neutrophils # (1.3-7.7) k/uL APTT 39.4 H (22.0-30.0) sec Carbon Dioxide 34 H 35 H (22-30) mmol/L BUN 8 L 8 L (9-20) mg/dL Glucose 114 H 105 H (74-99) mg/dL
--- NOTE | 2024-07-08 15:12 | P.PN ---
Subjective Progress Note Date: 07/08/24 Subjective: Patient seen and examined at the bedside. No acute events overnight. All Systems reviewed and pertinent positives and negatives noted in HPI, all other symptoms are negative Objective: Vital signs reviewed. General: non toxic, no distress, appears at stated age, overweight Derm: no unusual rashes/lesions, warm Head: atraumatic, normocephalic, symmetric Eyes: EOMI, no lid lag, anicteric sclera, pupils equal round reactive to light ENT: Nose and ears atraumatic Neck: No cervical lymphadenopathy, trachea midline, supple Mouth: no lip lesion, mucus membranes moist Cardiovascular: S1S2 regular, S3, no murmur, positive dorsalis pedis pulse bilateral, no edema Lungs: Decreased breath sounds Left base no rhonchi, no rales, no accessory muscle use Abdominal: soft, nontender to palpation, no guarding Ext: muscle strength 5 out of 5 in all 4 extremities grossly, no gross muscle atrophy, no contractures, Neuro: CN II-XI grossly intact, no gross focal neuro deficits Psych: Alert, oriented, appropriate affect Data reviewed today: Labs: WBC 8.3, hemoglobin 14.1, platelet count 361, PT 11.3, INR 1.0, APTT 39.4, sodium 138, potassium 3.8, BUN 8, creatinine 0.76, calcium 9.1, magnesium 1.8 Lexiscan stress test pending Assessment and Plan: 61-year-old male with PMH of CAD, A-fib on Xarelto, COPD, BPH, HTN presents to the ER for abnormal lab work. 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 His outpatient troponin I was also elevated. Patient was admitted for appendicitis and elevated troponin with concerns for ACS. Cardiology consulted. ACS ruled out. Surgery consulted. No surgical intervention at this time patient to be managed medically. Patient on IV antibiotics. Nuclear stress test today. #Acute appendicitis, abdominal pain resolved Patient denies abdominal pain Continue with Zosyn 3.375g IV TID. Surgery consulted; no surgical intervention at this time, patient to continue on IV antibiotics with transition to oral antibiotics Continue with low fiber diet #Melena Stool occult blood test is negative. Patient continued to have black-colored stools. C-scope 2014 showed sigmoid diverticulosis. Protonix 40 mg IV BID. Repeat CBC tomorrow morning. Patient likely need outpatient C-scope for further investigation. #A-fib with RVR, converted to sinus rhythm #Troponin elevation, ACS unlikely Troponin I trended flat at 0.076, 0.073, 0.089; stop trending Echocardiogram shows LVEF at 40%. Moderate LV systolic dysfunction with a d ilated left ventricle. Telemetry monitoring. Cardiology consulted; continue amiodarone 400 mg p.o. twice daily and metoprolol 50 mg p.o. daily, Farxiga 10 mg daily, Lipitor 40 mg at bedtime Continue heparin drip, hold Xarelto MPI stress test today, results pending #Fatigue Possibly related to above. TSH 1.54, hemoglobin 15.4 Chronic conditions: CAD: Echo 2020 EF 50-55% with moderate concentric LVH, basal inferior LV hypokinesis. Hold ASA. Metoprolol 50 mg PO QD. Lipitor 40 mg PO QHS. Farxiga 10 mg p.o. daily COPD: Albuterol neb Q6H PRN SOB/wheezing. No in acute exacerbation. BPH: Flomax 0.4 mg PO QD. HTN: Imdur 30 mg PO QD (on hold). Hold amlodipine 10 mg PO QD. Metoprolol as above. F: None E: Replete as needed N: Low fiber diet A: Ambulatory DVT ppx: Low-dose heparin drip GI prophylaxis: IV Protonix 40 mg twice daily Code Status: Full code Anticipated discharge place: Pending clinical course Anticipated discharge date: Pending clinical course I have seen and evaluated the patient today. Discussed with the resident and agree with the residents finding and plan as documented in the resident's note. Underwent stress test today. Results pending. No complaints. Discussed with patient and at bedside. Lasix switched to PO. Objective - Vital Signs Vital signs: Vital Signs Temp 97.6 F 07/08/24 04:00 Pulse 61 07/08/24 04:00 Resp 16 07/08/24 04:00 BP 111/72 07/08/24 04:00 Pulse Ox 97 07/08/24 04:00 FiO2 Intake & Output 07/07/24 07/08/24 07/08/24 18:59 06:59 18:59 Intake Total 1335.588 96.211 Output Total 400 325 Balance 1335.588 -303.789 -325 Weight 78.5 kg Intake: Intake, IV Titration 195.588 96.211 Amount Heparin Sod,Pork in 0.45% 96.211 NaCl 25,000 unit In 0.45 % NaCl 1 250ml.bag @ 12 UNITS/KG/HR 9.204 mls/hr IV .Q24H [facility] Rx#: [id number] Heparin Sod,Pork in 0.45% 195.588 NaCl 25,000 unit In 0.45 % NaCl 1 250ml.bag @ 12 UNITS/KG/HR 9.253 mls/hr IV .Q24H [facility] Rx#: [id number] Oral 1140 Output: Urine 400 325 Other: # Voids 2 1 - Labs CBC & Chem 7: 07/08/24 03:59 07/08/24 08:00 Labs: Abnormal Lab Results - Last 24 Hours (Table) 07/07/24 07/07/24 07/07/24 Range/Units 16:42 16:42 21:56 Neutrophils # 8.1 H (1.3-7.7) k/uL APTT 50.6 H 43.3 H (22.0-30.0) sec Carbon Dioxide (22-30) mmol/L BUN (9-20) mg/dL Glucose (74-99) mg/dL 07/08/24 07/08/24 07/08/24 Range/Units 03:59 03:59 08:00 Neutrophils # (1.3-7.7) k/uL APTT 39.4 H (22.0-30.0) sec Carbon Dioxide 34 H 35 H (22-30) mmol/L BUN 8 L 8 L (9-20) mg/dL Glucose 114 H 105 H (74-99) mg/dL
--- NOTE | 2024-07-08 16:27 | P.PN ---
Subjective patient seen and evaluated at bedside. Patient tolerating a diet. Denies any abdominal pain. Objective - Vital Signs Vital signs: Vital Signs Temp 97.6 F 07/08/24 04:00 Pulse 55 L 07/08/24 14:00 Resp 16 07/08/24 14:00 BP 93/59 07/08/24 12:00 Pulse Ox 93 L 07/08/24 12:00 FiO2 Intake & Output 07/07/24 07/08/24 07/08/24 18:59 06:59 18:59 Intake Total 1335.588 96.211 Output Total 400 325 Balance 1335.588 -303.789 -325 Weight 78.5 kg Intake: Intake, IV Titration 195.588 96.211 Amount Heparin Sod,Pork in 0.45% 96.211 NaCl 25,000 unit In 0.45 % NaCl 1 250ml.bag @ 12 UNITS/KG/HR 9.204 mls/hr IV .Q24H [facility] Rx#: [id number] Heparin Sod,Pork in 0.45% 195.588 NaCl 25,000 unit In 0.45 % NaCl 1 250ml.bag @ 12 UNITS/KG/HR 9.253 mls/hr IV .Q24H [facility] Rx#: [id number] Oral 1140 Output: Urine 400 325 Other: # Voids 2 1 - Exam Physical exam: HEENT: Normocephalic, sclerae nonicteric Chest: Clear to auscultation Heart: Regular rate and rhythm Abdomen: [Nontender, nondistended] Extremities: No edema Neuro: Alert and oriented gen: nad cv: rrr pul: non labored breathing abd: soft, non tender to palpation, no guarding or rebound tenderness - Labs CBC & Chem 7: 07/08/24 03:59 07/08/24 08:00 Labs: Abnormal Lab Results - Last 24 Hours (Table) 07/07/24 07/07/24 07/07/24 Range/Units 16:42 16:42 21:56 Neutrophils # 8.1 H (1.3-7.7) k/uL APTT 50.6 H 43.3 H (22.0-30.0) sec Carbon Dioxide (22-30) mmol/L BUN (9-20) mg/dL Glucose (74-99) mg/dL 07/08/24 07/08/2407/08/24 Range/Units 03:59 03:59 08:00 Neutrophils # (1.3-7.7) k/uL APTT 39.4 H (22.0-30.0) sec Carbon Dioxide 34 H 35 H (22-30) mmol/L BUN 8 L 8 L (9-20) mg/dL Glucose 114 H 105 H (74-99) mg/dL Assessment and Plan Assessment: 69-year-old male with resolving appendicitis secondary to antibiotics patient is tolerating a diet and and appears to be doing very well according to the Kt trial patients will do well with antibiotics but 30% may return with appendicitis we will follow with him outpatient. Time with Patient: Less than 30
[2024-07-08] MEDS: FUROSEMIDE 40 MG TAB PO SCH (17:57)
[2024-07-09 08:10] LABS: African American GFR (CKD) >90 (>60 ml/min/1.73 sqM); Anion Gap 4 mmol/L; Blood Urea Nitrogen 12 mg/dL (9-20); Carbon Dioxide 35 mmol/L (22-30); Chloride 100 mmol/L (98-107); Glucose 100 mg/dL (74-99); Magnesium 1.9 mg/dL (1.6-2.3); Non-African American GFR(CKD) 90 (>60 ml/min/1.73 sqM); Potassium 3.8 mmol/L (3.5-5.1); Sodium 139 mmol/L (137-145)
--- NOTE | 2024-07-09 09:42 | P.PN ---
Subjective Progress Note Date: 07/09/24 The patient was seen and evaluated this morning with he is completely asymptomatic and hemodynamically stable and he would like to go home. The stress test results still pending. Currently is not on any anticoagulation. The physical examination is remarkable for regular rhythm with soft systolic murmur and clear breathing sounds bilaterally and no edema was noted in the lower extremities Assessment Atrial flutter patient currently is in normal sinus mechanism History of paroxysmal atrial fibrillation Coronary artery disease Appendicitis Multiple comorbid conditions Plan Follow-up with the results of the stress test Further recommendation to follow Objective - Vital Signs Vital signs: Vital Signs Temp 98 F 07/09/24 03:28 Pulse 68 07/09/24 08:25 Resp 16 07/09/24 03:28 BP 107/61 07/09/24 03:28 Pulse Ox 92 L 07/09/24 03:28 FiO2 Intake & Output 07/08/24 07/09/24 07/09/24 18:59 06:59 18:59 Output Total 1225 Balance -1225 Weight 75.7 kg Output: Urine 1225 Other: Voiding Method Toilet # Voids 0 - Labs CBC & Chem 7: 07/08/24 03:59 07/09/24 07:30 Labs: Abnormal Lab Results - Last 24 Hours (Table) 07/09/24 Range/Units 07:30 Carbon Dioxide 35 H (22-30) mmol/L Glucose 100 H (74-99) mg/dL
--- NOTE | 2024-07-09 15:06 | P.PN ---
Subjective Progress Note Date: 07/09/24 Subjective: Patient seen and examined at the bedside. No acute events overnight. All Systems reviewed and pertinent positives and negatives noted in HPI, all other symptoms are negative Objective: Vital signs reviewed. General: non toxic, no distress, appears at stated age, overweight Derm: no unusual rashes/lesions, warm Head: atraumatic, normocephalic, symmetric Eyes: EOMI, no lid lag, anicteric sclera, pupils equal round reactive to light ENT: Nose and ears atraumatic Neck: No cervical lymphadenopathy, trachea midline, supple Mouth: no lip lesion, mucus membranes moist Cardiovascular: S1S2 regular, S3, no murmur, positive dorsalis pedis pulse bilateral, no edema Lungs: Decreased breath sounds Left base, no rhonchi, no rales, no accessory muscle use Abdominal: soft, nontender to palpation, no guarding Ext: muscle strength 5 out of 5 in all 4 extremities grossly, no gross muscle at rophy, no contractures, Neuro: CN II-XI grossly intact, no gross focal neuro deficits Psych: Alert, oriented, appropriate affect Data reviewed today: Labs: Sodium 139, potassium 3.8, bicarb 35, BUN 12, creatinine 0.5, glucose 100 Lexiscan stress test pending Assessment and Plan: 61-year-old male with PMH of CAD, A-fib on Xarelto, COPD, BPH, HTN presents to the ER for abnormal lab work. 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 His outpatient t roponin I was also elevated. Patient was admitted for appendicitis and elevated troponin with concerns for ACS. Cardiology consulted. ACS ruled out. Surgery consulted. No surgical intervention at this time patient to be managed medically. Patient on IV antibiotics. Nuclear stress test results pending. #Acute appendicitis, abdominal pain resolved Patient denies abdominal pain Continue with Zosyn 3.375g IV TID. Surgery consulted; no surgical intervention at this time, patient to continue on IV antibiotics with transition to oral antibiotics Continue with heart healthy diet #Contraction alkalosis secondary to loop diuretic Bicarb 35 Encourage oral fluid intake Decrease Lasix to 40 mg p.o. daily Continue monitor BMP #Melena Stool occult blood test is negative. Patient continued to have black-colored stools. C-scope 2014 showed sigmoid diverticulosis. Protonix 40 mg IV BID. Monitor CBC. Patient likely need outpatient C-scope for further investigation. #A-fib with RVR, converted to sinus rhythm #Troponin elevation, ACS unlikely Troponin I trended flat at 0.076, 0.073, 0.089; stop trending Echocardiogram shows LVEF at 40%. Moderate LV systolic dysfunction with a dilated left ventricle. Telemetry monitoring. Cardiology consulted; continue amiodarone 400 mg p.o. twice daily and metoprolol 50 mg p.o. daily, Farxiga 10 mg daily, Lipitor 40 mg at bedtime Continue heparin drip, hold Xarelto MPI stress test results pending #Fatigue Possibly related to above. TSH 1.54, hemoglobin 15.4 Chronic conditions: CAD: Echo 2020 EF 50-55% with moderate concentric LVH, basal inferior LV hypokinesis. Hold ASA. Metoprolol 50 mg PO QD. Lipitor 40 mg PO QHS. Farxiga 10 mg p.o. daily COPD: Albuterol neb Q6H PRN SOB/wheezing. No in acute exacerbation. BPH: Flomax 0.4 mg PO QD. HTN: Imdur 30 mg PO QD (on hold). Hold amlodipine 10 mg PO QD. Metoprolol as above. F: None E: Replete as needed N: Heart healthy diet A: Ambulatory DVT ppx: Low-dose heparin drip GI prophylaxis: IV Protonix 40 mg twice daily Code Status: Full code Anticipated discharge place: Pending clinical course Anticipated discharge date: Pending clinical course I have seen and evaluated the patient today. Discussed with the resident and agree with the residents finding and plan as documented in the resident's note. Lexiscan results show large fixed defect TID 1.19 borderline. No complaints. Discussed with patient and at bedside. Will discuss results with Cardiology tomorrow. Objective - Vital Signs Vital signs: Vital Signs Temp 98 F 07/09/24 03:28 Pulse 68 07/09/24 08:25 Resp 16 07/09/24 08:00 BP 107/61 07/09/24 03:28 Pulse Ox 92 L 07/09/24 03:28 FiO2 Intake & Output 07/08/24 07/09/24 07/09/24 18:59 06:59 18:59 Intake Total 237.661 Output Total 1225 Balance -1225 237.661 Weight 75.7 kg Intake: Intake, IV Titration 237.661 Amount Heparin Sod,Pork in 0.45% 237.661 NaCl 25,000 unit In 0.45 % NaCl 1 250ml.bag @ 12 UNITS/KG/HR 9.204 mls/hr IV .Q24H [facility] Rx#: [id number] Output: Urine 1225 Other: Voiding Method Toilet Toilet # Voids 0 - Labs CBC & Chem 7: 07/08/24 03:59 07/09/24 07:30 Labs: Abnormal Lab Results - Last 24 Hours (Table) 07/09/24 Range/Units 07:30 Carbon Dioxide 35 H (22-30) mmol/L Glucose 100 H (74-99) mg/dL
--- NOTE | 2024-07-09 15:30 | NM ---
EXAMINATION TYPE: NM stress lexiscan cardiolite DATE OF EXAM: 07/08/2024 COMPARISON: NONE CLINICAL INDICATION: Male, 69 years old with history of elevated troponins; TECHNIQUE: After the intravenous administration of 10.8 mCi Tc 99m Sestamibi - Cardiolite resting SP ECT images acquired 45 minutes post injection. The patient received 0.4mg Lexiscan, 25.9 mCi Tc 99m Sestamibi - Stress images obtained [address] injection FINDINGS: Review of stress and rest SPECT images demonstrates large area of fixed perfusion defect along the in ferior wall. There is adjacent GI activity and the perfusion defect is larger on rest images. Finding s favored to represent prominent diaphragmatic attenuation artifact. No distinct reversibility is see n. Gated analysis shows mild global hypokinesis with an estimated left ventricular ejection fraction of 50 %. TID is borderline at 1.19. IMPRESSION: 1. Large fixed area of perfusion defect involving the inferior wall. As the area is larger on rest, w e favor prominent diaphragmatic attenuation artifact. Correlate for any history of old infarct. 2. Estimated LVEF is borderline diminished at 50%. Note that the 'transient ischemic dilatation ratio ' is also borderline at 1.19 (a TID of 1.2 may be considered abnormal and can be seen in the setting of global inducible ischemia). Further workup as clinically indicated. 3. No discrete reversibility on this exam. [facility], Workstation [id number], 07/09/2024 3:27 PM
--- NOTE | 2024-07-09 18:22 | P.PN ---
Progress Note - Text Progress Note Date: 07/09/24 NAEO. Denies pain. Denies N/V. Tolerating diet VSS General-NAD Abdomen-soft, NTND 69-year-old male with resolving appendicitis secondary to antibiotics -transition from IV abx to oral abx -once transitioned, ok for discharge from General Surgery standpoint -Regular Diet Gilberto Vega DO [facility] [phone]
[2024-07-09] MEDS: AMIODARONE 200 MG TAB PO SCH (21:42)
[2024-07-10 04:23] VITALS: TEMP 98.2
--- NOTE | 2024-07-10 09:03 | P.PN ---
Subjective Progress Note Date: 07/10/24 July 09, 2024 the patient was seen and evaluated this morning with he is completely asymptomatic and hemodynamically stable and he would like to go home. The stress test results still pending. Currently is not on any anticoagulation. The physical examination is remarkable for regular rhythm with soft systolic murmur and clear breathing sounds bilaterally and no edema was noted in the lower extremities July 10, 2024 The patient was seen and evaluated this morning and he remains asymptomatic with no pain in the chest or shortness of breath or dizziness or lightheadedness or any feeling of heart racing or furthering. He is bradycardic with heart rate in the 50s with him going to decrease the dose of amiodarone and continue current dose of metoprolol. Potentially he can be discharged home. The myocardial perfusion imaging stress test came to be overall unremarkable with inferior fixed defect felt to be diaphragm attenuation and no reversibility seen. With that being said the patient potentially can be discharged home and he would like to go home. Will stop the heparin and start the patient on oral anticoagulation. Examination is remarkable for regular rhythm with a clear breathing sounds bilaterally and no edema was noted. Assessment Atrial flutter patient currently is in normal sinus mechanism History of paroxysmal atrial fibrillation Coronary artery disease Appendicitis Multiple comorbid conditions Plan DC heparin and start the patient on oral anticoagulation Continue the rest of the current medical regimen Decrease the dose of amiodarone The patient can be discharged home Objective - Vital Signs Vital signs: Vital Signs Temp 98.2 F 07/10/24 04:19 Pulse 56 L 07/10/24 08:36 Resp 14 07/10/24 04:19 BP 114/69 07/10/24 04:19 Pulse Ox 92 L 07/10/24 04:19 FiO2 Intake & Output 07/09/24 07/10/24 07/10/24 18:59 06:59 18:59 Intake Total 1371.661 349.979 Output Total 800 200 Balance 571.661 149.979 Weight 74.5 kg Intake: Intake, IV Titration 237.661 127.979 Amount Heparin Sod,Pork in 0.45% 237.661 127.979 NaCl 25,000 unit In 0.45 % NaCl 1 250ml.bag @ 12 UNITS/KG/HR 9.204 mls/hr IV .Q24H [facility] Rx#: [id number] Oral 1134 222 Output: Urine 800 200 Other: Voiding Method Toilet Toilet # Voids 2 - Labs CBC & Chem 7: 07/08/24 03:59 07/09/24 07:30 Labs: Abnormal Lab Results - Last 24 Hours (Table) 07/09/24 07/10/24 Range/Units 17:12 00:18 APTT 43.2 H 49.6 H (22.0-30.0) sec
--- NOTE | 2024-07-10 09:30 | P.PN ---
Progress Note - Text Progress Note Date: 07/10/24 NAEO. Denies pain. Denies N/V. Tolerating diet VSS General-NAD Abdomen-soft, NTND 69-year-old male with resolving appendicitis secondary to antibiotics -transition from IV abx to oral abx -once transitioned, ok for discharge from General Surgery standpoint -Regular Diet Gilberto Vega DO [facility] [phone]
[2024-07-10 09:33] LABS: Basophils # (A) 0.1 k/uL (0-0.2); Basophils % (A) 1 %; Eosinophils # (A) 0.3 k/uL (0-0.7); Eosinophils % (A) 2 %; HCT 47.3 % (39.0-53.0); HGB 14.9 gm/dL (13.0-17.5); Hypochromasia Slight; Lymphocytes # (A) 1.2 k/uL (1.0-4.8); Lymphocytes % (A) 11 %; MCH 29.7 pg (25.0-35.0); MCHC 31.5 g/dL (31.0-37.0); MCV 94.3 fL (80.0-100.0); Mean Platelet Volume 8.2; Monocytes # (A) 0.8 k/uL (0-1.0); Monocytes % (A) 7 %; Neutrophils # (A) 8.2 k/uL (1.3-7.7); Neutrophils % (A) 77 %; Platelet Count 367 k/uL (150-450); RBC 5.01 m/uL (4.30-5.90); RDW 13.4 % (11.5-15.5); WBC 10.6 k/uL (3.8-10.6)
[2024-07-10] MEDS: FUROSEMIDE 40 MG TAB PO SCH (09:40)
[2024-07-10] MEDS: LOSARTAN 25 MG TAB PO SCH (09:40)
[2024-07-10] MEDS: AMIODARONE 200 MG TAB PO SCH (09:40)
[2024-07-10] MEDS: ASPIRIN 81 MG PO SCH (09:40)
[2024-07-10 09:46] LABS: African American GFR (CKD) >90 (>60 ml/min/1.73 sqM); Anion Gap 9 mmol/L; Blood Urea Nitrogen 16 mg/dL (9-20); Calcium 9.4 mg/dL (8.4-10.2); Carbon Dioxide 29 mmol/L (22-30); Chloride 100 mmol/L (98-107); Glucose 143 mg/dL (74-99); Magnesium 1.9 mg/dL (1.6-2.3); Non-African American GFR(CKD) >90 (>60 ml/min/1.73 sqM); Potassium 4.2 mmol/L (3.5-5.1); Sodium 138 mmol/L (137-145)
[2024-07-10] MEDS: METOPROLOL SUCCINATE (ER) 25 MG TAB.ER.24H PO SCH (10:50)
[2024-07-10 12:40] VITALS: BP 114/72; PULSE 54; RESP 18
--- NOTE | 2024-07-10 13:21 | P.DS ---
Providers Date of admission: 07/06/24 14:53 Expected date of discharge: 07/10/24 Attending physician: Sena Mistry MD Consults: 07/04/24 15:21 Consult Physician Urgent Consulting Provider: Danilo Roy Consult Reason/Comments: Troponin elevation Do you want consulting provider notified?: Yes 07/04/24 15:56 Consult Physician Stat Consulting Provider: Segundo Vale Consult Reason/Comments: Appendicitis on CT? Melena Do you want consulting provider notified?: Yes Primary care physician: [facility] Course: 69 year old M with PMH of CAD, AFib on Xarelto, COPD, BPH, HTN presents to the ED for abnormal lab work. He reports melenotic stools and diarrhea (> 8 episodes/day) that started over Labor Day weekend. Symptoms were associated with periumbillical pain. Symptoms lasted for 4 days. 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 He was started on Cipro and Flagyl which improved his symptoms. His symptoms spontaneously returned today. reports fatigue and sleepiness which is out of character for him. He had lab work done today which resulted in a Troponin of 0.081 and was told to come to the ED. He denies any chest pain. In the ED he underwent extensive evaluation. BP 130/90, HR 76, T 97.4F, RR 16, 91% on RA. CBC, Coag panel, CMP significant for WBC 11.2, INR 1.2, Na 134, glu 101, total protein 6.1. Troponin 0.076, EKG sinus rhythm with PVCs and Q wave in V1 and V2. CXR negative. KUB non specific bowel gas pattern. Patient is admitted for further workup and management. Started on Zosyn for concerns of appendicitis. Evaluated by surgery and decision made to complete course of antibiotics, avoiding surgery for now and outpatient follow up. Troponins remained flat at 0.076, 0.073, 0.089. Cardiology consulted. Echo showed EF 40% with dilated RV. Patient went into A-Fib with RVR requiring aminodarone drip which was eventually transitioned to PO with Metoprolol titrated up. Stool occult negative, patient started on heparin drip. Started on Lasix IV for diuresis and eventually transitioned to PO. Underwent Lexiscan which showed large fixed defect and TID 1.19 which was borderline. 07/10 Patient was seen and examined. No complaints. Feeling well. Cardiology has cleared the patient for discharge. CBC and BMP significant for glu 143. Plans for discharge home on Losartan (lowered dose), Metoprolol (lowered dose), Amiodarone and 5 days of Moxifloxacin (to complete a total of 10 days antibiotics). Advised PCP follow up in 1-2 days, Dr. Roy within [address] Vale within 1 week. Advised him the need for possible appendectomy in the future. Patient verbalized understanding of the plan. General: Nontoxic, no distress, appears at stated age Derm: Warm, dry Head: Atraumatic, normocephalic, symmetric Eyes: EOMI, no lid lag, anicteric sclera Mouth: No lip lesion, mucus membranes moist Cardiovascular: RRR. Normal S1 S2. No murmurs, rubs, gallops Lungs: Decreased BS BL, no accessory muscle use Abdominal: Soft, non distended, non tender to palpation Ext: No gross muscle atrophy, no edema, no contractures Psych: Alert, oriented, appropriate affect Discharge Diagnosis: Atrial fibrillation with RVR Systolic CHF exacerbation Acute appendicitis Metabolic alkaosis like contraction alkaosis from forced diuresis Troponin elevation Fatigue CAD COPD BPH HTN This complex discharge took 35 minutes to complete. Patient Condition at Discharge: Stable Plan - Discharge Summary Discharge Rx Participant: No New Discharge Prescriptions: New Losartan [Cozaar] 25 mg PO DAILY #30 tab Moxifloxacin HCl [Avelox] 400 mg PO DAILY #5 tab Amiodarone [Cordarone] 200 mg PO DAILY #30 tab Metoprolol Succinate (ER) [Toprol XL] 25 mg PO DAILY #30 tab Continue Tamsulosin HCl 0.4 mg PO DAILY Vitamin B Complex 1 cap PO DAILY Ubidecarenone [Co Q-10] 100 mg PO DAILY Glucosamine Sulfate 500 mg PO DAILY Aspirin 81 mg PO DAILY #90 chewable Nitroglycerin Sl Tabs [Nitrostat] 0.4 mg SUBLINGUAL Q5M PRN #25 tab PRN Reason: Chest Pain Latanoprost [Latanoprost 0.005%] 1 drop BOTH EYES HS Albuterol Nebulized [Ventolin Nebulized] 2.5 mg INHALATION RT-Q6H PRN PRN Reason: Shortness Of Breath Rivaroxaban [Xarelto] 20 mg PO DAILY Budesonide/Glycopyr/Formoterol [Breztri Aerosphere Inhaler] 2 puff INHALATION RT-BID hydrOXYzine HCL [Atarax] 25 mg PO HS Atorvastatin Calcium [Lipitor] 40 mg PO HS Dapagliflozin Propanediol [Farxiga] 10 mg PO DAILY Changed Furosemide [Lasix] 40 mg PO DAILY #0 Discontinued Losartan Potassium 100 mg PO DAILY Isosorbide Mononitrate [Isosorbide Mononitrate ER] 30 mg PO DAILY Metoprolol Succinate (ER) [Toprol Xl] 50 mg PO DAILY amLODIPine [Norvasc] 10 mg PO DAILY metroNIDAZOLE [Flagyl] 500 mg PO TID Ciprofloxacin HCl [Cipro] 500 mg PO Q12HR Discharge Medication List Tamsulosin HCl 0.4 mg PO DAILY 02/23/15 [History] Ubidecarenone [Co Q-10] 100 mg PO DAILY 02/23/15 [History] Vitamin B Complex 1 cap PO DAILY 02/23/15 [History] Glucosamine Sulfate 500 mg PO DAILY 07/08/18 [History] Albuterol Nebulized [Ventolin Nebulized] 2.5 mg INHALATION RT-Q6H PRN 02/05/21 [History] Aspirin 81 mg PO DAILY #90 chewable 02/06/21 [Rx] Nitroglycerin Sl Tabs [Nitrostat] 0.4 mg SUBLINGUAL Q5M PRN #25 tab 02/06/21 [Rx] Atorvastatin Calcium [Lipitor] 40 mg PO HS 07/04/24 [History] Budesonide/Glycopyr/Formoterol [Breztri Aerosphere Inhaler] 2 puff INHALATION RT-BID 07/04/24 [History] Dapagliflozin Propanediol [Farxiga] 10 mg PO DAILY 07/04/24 [History] Latanoprost [Latanoprost 0.005%] 1 drop BOTH EYES HS 07/04/24 [History] Rivaroxaban [Xarelto] 20 mg PO DAILY 07/04/24 [History] hydrOXYzine HCL [Atarax] 25 mg PO HS 07/04/24 [History] Amiodarone [Cordarone] 200 mg PO DAILY #30 tab 07/10/24 [Rx] Furosemide [Lasix] 40 mg PO DAILY #0 07/10/24 [Rx] Losartan [Cozaar] 25 mg PO DAILY #30 tab 07/10/24 [Rx] Metoprolol Succinate (ER) [Toprol XL] 25 mg PO DAILY #30 tab 07/10/24 [Rx] Moxifloxacin HCl [Avelox] 400 mg PO DAILY #5 tab 07/10/24 [Rx] Follow up Appointment(s)/Referral(s): Danilo Roy MD [STAFF PHYSICIAN] - 1 Week Rolly Randall MD [Primary Care Provider] - 1-2 days Segundo Vale DO [Doctor of Osteopathic Medicine] - 1 Week Activity/Diet/Wound Care/Special Instructions: Diet: Cardiac, 1.5 L fluid restriction daily Discharge Disposition: HOME SELF-CARE
[2024-07-10] MEDS ORDERED: RIVAROXABAN 20 MG TAB PO SCH (17:30)
[2024-07-11] MEDS ORDERED: PANTOPRAZOLE 40 MG TABLET PO SCH (07:30)
== END 2024-07-10 12:37 | disposition home or self-care (01) | DRG 393 ==
LOC: EC 12:32 → 3SCARD 15:24 → OBSVTOIN 07-06 14:53
PROVIDERS: ADMIT Family Medicine; ATTEND Family Medicine
PROC: 4A02XM4 Measurement of Cardiac Total Activity, External Approach (ICD-10-PCS; principal; 2024-07-08)
DX: K35.80 Unspecified acute appendicitis (principal); I50.23 Acute on chronic systolic (congestive) heart failure; E87.3 Alkalosis; I48.3 Typical atrial flutter; I48.92 Unspecified atrial flutter; K92.1 Melena; I42.9 Cardiomyopathy, unspecified; I11.0 Hypertensive heart disease with heart failure; I48.0 Paroxysmal atrial fibrillation; K57.30 Diverticulosis of large intestine without perforation or abscess without bleeding; R79.89 Other specified abnormal findings of blood chemistry; T36.95XA Adverse effect of unspecified systemic antibiotic, initial encounter; I25.10 Atherosclerotic heart disease of native coronary artery without angina pectoris; T50.1X5A Adverse effect of loop [high-ceiling] diuretics, initial encounter; I48.91 Unspecified atrial fibrillation; R00.0 Tachycardia, unspecified; J44.9 Chronic obstructive pulmonary disease, unspecified; N40.0 Benign prostatic hyperplasia without lower urinary tract symptoms; E78.5 Hyperlipidemia, unspecified; Z79.01 Long term (current) use of anticoagulants; R53.83 Other fatigue; I25.2 Old myocardial infarction; I49.3 Ventricular premature depolarization; Z79.51 Long term (current) use of inhaled steroids; Z79.82 Long term (current) use of aspirin; Z79.84 Long term (current) use of oral hypoglycemic drugs; Z79.899 Other long term (current) drug therapy; Z87.891 Personal history of nicotine dependence; Z88.5 Allergy status to narcotic agent; X58.XXXA Exposure to other specified factors, initial encounter; Z86.73 Personal history of transient ischemic attack (TIA), and cerebral infarction without residual deficits; Z87.19 Personal history of other diseases of the digestive system
CPT/HCPCS: 36415; 71045; 71046; 74019; 74177; 78452; 80048; 80053; 82150; 82272; 83605; 83690; 83735; 84443; 84484; 85025; 85610; 85730; 93005; 93017; 93306; 94640; 94760; 96361; 96365; 96366; 96368; 96375; 96376; 99285

== ENCOUNTER → 2024-07-04 | Outpatient (CLI) | payer MEDICARE ==
[2024-07-04 10:34] LABS: Basophils # (A) 0.1 k/uL (0-0.2); Basophils % (A) 1 %; Eosinophils # (A) 0.2 k/uL (0-0.7); Eosinophils % (A) 2 %; HCT 45.7 % (39.0-53.0); HGB 15.1 gm/dL (13.0-17.5); Lymphocytes # (A) 1.3 k/uL (1.0-4.8); Lymphocytes % (A) 13 %; MCH 30.6 pg (25.0-35.0); MCV 92.8 fL (80.0-100.0); Mean Platelet Volume 7.2; Monocytes # (A) 0.7 k/uL (0-1.0); Monocytes % (A) 7 %; Neutrophils # (A) 7.8 k/uL (1.3-7.7); Neutrophils % (A) 76 %; Platelet Count 395 k/uL (150-450); RBC 4.93 m/uL (4.30-5.90); RDW 13.1 % (11.5-15.5); WBC 10.3 k/uL (3.8-10.6)
[2024-07-04 10:46] LABS: ALT 22 U/L (4-49); AST 27 U/L (17-59); African American GFR (CKD) >90 (>60 ml/min/1.73 sqM); Albumin 3.1 g/dL (3.5-5.0); Albumin/Globulin Ratio 1.3; Alkaline Phosphatase 71 U/L (38-126); Amylase 36 U/L (30-110); Anion Gap 5 mmol/L; Blood Urea Nitrogen 11 mg/dL (9-20); Calcium 8.8 mg/dL (8.4-10.2); Carbon Dioxide 32 mmol/L (22-30); Chloride 99 mmol/L (98-107); Globulin 2.3 g/dL; Glucose 101 mg/dL (74-99); Lipase 61 U/L (23-300); Magnesium 1.8 mg/dL (1.6-2.3); Non-African American GFR(CKD) 89 (>60 ml/min/1.73 sqM); Potassium 4.3 mmol/L (3.5-5.1); Sodium 136 mmol/L (137-145); Total Bilirubin 0.4 mg/dL (0.2-1.3); Total Protein 5.4 g/dL (6.3-8.2)
== END | disposition home or self-care (01) ==
LOC: LABWHC1 09:21
PROVIDERS: ATTEND Nurse Practitioner Adult Health
DX: R00.0 Tachycardia, unspecified (principal); R10.31 Right lower quadrant pain
CPT/HCPCS: 36415; 80053; 82150; 82550; 82552; 83690; 83735; 84484; 85025

== ENCOUNTER → 2024-09-06 | Outpatient (CLI) | payer MEDICARE ==
[2024-09-06 16:29] LABS: ALT 18 U/L (10-49); AST 34 U/L (14-35); Albumin 4.1 g/dL (3.8-4.9); Albumin/Globulin Ratio 1.86 Ratio (1.60-3.17); Alkaline Phosphatase 108 U/L (41-126); BUN/Creat Ratio 20.69 Ratio (12.00-20.00); Blood Urea Nitrogen 26.9 mg/dL (9.0-27.0); Calcium 9.6 mg/dL (8.7-10.3); Carbon Dioxide 30.7 mmol/L (21.6-31.8); Chloride 101 mmol/L (96-109); Chol/HDL Ratio 2.53 Ratio; Globulin 2.2 g/dL (1.6-3.3); Glucose 111 mg/dL (70-110); LDL Cholesterol,Calculated 76.6 mg/dL (0.0-131.0); Potassium 4.9 mmol/L (3.5-5.5); Sodium 141 mmol/L (135-145); Total Bilirubin 0.4 mg/dL (0.3-1.2); Total Protein 6.3 g/dL (6.2-8.2); VLDL Calculation 13.62 mg/dL (5.00-40.00)
== END | disposition home or self-care (01) ==
LOC: LABWHC1 08:12
PROVIDERS: ATTEND Internal Medicine Interventional Cardiology
DX: I48.0 Paroxysmal atrial fibrillation (principal); E78.2 Mixed hyperlipidemia
CPT/HCPCS: 36415; 80053; 80061; 84443

== ENCOUNTER 2024-10-14 07:05 | Emergency (ER) | payer MEDICARE ==
[2024-10-14 07:22] VITALS: TEMP 97.7
[2024-10-14] MEDS: HYDROmorphone 1 MG/ML 1 ML SYRINGE IVP STA (07:43)
[2024-10-14] MEDS: SODIUM CHLORIDE 0.9% 500 ML 500 ML IV STA (07:44)
--- NOTE | 2024-10-14 07:45 | ED ---
General Adult HPI - General Chief complaint: Abdominal Pain Stated complaint: Abdominal Pain Time Seen by Provider: 10/14/24 07:20 Source: patient, family, RN notes reviewed, old records reviewed Mode of arrival: wheelchair Limitations: no limitations - History of Present Illness Initial comments: 69-year-old male who presents to the emergency department stating that [place] it [place] and it landed on top of him . Patient states it sat on top and for about 2 hours before he got help and the next day he was sore and his leg was bruised up. Patient states he did not really think much of it and yesterday all of a sudden he started having left- sided flank pain is gotten progressively worse since then and now any movement at all hurts quite a bit. Patient states it is more in the abdomen than in the ribs. Patient states he has had no fever chills. Patient denies vomiting or diarrhea. Patient denies any numbness weakness patient has any other symptoms at this time. - Related Data Home Medications Medication Instructions Recorded Confirmed Tamsulosin HCl 0.4 mg PO DAILY 02/23/15 07/04/24 Ubidecarenone [Co Q-10] 100 mg PO DAILY 02/23/15 07/04/24 Vitamin B Complex 1 cap PO DAILY 02/23/15 07/04/24 Glucosamine Sulfate 500 mg PO DAILY 07/08/18 07/04/24 Albuterol Nebulized [Ventolin 2.5 mg INHALATION RT-Q6H PRN 02/05/21 07/04/24 Nebulized] Atorvastatin Calcium [Lipitor] 40 mg PO HS 07/04/24 07/04/24 Budesonide/Glycopyr/Formoterol 2 puff INHALATION RT-BID 07/04/24 07/04/24 [Breztri Aerosphere Inhaler] Dapagliflozin Propanediol [Farxiga] 10 mg PO DAILY 07/04/24 07/04/24 Latanoprost [Latanoprost 0.005%] 1 drop BOTH EYES HS 07/04/24 07/04/24 Rivaroxaban [Xarelto] 20 mg PO DAILY 07/04/24 07/04/24 hydrOXYzine HCL [Atarax] 25 mg PO HS 07/04/24 07/04/24 Previous Rx's Medication Instructions Recorded Aspirin 81 mg PO DAILY #90 chewable 02/06/21 Nitroglycerin Sl Tabs [Nitrostat] 0.4 mg SUBLINGUAL Q5M PRN #25 tab 02/06/21 Amiodarone [Cordarone] 200 mg PO DAILY #30 tab 07/10/24 Furosemide [Lasix] 40 mg PO DAILY #0 07/10/24 Losartan [Cozaar] 25 mg PO DAILY #30 tab 07/10/24 Metoprolol Succinate (ER) [Toprol 25 mg PO DAILY #30 tab 07/10/24 XL] Moxifloxacin HCl [Avelox] 400 mg PO DAILY #5 tab 07/10/24 Allergies Allergy/AdvReac Type Severity Reaction Status Date / Time naproxen sodium [From Aleve] Allergy Rash/Hives Verified 10/14/24 07:17 Review of Systems ROS Statement: Those systems with pertinent positive or pertinent negative responses have been documented in the HPI. ROS Other: All systems not noted in ROS Statement are negative. Past Medical History Past Medical History: Coronary Artery Disease (CAD), CVA/TIA, Hyperlipidemia, Hypertension, Myocardial Infarction (DC) Additional Past Medical History / Comment(s): JUN 22. Last Myocardial Infarction Date:: UNKNOWN History of Any Multi-Drug Resistant Organisms: None Reported Past Surgical History: Tonsillectomy Additional Past Surgical History / Comment(s): ventral hernia repair Past Anesthesia/Blood Transfusion Reactions: No Reported Reaction Past Psychological History: No Psychological Hx Reported Smoking Status: Former smoker Past Alcohol Use History: None Reported Past Drug Use History: None Reported - Past Family History Mother Family Medical History: Deep Vein Thrombosis (DVT) General Exam - General Exam Comments Initial Comments: GENERAL: Patient is well-developed and well-nourished. Patient is nontoxic and well- hydrated and is in no acute distress. ENT: Neck is soft and supple. No significant lymphadenopathy is noted. Oropharynx is clear. Moist mucous membranes. Neck has full range of motion without eliciting any pain. EYES: The sclera were anicteric and conjunctiva were pink and moist. Extraocular movements were intact and pupils were equal round and reactive to light. Eyelids were unremarkable. PULMONARY: Unlabored respirations. Good breath sounds bilaterally. No audible rales rhonchi or wheezing was noted. CARDIOVASCULAR: There is a regular rate and rhythm without any murmurs gallops or rubs. ABDOMEN: Patient's abdomen is slightly distended and extremely tender along the whole left flank. SKIN: Skin is clear with no lesions or rashes and otherwise unremarkable. NEUROLOGIC: Patient is alert and oriented x3. Cranial nerves II through XII are grossly intact. Motor and sensory are also intact. Normal speech, volume and content. Symmetrical smile. MUSCULOSKELETAL: Normal extremities with adequate strength and full range of motion. LYMPHATICS: No significant lymphadenopathy is noted PSYCHIATRIC: Normal psychiatric evaluation. Limitations: no limitations Course Vital Signs 10/14/24 07:17 Temperature 97.7 F Pulse Rate 61 Respiratory 20 Rate Blood Pressure 179/107 O2 Sat by Pulse 92 L Oximetry Medical Decision Making - Medical Decision Making Was pt. sent in by a medical professional or institution (TAMERA Conde, MECHANICAL MAINTENANCE FOREMAN, urgent care, hospital, or assisted...) When possible be specific @ -No Did you speak to anyone other than the patient for history (EMS, parent, family, police, friend...)? What history was obtained from this source @ -No Did you review nursing and triage notes (agree or disagree)? Why? @ -I reviewed and agree with nursing and triage notes Were old charts reviewed (outside hosp., previous admission, EMS record, old EKG, old radiological studies, urgent care reports/EKG's, assisted records)? Report findings @ -No old charts were reviewed Differential Diagnosis? @ -Rib fracture, pneumothorax, liver laceration, renal contusion, muscular strain, this is not an all-inclusive list EKG interpreted by me (3pts min.). @ -As above X-rays interpreted by me (1pt min.). @ -None done CT interpreted by me (1pt min.). @ -CT of the chest abdomen pelvis shows a right obturator hematoma and a right 11th rib fracture. U/S interpreted by me (1pt. min.). @ -None done What testing was considered but not performed or refused? (CT, X-rays, U/S, labs)? Why? @ -None What meds were considered but not given or refused? Why? @ -None Did you discuss the management of the patient with other professionals (professionals i.e. TAMERA Conde, MECHANICAL MAINTENANCE FOREMAN, lab, RT, psych nurse, pin worker, knifer up, teacher, community services officer, lead case manager)? Give summary @ -No Was smoking cessation discussed for >3mins.? @ -No Was critical care preformed (if so, how long)? @ -No Were there social determinants of health that impacted care today? How? (Homelessness, low income, unemployed, alcoholism, drug addiction, transportation, low edu. Level, literacy, decrease access to med. care, retirement, rehab)? @ -No Was there de-escalation of care discussed even if they declined (Discuss DNR or withdrawal of care, Hospice)? DNR status @ -No What co-morbidities impacted this encounter? (DM, HTN, Smoking, COPD, CAD, Cancer, CVA, ARF, Chemo, Hep., AIDS, mental health diagnosis, sleep apnea, morbid obesity)? @ -None Was patient admitted / discharged? Hospital course, mention meds given and route, prescriptions, significant lab abnormalities, going to OR and other pertinent info. @ -Patient did not want to be hospitalized and stated he could deal with the pain at home at this time patient will be sent home with an incentive spirometer. Patient also received Dilaudid in the emergency department and will take Motrin Tylenol at home. Undiagnosed new problem with uncertain prognosis? @ -No Drug Therapy requiring intensive monitoring for toxicity (Heparin, Nitro, Insulin, Cardizem)? @ -No Were any procedures done? @ -No Diagnosis/symptom? @ -Obturator hematoma Acute, or Chronic, or Acute on Chronic? @ -Acute Uncomplicated (without systemic symptoms) or Complicated (systemic symptoms)? @ -Complicated Side effects of treatment? @ -No Exacerbation, Progression, or Severe Exacerbation? @ -No Poses a threat to life or bodily function? How? (Chest pain, USA, DC, pneumonia, PE, COPD, DKA, ARF, appy, cholecystitis, CVA, Diverticulitis, Homicidal, Suicidal, threat to staff... and all critical care pts) @ -No Diagnosis/symptom? @ -Rib fracture Acute, or Chronic, or Acute on Chronic? @ -Acute Uncomplicated (without systemic symptoms) or Complicated (systemic symptoms)? @ -Complicated Side effects of treatment? @ -None Exacerbation, Progression, or Severe Exacerbation] @ -No Poses a threat to life or bodily function? @ -No - Lab Data Result diagrams: 10/14/24 07:52 10/14/24 07:52 Lab Results 10/14/24 10/14/24 10/14/24 Range/Units 07:52 07:52 07:52 WBC 9.3 (3.8-10.6) k/uL RBC 5.16 (4.30-5.90) m/uL Hgb 15.5 (13.0-17.5) gm/dL Hct 48.6 (39.0-53.0) % MCV 94.3 (80.0-100.0) fL MCH 30.1 (25.0-35.0) pg MCHC 31.9 (31.0-37.0) g/dL RDW 13.9 (11.5-15.5) % Plt Count 257 (150-450) k/uL MPV 7.3 Neutrophils % 75 % Lymphocytes % 12 % Monocytes % 8 % Eosinophils % 2 % Basophils % 1 % Neutrophils # 7.0 (1.3-7.7) k/uL Lymphocytes # 1.1 (1.0-4.8) k/uL Monocytes # 0.7 (0-1.0) k/uL Eosinophils # 0.2 (0-0.7) k/uL Basophils # 0.1 (0-0.2) k/uL PT 12.5 (10.0-12.5) sec INR 1.2 H (<1.2) APTT 29.6 (22.0-30.0) sec Sodium 137 (137-145) mmol/L Potassium 4.6 (3.5-5.1) mmol/L Chloride 102 (98-107) mmol/L Carbon Dioxide 31 H (22-30) mmol/L Anion Gap 4 mmol/L BUN 22 H (9-20) mg/dL Creatinine 0.91 (0.66-1.25) mg/dL Est GFR (CKD-EPI)AfAm >90 (>60 ml/min/1.73 sqM) Est GFR (CKD-EPI)NonAf 86 (>60 ml/min/1.73 sqM) Glucose 107 H (74-99) mg/dL Plasma Lactic Acid Hay (0.7-2.0) mmol/L Calcium 9.5 (8.4-10.2) mg/dL Total Bilirubin 0.8 (0.2-1.3) mg/dL AST 48 (17-59) U/L ALT 36 (4-49) U/L Alkaline Phosphatase 102 (38-126) U/L Total Protein 6.8 (6.3-8.2) g/dL Albumin 4.3 (3.5-5.0) g/dL Amylase 47 (30-110) U/L Lipase 118 (23-300) U/L Urine Color Urine Appearance (Clear) Urine pH (5.0-8.0) Ur Specific [place] (1.001-1.035) Urine Protein (Negative) Urine Glucose (UA) (Negative) Urine Ketones (Negative) Urine Blood (Negative) Urine Nitrite (Negative) Urine Bilirubin (Negative) Urine Urobilinogen (<2.0) mg/dL Ur Leukocyte Esterase (Negative) Urine RBC (0-5) /hpf Urine WBC (0-5) /hpf 10/14/24 10/14/24 Range/Units 07:52 10:12 WBC (3.8-10.6) k/uL RBC (4.30-5.90) m/uL Hgb (13.0-17.5) gm/dL Hct (39.0-53.0) % MCV (80.0-100.0) fL MCH (25.0-35.0) pg MCHC (31.0-37.0) g/dL RDW (11.5-15.5) % Plt Count (150-450) k/uL MPV Neutrophils % % Lymphocytes % % Monocytes % % Eosinophils % % Basophils % % Neutrophils # (1.3-7.7) k/uL Lymphocytes # (1.0-4.8) k/uL Monocytes # (0-1.0) k/uL Eosinophils # (0-0.7) k/uL Basophils # (0-0.2) k/uL PT (10.0-12.5) sec INR (<1.2) APTT (22.0-30.0) sec Sodium (137-145) mmol/L Potassium (3.5-5.1) mmol/L Chloride (98-107) mmol/L Carbon Dioxide (22-30) mmol/L Anion Gap mmol/L BUN (9-20) mg/dL Creatinine (0.66-1.25) mg/dL Est GFR (CKD-EPI)AfAm (>60 ml/min/1.73 sqM) Est GFR (CKD-EPI)NonAf (>60 ml/min/1.73 sqM) Glucose (74-99) mg/dL Plasma Lactic Acid Hay 0.9 (0.7-2.0) mmol/L Calcium (8.4-10.2) mg/dL Total Bilirubin (0.2-1.3) mg/dL AST (17-59) U/L ALT (4-49) U/L Alkaline Phosphatase (38-126) U/L Total Protein (6.3-8.2) g/dL Albumin (3.5-5.0) g/dL Amylase (30-110) U/L Lipase (23-300) U/L Urine Color Colorless Urine Appearance Clear (Clear) Urine pH 7.0 (5.0-8.0) Ur Specific [place] 1.034 (1.001-1.035) Urine Protein Negative (Negative) Urine Glucose (UA) 4+ H (Negative) Urine Ketones Negative (Negative) Urine Blood Small H (Negative) Urine Nitrite Negative (Negative) Urine Bilirubin Negative (Negative) Urine Urobilinogen <2.0 (<2.0) mg/dL Ur Leukocyte Esterase Negative (Negative) Urine RBC 9 H (0-5) /hpf Urine WBC <1 (0-5) /hpf Disposition Clinical Impression: Hematoma of muscle, Fracture, rib Disposition: HOME SELF-CARE Condition: Good Additional Instructions: Patient should hold his blood thinner for 5 days and then speak with his primary medical care doctor about when to continue Patient should take Motrin or Tylenol as needed for pain if he has any difficulty breathing or symptoms worsen or if pain is uncontrollable he should return to the emergency department Is patient prescribed a controlled substance at d/c from ED?: No Referrals: Rolly Randall MD [Primary Care Provider] - 1-2 days Time of Disposition: 11:51
[2024-10-14 08:08] LABS: Basophils # (A) 0.1 k/uL (0-0.2); Basophils % (A) 1 %; Eosinophils # (A) 0.2 k/uL (0-0.7); Eosinophils % (A) 2 %; HCT 48.6 % (39.0-53.0); HGB 15.5 gm/dL (13.0-17.5); Lymphocytes # (A) 1.1 k/uL (1.0-4.8); Lymphocytes % (A) 12 %; MCH 30.1 pg (25.0-35.0); MCHC 31.9 g/dL (31.0-37.0); MCV 94.3 fL (80.0-100.0); Mean Platelet Volume 7.3; Monocytes # (A) 0.7 k/uL (0-1.0); Monocytes % (A) 8 %; Neutrophils % (A) 75 %; Platelet Count 257 k/uL (150-450); RBC 5.16 m/uL (4.30-5.90); RDW 13.9 % (11.5-15.5); WBC 9.3 k/uL (3.8-10.6)
[2024-10-14 08:16] LABS: INR 1.2 (<1.2); Partial Thromboplastin Time 29.6 sec (22.0-30.0); Prothrombin Time 12.5 sec (10.0-12.5)
--- NOTE | 2024-10-14 08:16 | XR ---
EXAMINATION TYPE: XR KUB DATE OF EXAM: 10/14/2024 8:10 AM COMPARISON: None. CLINICAL INDICATION: Male, 69 years old with history of abdominal pain, TECHNIQUE: Single view of the abdomen. FINDINGS: Small bowel demonstrates no evidence for dilatation or air fluid levels. Gas and fecal material is seen in non-distended colon. No convincing evidence for pneumoperitoneum. No unusual calcifications. The lung bases are clear. The osseous structures are intact. IMPRESSION: 1. Overall nonobstructive bowel gas pattern. Moderate fecal stasis noted. [facility], , 10/14/2024 8:14 AM
[2024-10-14 08:18] LABS: ALT 36 U/L (4-49); AST 48 U/L (17-59); African American GFR (CKD) >90 (>60 ml/min/1.73 sqM); Albumin 4.3 g/dL (3.5-5.0); Alkaline Phosphatase 102 U/L (38-126); Amylase 47 U/L (30-110); Anion Gap 4 mmol/L; Blood Urea Nitrogen 22 mg/dL (9-20); Calcium 9.5 mg/dL (8.4-10.2); Carbon Dioxide 31 mmol/L (22-30); Chloride 102 mmol/L (98-107); Glucose 107 mg/dL (74-99); Lipase 118 U/L (23-300); Non-African American GFR(CKD) 86 (>60 ml/min/1.73 sqM); Potassium 4.6 mmol/L (3.5-5.1); Sodium 137 mmol/L (137-145); Total Bilirubin 0.8 mg/dL (0.2-1.3); Total Protein 6.8 g/dL (6.3-8.2)
--- NOTE | 2024-10-14 09:10 | CT ---
EXAMINATION TYPE: CT ChestAbdPelvis w con DATE OF EXAM: 10/14/2024 8:40 AM COMPARISON: None. CLINICAL INDICATION: Male, 69 years old with history of Trauma, RIGHT SIDED PAIN pain Technique: CT ChestAbdPelvis w con; Multiple axial images were obtained. Two-dimensional coronal and sagittal reconstructions were obtained. Contrast used:100 mL of Isovue 300 with IV Contrast, (None if empty) Oral contrast used: without Oral Contrast CT DLP: 1192.9 mGycm, Automated exposure control for dose reduction was used. Findings: CHEST: LUNGS/ PLEURA: No focal consolidation, pneumothorax or pleural effusion. Moderate centrilobular and p araseptal emphysema changes. AIRWAY: Patent and unremarkable. HEART: Size within normal limits. MEDIASTINUM: No gross evidence of adenopathy. VASCULATURE: No aortic aneurysm. MUSCULOSKELETAL: Right rib 11 fracture series 204 image 61, right rib SOFT TISSUES/LYMPH NODES: Unremarkable. LOWER NECK: No significant findings. ABDOMEN: ABDOMEN LIVER: Unremarkable GALLBLADDER AND BILE DUCTS: Unremarkable. PANCREAS: Unremarkable. SPLEEN: Unremarkable. ADRENAL GLANDS: Unremarkable. KIDNEYS AND URETERS: No evidence of hydronephrosis or renal calculus. The ureters are unremarkable. PELVIS BLADDER: Unremarkable REPRODUCTIVE: Unremarkable. ABDOMEN & PELVIS STOMACH AND BOWEL: No evidence of bowel obstruction. Gaseous distention of large bowel with moderate amount of stool. Colonic diverticula.r PERITONEUM/RETROPERITONEUM: No evidence of pneumoperitoneum or free fluid. VASCULATURE: Infrarenal abdominal aortic aneurysm measuring up to 4.7 x 4.1 cm. 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 MUSCULOSKELETAL: No acute osseous abnormalities, grade 2 anterolisthesis of L5 on S1 with bilateral s pondylolysis. Subchondral sclerosis of the femoral heads without without collapse. Asymmetric enlarge ment of the right obturator internus muscle series 201 image 107. LYMPH NODES: No gross evidence for lymphadenopathy. SOFT TISSUE/ABDOMINAL WALL: Fatty changes in the inguinal canals with probable small left fat-contain ing inguinal hernia. IMPRESSION: 1. Acute minimally displaced right rib 11 fracture. 2. Infrarenal abdominal aortic aneurysm measuring up to 4.7 x 4.1 cm. 3. 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 4. Extensive Colonic diverticulosis in the sigmoid colon possibly contributing to upstream gaseous d ilation of bowel and stool.. 5. Grade 2 anterolisthesis of L5 on S1 with bilateral spondylolysis. 6. Subchondral sclerosis of the bilateral femoral heads suggestive of avascular necrosis. No evidenc e for subchondral collapse. 7. Asymmetric thickening of the right obturator internus muscle further evaluation should be conside red with MRI with IV contrast of the pelvis. [facility], , 10/14/2024 9:08 AM
[2024-10-14 10:21] LABS: Appearance,Urine Clear (Clear); Bilirubin,Urine Negative (Negative); Blood,Urine Small (Negative); Color,Urine Colorless; Glucose,Urine (UA) 4+ (Negative); Ketones,Urine Negative (Negative); Leukocyte Esterase,Urine Negative (Negative); Nitrite,Urine Negative (Negative); Protein,Urine Negative (Negative); RBC,Urine 9 /hpf (0-5); Specific Gravity,Urine 1.034 (1.001-1.035); Urobilinogen,Urine <2.0 mg/dL (<2.0); WBC,Urine <1 /hpf (0-5)
[2024-10-14] MEDS: LORazepam 2 MG/ML INJ IV STA (11:56)
[2024-10-14] MEDS: MAGNESIUM CITRATE 296 ML BOTTLE PO ONE (12:51)
[2024-10-14 13:02] VITALS: BP 130/98; PULSE 78; RESP 18
== END 2024-10-14 13:02 | disposition home or self-care (01) ==
LOC: EC 07:05
DX: S22.31XA Fracture of one rib, right side, initial encounter for closed fracture (principal); M79.81 Nontraumatic hematoma of soft tissue; Z86.73 Personal history of transient ischemic attack (TIA), and cerebral infarction without residual deficits; Z87.891 Personal history of nicotine dependence; Z88.6 Allergy status to analgesic agent; X58.XXXA Exposure to other specified factors, initial encounter
CPT/HCPCS: 36415; 80053; 82150; 83605; 83690; 85025; 85610; 85730; 81001; 74018; 71260; 74177; 99284; 96374; 96375; 96361; J2060; J1171; Q9967

== ENCOUNTER → 2024-11-18 | Outpatient (CLI) | payer MEDICARE ==
[2024-11-18 15:54] LABS: BUN/Creat Ratio 21.25 Ratio (12.00-20.00); Blood Urea Nitrogen 25.5 mg/dL (9.0-27.0); Carbon Dioxide 29.1 mmol/L (21.6-31.8); Chloride 93 mmol/L (96-109); Glucose 105 mg/dL (70-110); Potassium 5.4 mmol/L (3.5-5.5); Sodium 131 mmol/L (135-145)
[2024-11-18 15:55] LABS: Calcium 9.5 mg/dL (8.7-10.3)
== END | disposition home or self-care (01) ==
LOC: LABWHC1 11:23
PROVIDERS: ATTEND Nurse Practitioner Adult Health
DX: I10 Essential (primary) hypertension (principal)
CPT/HCPCS: 36415; 80048

== ENCOUNTER → 2025-01-26 | Outpatient (CLI) | payer MEDICARE ==
[2025-01-26 14:58] LABS: ALT 20 U/L (10-49); AST 24 U/L (14-35); Albumin 4.1 g/dL (3.8-4.9); Albumin/Globulin Ratio 1.64 Ratio (1.60-3.17); Alkaline Phosphatase 102 U/L (41-126); BUN/Creat Ratio 22.15 Ratio (12.00-20.00); Blood Urea Nitrogen 28.8 mg/dL (9.0-27.0); Calcium 9.6 mg/dL (8.7-10.3); Carbon Dioxide 26.8 mmol/L (21.6-31.8); Chloride 103 mmol/L (96-109); Chol/HDL Ratio 2.45 Ratio; Globulin 2.5 g/dL (1.6-3.3); Glucose 127 mg/dL (70-110); LDL Cholesterol,Calculated 60.3 mg/dL (0.0-131.0); Potassium 5.2 mmol/L (3.5-5.5); Sodium 139 mmol/L (135-145); Total Bilirubin 0.3 mg/dL (0.3-1.2); Total Protein 6.6 g/dL (6.2-8.2); VLDL Calculation 13.68 mg/dL (5.00-40.00)
== END | disposition home or self-care (01) ==
LOC: LABWHC1 08:22
PROVIDERS: ATTEND Internal Medicine Interventional Cardiology
DX: I10 Essential (primary) hypertension (principal); E78.2 Mixed hyperlipidemia
CPT/HCPCS: 36415; 80053; 80061

== ENCOUNTER 2025-04-03 05:31 | Day surgery (SDC) | payer MEDICARE ==
[2025-04-03] MEDS ORDERED: LIDOCAINE 1% (10MG/ML) FOR IV START INTRADERMA PRN (06:03)
[2025-04-03] MEDS ORDERED: fentaNYL (PF) 50 MCG/ML 2 ML AMP IV PRN (06:03)
[2025-04-03] MEDS: IV FLUID CONTINUATION 1,000 ML IV ONE ×2 (06:39→13:15)
[2025-04-03] MEDS ORDERED: fentaNYL (PF) 50 MCG/ML 2 ML AMP ONE (07:25)
[2025-04-03] MEDS ORDERED: SUGAMMADEX SODIUM 100 MG/ML SYR IV ONE (07:25)
[2025-04-03] MEDS ORDERED: LIDOCAINE 1% INJ 10MG/ML (20 ML MDV) ONE (07:25)
[2025-04-03] MEDS ORDERED: VASOPRESSIN 20 UNIT/ML 1 ML VIAL ONE (07:25)
[2025-04-03] MEDS ORDERED: NEOSTIGMINE 1 MG/ML 10 ML VIAL ONE (07:25)
[2025-04-03] MEDS ORDERED: ATROPINE SULFATE 0.1 MG/ML 10ML SYRINGE ONE (07:25)
[2025-04-03] MEDS ORDERED: PROPOFOL 10 MG/ML 20 ML VIAL IV ONE (07:25)
[2025-04-03] MEDS ORDERED: MIDAZOLAM 2 MG/2 ML VIAL ONE (07:25)
[2025-04-03] MEDS ORDERED: ePHEDrine 50 MG/ML 1 ML VIAL ONE (07:25)
[2025-04-03] MEDS ORDERED: GLYCOPYRROLATE 0.2 MG/ML 2 ML VIAL ONE (07:25)
[2025-04-03] MEDS ORDERED: WATER FOR INJECTION, STERILE 10 ML VIAL IV ONE (07:25)
[2025-04-03] MEDS ORDERED: PHENYLEPHRINE 10 MG/ML VIAL ONE (07:25)
[2025-04-03] MEDS ORDERED: HEPARIN SODIUM,PORCINE 10,000 UNIT/ML 1 ML VIAL ONE (07:25)
[2025-04-03] MEDS ORDERED: ROCURONIUM 10 MG/ML (5 ML VIAL) IV ONE (07:25)
[2025-04-03] MEDS ORDERED: PHENYLEPHRINE-0.9% NACL SYG 1,000 MCG/10 ML SYRINGE ONE (07:25)
[2025-04-03] MEDS: HEPARIN SOD,PORK IN 0.45% NACL 25,000 UNIT in 0.45% NACL 1 250ML.BAG IV ONE (07:43)
[2025-04-03] MEDS: HEPARIN SODIUM (1,000 UNIT/ML) 1,000 UNIT in SODIUM CHLORIDE 0.9% 1,000 ML IRRIGATION ONE (07:44)
[2025-04-03] MEDS: HEPARIN SODIUM,PORCINE 10,000 UNIT in SODIUM CHLORIDE 0.9% 1,000 ML IRRIGATION ONE (07:44)
[2025-04-03] MEDS: HEPARIN SODIUM,PORCINE (1 ML) 2,500 UNIT in SODIUM CHLORIDE 0.9% 250 ML IRRIGATION ONE (07:44)
[2025-04-03] MEDS: LIDOCAINE 1% INJ 10MG/ML (20 ML MDV) SQ ONE (08:00)
--- NOTE | 2025-04-03 08:06 | P.HPCAR ---
History of Present Illness This is Dr. Plata dictating an H/P on this patient The patient was interviewed and examined IMPRESSION / ASSESSMENT: Paroxysmal atrial fibrillation with RVR, recurrent Postconversion pauses of up to 3.7 seconds History of typical atrial flutter with RVR 2 years back Sick sinus syndrome/chronotropic incompetence, postconversion sinus pauses Cardiomyopathy with an ejection fraction of 40% Currently on oral amiodarone and feeling therapy Mid RCA stenosis, 100% PLAN: A-fib ablation Atrial flutter ablation Diagnostic EP study for risk stratification, ischemic cardiomyopathy, old inferior wall MO, left ventricular ejection fraction 40%, sick sinus syndrome, symptomatic 9 reduce amiodarone thereafter. Consider permanent pacing. Device therapy based on results of EP study HPI Continues to have tiredness and fatigue as well as shortness of breath. He is unable to perform his usual activities now because he cannot keep up with them anymore. He has not had any loss of consciousness. His event monitor shows paroxysms of A-fib with RVR His EKGs in 2022 had shown atrial flutter with RVR He is currently on oral amiodarone feeling therapy Hypertension CAD but no angina ROS: No fever chills or rigors, no cough, phlegm or expectoration, no nausea, vomiting or diarrhea, no hematuria, dysuria, no musculoskeletal complaints, no strokes or seizures, no skin lesions. EXAMINATION: Blood pressure 153/54 mmHg 140/89 mmHg pulse rate in the 40s afebrile Heart sounds S1-S2 are soft no murmurs External jugular veins but no hepatojugular reflux No lower extremity edema Reduced breath sounds bilaterally no rhonchi no crackles, Abdomen is soft REVIEW OF LABS, ECG & MEDICAL DATA Amiodarone 200 mg daily, Lasix 40 mg daily, Farxiga, atorvastatin, Xarelto, low- dose long-acting metoprolol, Cozaar and aspirin Physical Exam Vitals: Vital Signs Temp Pulse Resp BP BP Pulse Ox 04/03/25 06:40 97.8 F 49 L 16 153/54 140/89 93 L Intake and Output 04/02/25 04/03/25 04/03/25 22:59 06:59 14:59 Intake Total 50 0 Balance 50 0 Intake: IV 50 0 Other: Weight 82.5 kg Past Medical History Past Medical History: Coronary Artery Disease (CAD), COPD, CVA/TIA, GERD/Reflux, Hyperlipidemia, Hypertension, Myocardial Infarction (MO) Additional Past Medical History / Comment(s): stroke JUN 22. no residuals from stroke. See Dr Plata's H&P,. hx rib fx last year. SOB with exertion per pt. Last Myocardial Infarction Date:: 2019? History of Any Multi-Drug Resistant Organisms: None Reported Past Surgical History: Tonsillectomy Additional Past Surgical History / Comment(s): ventral hernia repair Past Anesthesia/Blood Transfusion Reactions: No Reported Reaction Smoking Status: Former smoker - Past Family History Mother Family Medical History: Deep Vein Thrombosis (DVT) Physical Examination Vital Signs Temp Pulse Resp BP BP Pulse Ox 04/03/25 06:40 97.8 F 49 L 16 153/54 140/89 93 L Intake and Output 04/02/25 04/03/25 04/03/25 22:59 06:59 14:59 Intake Total 50 0 Balance 50 0 Intake: IV 50 0 Other: Weight 82.5 kg Results Current Medications Generic Name Dose Route Start Last Admin Trade Name Freq PRN Reason Stop Dose Admin Fentanyl Citrate 50 mcg 04/03/25 06:03 Fentanyl (Pf) 50 Mcg/Ml 2 Ml Amp IV 04/04/25 06:02 Q3M PRN Phase I - Pain Control Sodium Chloride 1,000 mls @ 20 mls/hr 04/03/25 06:03 Saline 0.9% IV 05/03/25 06:02 .Q24H AVELINO Lactated Ringer's 1,000 mls @ 20 mls/hr 04/03/25 06:03 Lactated Ringers IV 05/03/25 06:02 .Q24H AVELINO Lidocaine HCl 0.1 ml 04/03/25 06:03 Lidocaine 1% (10mg/Ml) For Iv Start INTRADERMA 05/03/25 06:02 PER PROTOCOL PRN IV Start Intake and Output 04/02/25 04/03/25 04/03/25 22:59 06:59 14:59 Intake Total 50 0 Balance 50 0 Intake: IV 50 0 Other: Weight 82.5 kg
[2025-04-03 09:10] LABS: African American GFR (CKD) >90 (>60 ml/min/1.73 sqM); Anion Gap 6 mmol/L; Blood Urea Nitrogen 20 mg/dL (9-20); Calcium 8.5 mg/dL (8.4-10.2); Carbon Dioxide 22 mmol/L (22-30); Chloride 99 mmol/L (98-107); Glucose 103 mg/dL (74-99); Non-African American GFR(CKD) >90 (>60 ml/min/1.73 sqM); Sodium 127 mmol/L (137-145)
[2025-04-03 09:16] LABS: Potassium 5.3 mmol/L (3.5-5.1)
[2025-04-03] MEDS: IOPAMIDOL-370 100ML BTL INJ ONE (10:21)
--- NOTE | 2025-04-03 10:58 | P.EPPROC ---
- EP Procedure Note Electrophysiology Procedure Note: PROCEDURE A. fib ablation PVI, left atrial septal ablation DIAGNOSIS Paroxysmal atrial fibrillation, symptomatic, refractory to therapy Sustained atrial flutter with RVR, documented Underlying sick sinus syndrome History of ischemic cardiomyopathy, left ventricular ejection fraction of 40% in the past, RCA stenting RESULT No left atrial appendage mass seen on intracardiac echo LV function appeared normal on intracardiac echo, mildly thickened pericardium without effusion Calcified femoral and iliac arteries on fluoroscopy Successful A. fib ablation/pulmonary vein isolation of all veins using cryo- ablation Complete entrance block in all 4 veins confirmed No evidence for phrenic nerve injury Left atrial septal ablation Ablation for typical atrial flutter in the cavotricuspid isthmus Esophageal deflection YES, rightward deflection PROCEDURE DETAILS Written informed consent prior to procedure. Patient brought to the EP lab. General anesthesia given. Heparin administered. A city maintained above 300 seconds Both groins prepped and draped per protocol and venous sheaths placed. Esophagus intubated, circa catheter for temperature monitoring an endoscope for possible esophageal deflection. Phrenic nerve monitoring performed. Esophageal temperature monitoring perfor med. Esophageal deflection performed if circa catheter overlapping with the balloon or circa temperature less than 27.5°C Intracardiac echocardiography performed. Pericardium evaluated. Left atrial appendage evaluated. Left atrium evaluated along with pulmonary veins Transseptal catheterization performed under fluoroscopic guidance and intracardiac echo guidance Cryoablation sheath exchanged, balloon catheter along with achieve catheter placed in the left atrium. Pulmonary veins isolated in the following sequence: Left superior pulmonary vein followed by left inferior pulmonary vein, followed by right inferior pulmonary vein and lastly right superior pulmonary vein. Phrenic nerve stimulation along with capture thresholds within the SVC and right superior pulmonary vein to identify the phrenic nerve proximity to the cryo- balloon. Pulmonary veins isolated and confirmed with entrance and exit block. Phrenic nerve integrity confirmed at the end of the procedure Ablation of the left atrial septum performed with cannulation of the inferior branch of the right superior vein to achieve ablation of the posterior septum of the left atrium with cryoablation. Ablation of electrograms confirmed Cavotricuspid isthmus was mapped. Intracardiac echo revealed a small subeustachian pouch and a thick eustachian ridge A complete RF line of block was made Bidirectional block was proven with differential pacing Diagnostic catheters for the high right atrium, His bundle, coronary sinus placed. LA and RA pressures recorded LA pressure: Diagnostic EP study with coronary sinus pacing and recording Baseline measurements: MN interval 183 ms, QRS 101 ms, QT 496 ms and sinus cycle length 1093 ms AH 69 and HV 33 ms Sinus node recovery times and a pacing cycle length of 600 ms was 1297 ms AV node Wenckebach block 390 ms EP testing was performed post drug infusion Ventricular extrastimulation protocol with single extrastimuli No inducible VT. Ventricular ERP 600/300 ms Venous sheaths were removed and hemostasis assured with a closure device. Patient extubated and transferred to recovery PROCEDURES PERFORMED Diagnostic EP study CS pacing and recording Left and right transseptal catheterization Catheter the mapping of the tachycardia Intracardiac echocardiography Pulmonary vein isolation with transseptal and comprehensive EPS, [id number] Ablation of additional discrete arrhythmia, [id number] Drug infusion, +[id number] Left atrial septal ablation, +[id number]
--- NOTE | 2025-04-03 11:01 | P.PRLE ---
RE: WendySriram Marco Dear Rolly Mr. Nguyen underwent an EP study and ablation for Paroxysmal atrial fibrillation with PVI and left atrial septal ablation Paroxysmal atrial flutter with RVR with confirmed bidirectional block with differential pacing He has a history of cardiomyopathy with an ejection fraction of 40% in the past but intracardiac echo revealed significant improvement in his LV systolic function I have stopped amiodarone and will continue beta-blockers and all his other medications including Xarelto He will follow-up with you and Dr. Mcneil as before If he continues to have symptomatic sick sinus syndrome despite stopping amiodarone, I would recommend permanent pacing Thank you for entrusting me with the care of the patient Warm regards Sincerely Stephane Plata
[2025-04-03] MEDS: ePHEDrine 50 MG/ML 1 ML VIAL IVP STA (11:33)
[2025-04-03] MEDS: SODIUM CHLORIDE 0.9% 1,000 ML IV SCH (12:25)
[2025-04-03 15:38] LABS: Basophils # (A) 0.04 10*3/uL (0.00-0.10); Basophils % (A) 0.3 %; Eosinophils # (A) 0.03 10*3/uL (0.04-0.35); Eosinophils % (A) 0.2 %; HCT 42.9 % (39.6-50.0); HGB 14.5 g/dL (13.0-17.0); Lymphocytes % (A) 5.8 %; MCH 31.3 pg (27.0-32.0); MCHC 33.8 g/dL (32.0-37.0); MCV 92.5 fL (80.0-97.0); Mean Platelet Volume 9.2 fL (9.5-12.2); Monocytes # (A) 1.34 10*3/uL (0.20-1.00); Monocytes % (A) 9.7 %; Neutrophils # (A) 11.58 10*3/uL (1.80-7.70); Neutrophils % (A) 83.5 %; Platelet Count 209 10*3/uL (140-440); RBC 4.64 10*6/uL (4.40-5.60); RDW 13.3 % (11.5-14.5); WBC 13.86 10*3/uL (4.50-10.00)
[2025-04-03 15:51] LABS: ALT 27 U/L (4-49); African American GFR (CKD) >90 (>60 ml/min/1.73 sqM); Albumin 3.4 g/dL (3.5-5.0); Albumin/Globulin Ratio 1.5; Anion Gap 5 mmol/L; Blood Urea Nitrogen 19 mg/dL (9-20); Calcium 8.2 mg/dL (8.4-10.2); Carbon Dioxide 23 mmol/L (22-30); Chloride 101 mmol/L (98-107); Globulin 2.3 g/dL; Glucose 100 mg/dL (74-99); Non-African American GFR(CKD) >90 (>60 ml/min/1.73 sqM); Sodium 129 mmol/L (137-145); Total Bilirubin 0.8 mg/dL (0.2-1.3); Total Protein 5.7 g/dL (6.3-8.2)
[2025-04-03 15:57] LABS: AST 70 U/L (17-59); Alkaline Phosphatase 66 U/L (38-126); Potassium 5.1 mmol/L (3.5-5.1)
[2025-04-03] MEDS: LACTATED RINGERS 1,000 ML IV SCH (17:08)
[2025-04-03] MEDS: ACETAMINOPHEN IV (For NPO) 1,000 MG in EMPTY BAG 1 BAG IVPB ONE (17:08)
[2025-04-03] MEDS: ONDANSETRON 4 MG/2 ML VIAL IVP ONE (17:08)
[2025-04-03] MEDS: DEXAMETHASONE SOD PHOSPHATE 4 MG/ML 1 ML VIAL IV ONE (17:08)
[2025-04-03] MEDS: SODIUM CHLORIDE 0.9% 500 ML 500 ML IV ONE (17:09)
[2025-04-03] MEDS: SYMBICORT 160-4.5 MCG INHALER INHALATION SCH (19:52)
[2025-04-03] MEDS: LATANOPROST 0.005% OPHTH DROPS 2.5 ML BTL BOTH EYES SCH (20:20)
[2025-04-03] MEDS: ATORVASTATIN 40 MG TAB PO SCH (20:20)
[2025-04-03] MEDS: ACETAMINOPHEN TAB 325 MG TAB PO PRN (23:13)
[2025-04-03] MEDS: ALBUTEROL NEBULIZED 2.5 MG/3 ML INHALATION PRN (23:40)
[2025-04-04] MEDS: TIOTROPIUM 2.5 MCG INHALER INHALATION SCH (07:28)
[2025-04-04 08:44] VITALS: BP 105/70; PULSE 67; RESP 18; TEMP 97.4
[2025-04-04] MEDS: DAPAGLIFLOZIN PROPANEDIOL 10 MG TABLET PO SCH (09:21)
[2025-04-04] MEDS: TAMSULOSIN 0.4 MG CAP.ER.24H PO SCH (09:21)
[2025-04-04] MEDS: RIVAROXABAN 20 MG TAB PO SCH (09:21)
[2025-04-04] MEDS: FUROSEMIDE 40 MG TAB PO SCH (09:21)
[2025-04-04] MEDS: LOSARTAN 25 MG TAB PO SCH (09:21)
[2025-04-04] MEDS: METOPROLOL SUCCINATE (ER) 25 MG TAB.ER.24H PO SCH (09:21)
[2025-04-04] MEDS: ASPIRIN 81 MG PO SCH (09:21)
--- NOTE | 2025-04-04 11:36 | P.DS ---
Providers Attending physician: Stephane Plata Primary care physician: [facility] Course: Patient is doing well this morning. He denies any chest discomfort dizziness lightheadedness. He is sitting up at the edge of the bed. He has been ambulating around the room. Yesterday following anesthesia his blood pressure was low and he was somewhat hypothermic but he has recovered well He maintained sinus rhythm EKG today is normal Groins of healed well minimal tenderness no swelling Heart sounds are normal and regular no murmurs Breath sounds are clear no rhonchi no crackles Blood pressure over 70 mmHg afebrile temperature 97.4 F pulse ox 94% on nasal cannula Impression paroxysmal atrial fibrillation status post A-fib ablation with PVI and left atrial septal ablation Of documented typical atrial flutter, status post ablation for typical atrial flutter with bidirectional block Improvement in LV systolic function on intracardiac echo. LV function appeared near normal. Past history of ischemic cardiomyopathy ejection fraction 40% Coronary artery disease status post coronary stenting to the RCA in the past Plan stop amiodarone Continue Farxiga atorvastatin Xarelto 20 mg p.o. daily uninterrupted Continue Toprol-XL 25 mg daily and Cozaar and a baby aspirin follow-up 2D echo and Doppler study Plan - Discharge Summary Discharge Rx Participant: No New Discharge Prescriptions: Discontinued Amiodarone [Cordarone] 200 mg PO DAILY #30 tab No Action Tamsulosin HCl 0.4 mg PO DAILY Vitamin B Complex 1 cap PO DAILY Ubidecarenone [Co Q-10] 100 mg PO DAILY Glucosamine Sulfate 500 mg PO DAILY Aspirin 81 mg PO DAILY #90 chewable Nitroglycerin Sl Tabs [Nitrostat] 0.4 mg SUBLINGUAL Q5M PRN #25 tab PRN Reason: Chest Pain Latanoprost [Latanoprost 0.005%] 1 drop BOTH EYES HS Losartan [Cozaar] 25 mg PO DAILY #30 tab Furosemide [Lasix] 40 mg PO DAILY #0 Albuterol Nebulized [Ventolin Nebulized] 2.5 mg INHALATION RT-Q6H PRN PRN Reason: Shortness Of Breath Rivaroxaban [Xarelto] 20 mg PO DAILY Budesonide/Glycopyr/Formoterol [Breztri Aerosphere Inhaler] 2 puff INHALATION RT-BID hydrOXYzine HCL [Atarax] 25 mg PO HS Atorvastatin Calcium [Lipitor] 40 mg PO HS Dapagliflozin Propanediol [Farxiga] 10 mg PO DAILY Metoprolol Succinate (ER) [Toprol XL] 25 mg PO DAILY #30 tab Discharge Medication List Tamsulosin HCl 0.4 mg PO DAILY 02/23/15 [History] Ubidecarenone [Co Q-10] 100 mg PO DAILY 02/23/15 [History] Vitamin B Complex 1 cap PO DAILY 02/23/15 [History] Glucosamine Sulfate 500 mg PO DAILY 07/08/18 [History] Albuterol Nebulized [Ventolin Nebulized] 2.5 mg INHALATION RT-Q6H PRN 02/05/21 [History] Aspirin 81 mg PO DAILY #90 chewable 02/06/21 [Rx] Nitroglycerin Sl Tabs [Nitrostat] 0.4 mg SUBLINGUAL Q5M PRN #25 tab 02/06/21 [Rx] Atorvastatin Calcium [Lipitor] 40 mg PO HS 07/04/24 [History] Budesonide/Glycopyr/Formoterol [Breztri Aerosphere Inhaler] 2 puff INHALATION RT-BID 07/04/24 [History] Dapagliflozin Propanediol [Farxiga] 10 mg PO DAILY 07/04/24 [History] Latanoprost [Latanoprost 0.005%] 1 drop BOTH EYES HS 07/04/24 [History] Rivaroxaban [Xarelto] 20 mg PO DAILY 07/04/24 [History] hydrOXYzine HCL [Atarax] 25 mg PO HS 07/04/24 [History] Furosemide [Lasix] 40 mg PO DAILY #0 07/10/24 [Rx] Losartan [Cozaar] 25 mg PO DAILY #30 tab 07/10/24 [Rx] Metoprolol Succinate (ER) [Toprol XL] 25 mg PO DAILY #30 tab 07/10/24 [Rx] Follow up Appointment(s)/Referral(s): Nadine Mcneil MD [STAFF PHYSICIAN] - 1 Week (Office will call patient with appointment ) Patient Instructions/Handouts: Heart Catheterization (DC) Activity/Diet/Wound Care/Special Instructions: Post EP study - Ablation instructions 1. Keep access sites dry for 2 days. 2. No heavy lifting or straining for 2 days. 3. Avoid bending the hips repeatedly for 2 days. 4. You may go up and down stairs slowly 5. If you have had an ablation for atrial fibrillation or atrial flutter and are on a blood thinner, do not stop the blood thinner even temporarily for 3 months post ablation Call if the following is noted 1. Bleeding, increasing swelling or pain at the access sites. 2. Increasing chest discomfort, especially upon taking a deep breath. 3. Increasing shortness of breath, at rest or with exertion. 4. Undue cough / phlegm 5. Difficulty or pain while swallowing. 6. Pain or change in color in the extremities. 7. Fever, chills, rigors. 8. Increasing headache or neurologic symptoms. 9. Dizziness, fainting, palpitations For patients who have undergone an A-fib ablation /atrial flutter ablation Strict instruction; do NOT stop anticoagulation (Eliquis/Xarelto/Pradaxa) for the next 2 months temporarily, for any elective, nonurgent surgery. This increases the risk of stroke, post A-fib ablation Amiodarone-stop Discharge Disposition: HOME SELF-CARE
== END 2025-04-04 10:50 | disposition home or self-care (01) ==
LOC: CATHEP 05:31 → 6NMEDSUR 10:30 → CATHEP 04-04 10:50
PROVIDERS: ATTEND Internal Medicine Clinical Cardiac Electrophysiology
DX: I48.0 Paroxysmal atrial fibrillation (principal); E78.5 Hyperlipidemia, unspecified; I10 Essential (primary) hypertension; I25.10 Atherosclerotic heart disease of native coronary artery without angina pectoris; I25.2 Old myocardial infarction; I25.5 Ischemic cardiomyopathy; I48.3 Typical atrial flutter; I49.5 Sick sinus syndrome; J44.9 Chronic obstructive pulmonary disease, unspecified; Z79.01 Long term (current) use of anticoagulants; Z79.82 Long term (current) use of aspirin; Z79.84 Long term (current) use of oral hypoglycemic drugs; Z79.899 Other long term (current) drug therapy; Z86.73 Personal history of transient ischemic attack (TIA), and cerebral infarction without residual deficits; Z87.891 Personal history of nicotine dependence; Z95.5 Presence of coronary angioplasty implant and graft
CPT/HCPCS: 94640 ×3; 93623; 93655; 93656; 86900; 86901; 80053; 80048; 85025; 86850; C1759; C1894; C1769; C1760 ×3; C1730 ×2; C1733; C1766; C1732; J1644 ×4; J2003; Q9967; 93005